=== PATIENT | male | born 1945 | race Caucasian/White ===

== ENCOUNTER 2017-02-10 11:01 | Outpatient (CLI) | payer MEDICARE, OTHER ==
--- NOTE | 2017-02-10 15:07 | CT ---
CT ANGIOGRAM OF THE ABDOMINAL AORTA AND BILATERAL LOWER EXTREMITY RUNOFF CT ANGIOGRAM INCLUDING 3D RE NDERING: History: 71-year-old male with atherosclerotic redding arteries of extremities. Prostate CA with radiation two years ago. Prior cholecystectomy and back surgery. FINDINGS: Prominent right coronary artery calcific disease. Status post cholecystectomy. Moderate to severe generalized atherosclerotic calcification of the abdominal aorta including minimal focal aneurysmal dilatation of the infrarenal abdominal aorta up to 2.5 cm in AP dimension maximally . Atherosclerotic calcific disease involving right and left common iliac and external iliac arteries with proximal common iliac artery stenosis up to 50-60% of the proximal left common iliac artery and 50% of the right common iliac artery. There are bilateral fat containing inguinal hernias. There is c olonic diverticulosis without diverticulitis. Multilevel variable severity canal, lateral recess, and foraminal stenosis of the lumbar spine. Multiple surgical clips in the pelvis. There are moderate stenosis changes of both right and left com mon femoral arteries up to 50-60% range. Right and left superficial femoral arteries demonstrate nume chandrika foci of 50-70% stenosis bilaterally but no evidence for occlusive disease. No significant stenot ic changes within the popliteal arteries bilaterally. There is three vessel run off into both right and left lower legs down to the level of the upper ankl e regions bilaterally. No evidence for occlusive disease. IMPRESSION: Mostly moderate to severe arterial vascular calcific disease of the aorta and both run off lower extr emity vessels with multiple foci of up to 50-60% stenosis of the right and left common iliac arteries and common femoral arteries and up to 50-70% stenoses at multiple levels involving both right and le ft superficial femoral arteries but no evidence for occlusive disease. Bilateral three vessel lower e xtremity ruff off. No evidence of three vessel occlusive disease. Bilateral fat containing inguinal hernias. Colonic diverticulosis without diverticulitis. Multilevel variable severity canal, lateral recess, and foraminal stenosis. Post op changes involving the pelvis and status post cholecystectomy. No significant changes involving the celiac, superior mesenteric ar ramana, inferior mesenteric arteries or renal arteries. POS: [facility]
== END 2017-02-10 11:02 | disposition home or self-care (01) ==
LOC: CT 11:01
PROVIDERS: ATTEND Internal Medicine Cardiovascular Disease
DX: I70.213 Atherosclerosis of native arteries of extremities with intermittent claudication, bilateral legs (principal)
CPT/HCPCS: 75635

== ENCOUNTER 2017-07-20 09:07 | Outpatient (CLI) | payer MEDICARE, OTHER ==
--- NOTE | 2017-07-20 11:51 | CT ---
CT ABDOMEN AND PELVIS WITH AND WITHOUT IV CONTRAST: Date: 07/20/17 INDICATION: History of hematuria and prostate cancer. Status post radiation therapy 3 years ago. COMPARISON: Prior CTA of the abdomen and pelvis with runoff dated 02/10/17. FINDINGS: No renal or ureteral calculus is demonstrated. There are bilateral renal vascular calcifications. No hydronephrosis is evident. No gross urothelial lesion is evident. There is marked thickening of the b ladder wall, which is stable to the prior exam, likely related to radiation-induced changes to the bl adder wall from prior radiation-induced cystitis. Lung bases are clear. There is mild fatty infiltration of the liver. The gallbladder is surgically absent. The pancreas and adrenal glands are normal appearing. No solid renal lesion is demonstrated. There is scattered colon ic diverticula. There is a fat-containing left inguinal hernia. There is bilateral common iliac graft stents which vail ve been placed since 02/10/17. There is scattered degenerative and osteoarthritic change. There is mild degenerative dextroscoliosis of the lumbar spine. IMPRESSION: 1. No solid renal lesion is evident. 2. Marked wall thickening involving the bladder is stable to the prior exam, likely related to radia tion therapy. 3. Postsurgical change of prostatectomy and interval placement of bilateral common iliac arterial st ents. 4. Fatty liver. 5. Cholecystectomy. 6. Other chronic findings as above. POS: [facility]
[2017-07-20] MEDS ORDERED: Iopamidol 370 76% 100 ML VIAL ONE (12:35)
== END 2017-07-20 09:08 | disposition home or self-care (01) ==
LOC: CT 09:07
PROVIDERS: ATTEND Urology
DX: C61 Malignant neoplasm of prostate (principal); N32.89 Other specified disorders of bladder; K76.0 Fatty (change of) liver, not elsewhere classified; R31.0 Gross hematuria; Z90.49 Acquired absence of other specified parts of digestive tract; Z90.79 Acquired absence of other genital organ(s)
CPT/HCPCS: 74178; 82565

== ENCOUNTER 2017-12-30 09:21 | Outpatient (CLI) | payer MEDICARE, OTHER ==
--- NOTE | 2017-12-30 12:07 | ULT ---
ABDOMINAL AORTIC ULTRASOUND: Date: 12-30-17 Comparison: None Provided Clinical History: Evaluate for abdominal aortic aneurysm. Technique: Multiplanar grayscale sonographic imaging of the abdominal aorta is obtained. Imaging includes color flow and spectral analysis. FINDINGS: Evaluation of the abdominal aorta is quite limited secondary to bowel gas and patient body habitus. T he proximal abdominal aorta is not well seen. The mid abdominal aorta demonstrates no evidence for an eurysm, measuring up to approximately 1.8 cm. Distal abdominal aorta is limited in assessment as well and measures up to approximately 2.5 cm. Common iliac arteries are nonvisualized. IMPRESSION: Limited assessment of the abdominal aorta secondary to body habitus and bowel gas. Distal abdominal a daniel appears to measure up to 2.5 cm. POS: [facility]
== END 2017-12-30 09:22 | disposition home or self-care (01) ==
LOC: BICULT 09:21
PROVIDERS: ATTEND General Practice
DX: I71.4 Abdominal aortic aneurysm, without rupture (principal)
CPT/HCPCS: 76775

== ENCOUNTER 2019-04-29 12:23 | Emergency (ER) | payer MEDICARE ==
[~2019-04-29 12:23] MED LIST: Iopamidol-370 76% 500 ML 1 ML ONE
[2019-04-29] MEDS ORDERED: Morphine 4 MG/ML VIAL ONE (13:39)
[2019-04-29 13:43] LABS: #Eosinphils 0.5 thou/uL (0.0-0.7); #Lymphocytes 1.2 thou/uL (1.20-3.40); #Monocytes 0.9 thou/uL (0.11-0.59); %Basophils 0.3 % (0.0-1.0); %Eosinophils 4.1 % (0.0-10.0); %Lymphocytes 9.6 % (21.0-51.0); %Monocytes 7.3 % (0.0-10.0); %Neutrophils 78.8 % (42.0-75.0); Hemoglobin 15.5 g/dL (14.0-18.0); Mean Corpuscular HGB CONC 34.4 g/dL (32.0-36.0); Mean Corpuscular Hemoglobin 32.6 pg (27.0-31.0); Mean Corpuscular Volume 94.7 fL (78.0-98.0); Mean Platelet Volume 8.7 fL (7.4-10.4); Platelet Count 218 thou/uL (130-400); RBC Distribution Width 13.2 % (11.5-14.5); Red Blood Cell (RBC) Count 4.77 mill/uL (4.70-6.10); White Blood Cell (WBC) Count 12.7 thou/uL (4.8-10.8)
[2019-04-29 14:12] LABS: ALT (SGPT) 25 U/L (8-55); AST (SGOT) 19 U/L (5-34); Albumin 4.3 g/dL (3.4-4.8); Alkaline Phosphatase 80 U/L (40-110); Anion Gap 12 mmol/L (10-20); BUN (Urea Nitrogen) 22 mg/dL (8.4-25.7); Bilirubin, Total 0.8 mg/dL (0.2-1.2); Calc. Creatinine Clearance 0 mL/min (70-130); Calcium 9.2 mg/dL (7.8-10.44); Carbon Dioxide 20 mmol/L (23-31); Chloride 107 mmol/L (98-107); Estimated GFR-MDRD 63; Glucose 104 mg/dL (83-110); Lipase 12 U/L (8-78); Potassium 3.7 mmol/L (3.5-5.1); Protein, Total 7.3 g/dL (5.8-8.1); Sodium 135 mmol/L (136-145)
[2019-04-29 14:29] LABS: Bacteria/HPF None Seen HPF (None Seen); Bilirubin Negative (Negative); Blood, Urine Negative (Negative); Clarity Clear (Clear); Glucose, Urine (Dipstick) Normal (Negative); Leukocyte Negative Leu/uL (Negative); Mucous/LPF 1+ LPF (<2+); Nitrite Negative (Negative); Protein, Urine (Dipstick) 70 mg/dL (Neg-Trace); RBC/HPF 0-3 HPF (0-3); Squamous Epithelial 0-3 HPF (0-3); Urobilinogen Normal mg/dL (Less than 2); WBC/HPF 0-3 HPF (0-3)
[2019-04-29] MEDS ORDERED: Pantoprazole 80 MG in Sodium Chloride 0.9% 100 ML IVP SCH (14:45)
--- NOTE | 2019-04-29 16:36 | CT ---
EXAM: Abdomen and pelvic CT scan with contrast: HISTORY: Abdominal pain diarrhea COMPARISON: 07/20/2017 FINDINGS: The visualized lung bases are clear. Liver: Evidence for some fatty changes in the liver. Gallbladder:Status post cholecystectomy. Pancreas:Unremarkable Spleen:Unremarkable. Adrenal glands:Unremarkable. Kidneys:Prominent renal vascular calcifications without overt renal calculi or acute obstruction. No solid or cystic renal mass. No evidence for bowel obstruction. No CT evidence for acute appendicitis. The urinary bladder is unremarkable. Reproductive system:Unremarkable No abscess, adenopathy, or abnormal fluid collection within the abdomen or pelvis. Focal aneurysmal dilatation of the infrarenal abdominal aorta up to 2.6 cm with marked atheroscleroti c calcific disease of the aorta and iliac arteries with bilateral iliac stents. Extensive surgical clips in the pelvis. Colonic diverticulosis without acute diverticulitis. Left fat-containing inguina l hernia. Multilevel lumbar spine spondylosis with some associated stenosis. IMPRESSION: No significant acute process in the abdomen or pelvis. Other findings as above.
[2019-04-29] MEDS ORDERED: Pantoprazole 40 MG VIAL ONE (17:42)
== END 2019-04-29 18:01 | disposition home or self-care (01) ==
LOC: ERS 12:23
DX: K92.2 Gastrointestinal hemorrhage, unspecified (principal); I10 Essential (primary) hypertension; E78.5 Hyperlipidemia, unspecified; J44.9 Chronic obstructive pulmonary disease, unspecified; G47.33 Obstructive sleep apnea (adult) (pediatric); Z87.891 Personal history of nicotine dependence; Z79.899 Other long term (current) drug therapy
CPT/HCPCS: 36415; 74177; 80053; 81003; 81015; 82274; 83690; 85025; 86850; 86900; 86901; 94640; 96361; 96365; 96366; C9113; J2270; J3490; J7620; Q9967

== ENCOUNTER 2019-08-04 08:24 | Outpatient (CLI) | payer MEDICARE, OTHER ==
[2019-08-04 09:55] LABS: #Eosinphils 0.2 thou/uL (0.0-0.7); #Monocytes 0.6 thou/uL (0.11-0.59); #Neutrophils 7.7 thou/uL (1.40-6.50); %Basophils 0.1 % (0.0-1.0); %Eosinophils 2.5 % (0.0-10.0); %Lymphocytes 10.5 % (21.0-51.0); %Monocytes 6.1 % (0.0-10.0); %Neutrophils 80.8 % (42.0-75.0); Mean Corpuscular HGB CONC 33.7 g/dL (32.0-36.0); Mean Corpuscular Hemoglobin 32.2 pg (27.0-31.0); Mean Corpuscular Volume 95.6 fL (78.0-98.0); Mean Platelet Volume 8.5 fL (7.4-10.4); Platelet Count 210 thou/uL (130-400); RBC Distribution Width 13.4 % (11.5-14.5); Red Blood Cell (RBC) Count 4.65 mill/uL (4.70-6.10); White Blood Cell (WBC) Count 9.6 thou/uL (4.8-10.8)
[2019-08-04 10:16] LABS: ALT (SGPT) 25 U/L (8-55); AST (SGOT) 19 U/L (5-34); Alkaline Phosphatase 72 U/L (40-110); Anion Gap 12 mmol/L (10-20); BUN (Urea Nitrogen) 25 mg/dL (8.4-25.7); Bilirubin, Total 0.8 mg/dL (0.2-1.2); Calc. Creatinine Clearance 0 mL/min (70-130); Calcium 9.3 mg/dL (7.8-10.44); Carbon Dioxide 26 mmol/L (23-31); Chloride 102 mmol/L (98-107); Estimated GFR-MDRD 56; Globulin 2.9 g/dL (2.4-3.5); Glucose 133 mg/dL (83-110); Potassium 4.1 mmol/L (3.5-5.1); Protein, Total 6.9 g/dL (5.8-8.1); Sodium 136 mmol/L (136-145)
[2019-08-04 17:50] LABS: SARS-CoV-2 MS2 Positive; SARS-CoV-2 N Gene Negative; SARS-CoV-2 S Gene Negative; SARS-CoV-2 orf1ab Negative
== END 2019-08-04 08:25 | disposition home or self-care (01) ==
LOC: LABBT 08:24
PROVIDERS: ATTEND Internal Medicine Cardiovascular Disease
DX: Z01.812 Encounter for preprocedural laboratory examination (principal); Z11.59 Encounter for screening for other viral diseases
CPT/HCPCS: 80053; 85025; U0003; 87635

== ENCOUNTER 2019-08-07 05:50 | Day surgery (SDC) | payer MEDICARE, OTHER ==
[2019-08-04 08:42] VITALS: BMI 33.3
[2019-08-07] MEDS ORDERED: Verapamil 5 MG/2 ML VIAL ONE (08:04)
[2019-08-07] MEDS ORDERED: Nitroglycerin 100MG/250ML BOT 250 ML ONE (08:04)
[2019-08-07] MEDS ORDERED: Heparin 10,000 UNITS/1 ML VIAL ONE (08:04)
[2019-08-07] MEDS ORDERED: Midazolam HCl 2 mg/2 ml Vial ONE (08:19)
[2019-08-07] MEDS ORDERED: Fentanyl 100 MCG/2 ML VIAL ONE (08:19)
[2019-08-07] MEDS ORDERED: Iopamidol 370 76% 100 ML VIAL ONE (09:16)
--- NOTE | 2019-08-07 22:23 | CON ---
DATE OF CONSULTATION: 08/07/2019 REQUESTING PHYSICIAN: Parish Johns MD PRIMARY CARE PHYSICIAN: Reji Henry MD CHIEF COMPLAINT: Dyspnea on exertion. HISTORY OF PRESENT ILLNESS: The patient is a 74-year-old man who smoke for about 30 years, but quit around 20 years ago. 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 Starting at about 2 years ago, however, he gets short of breath quite easily, and he claims that now it is at a point where simply walking 10 or 20 yards, he will get short of breath. He does note, however, that his breathing is not consistently bad and we both noticed that during the start of our interview, he seemed noticeably short of breath, but as the interview progressed, his breathing seemed easier. He is rather vague about any associated chest pressure or heaviness. Dr. Johns was able to elicit that history. I was not able to clearly elicit such a history. Finally, he said that occasionally he gets a bit of chest heaviness, but it is certainly not a prominent feature of his symptoms. PAST MEDICAL HISTORY: Significant for aortoiliac peripheral vascular disease, hypertension, obstructive sleep apnea, and prostate cancer. He has undergone previous prostatectomy and bilateral common iliac stenting. MEDICATIONS: 1. Adult aspirin a day. 2. Lisinopril 20 mg/hydrochlorothiazide 25 mg once a day. 3. Isordil 30 mg a day has recently been added. 4. Zetia 10 mg a day. 5. Crestor 40 mg a day. 6. Ventolin rescue inhaler. 7. Symbicort two puffs b.i.d. scheduled. 8. P.r.n. omeprazole. ALLERGIES: HE DENIES ANY MEDICAL ALLERGIES. SOCIAL HISTORY: He quit smoking about 20 years ago. FAMILY HISTORY: Significant for cardiovascular disease in his father. REVIEW OF SYSTEMS: Most notable for his dyspnea on exertion. He denies any focal eye speech, facial or extremity symptoms consistent with TIAs. He is equivocal about any chest pain, pressure, or squeezing. He does report numbness and burning pain in the soles of his feet that is worse when he walks. He reports some hesitancy to his stream and dribbling afterward. PHYSICAL EXAMINATION: GENERAL: He is an obese man who initially appeared short of breath just simply talking to me and was quite obviously breathing through pursed lips. During the course of our interview, both aspects of his breathing seemed to improve. HEENT: His height is 6 feet 2 inches. Weight is 253 pounds. Heart rate was 80, blood pressure 134/80. He has no xanthelasma. No JVD. No carotid bruits. CHEST: Clear, but distant breath sounds. When I asked him to blow out hard against my hand, he was able to move air for fairly long periods of time and it seemed to be diminished in force. HEART: Regular rate and rhythm. ABDOMEN: Obese, soft, and nontender. Palpable radial and dorsalis pedis pulses bilaterally. He had some spider varicosities, but no bulging varicosities. No clubbing, cyanosis, or edema. NEUROLOGIC: Grossly nonfocal. LABORATORY DATA: His white count was 9.6, hemoglobin 15.0, hematocrit 44.5, platelets 210,000. Electrolytes were normal. Glucose 133, BUN 25, creatinine 1.27, estimated GFR 56. Calcium is 9.2, protein 6.9, albumin 4.0, bilirubin 0.8, alkaline phosphatase 72, AST 19, ALT 25. About 3 months ago, he had lipids in the middle of the afternoon, that were triglycerides of 90, cholesterol 134, LDL 77, HDL 39. At the same time, his PSA was less than 0.02. I am not able to find a chest x-ray in our system. In 2017, he had a chest x-ray in our system that showed aortic knob calcification with some prominence to parenchymal markings. CT scan done about that same time that showed calcification in the arch and descending aorta with some scattered posterior calcification in the ascending aorta at about the level of the PA bifurcation. His cardiac catheterization shows a right-dominant system with approximately occluded right coronary that fills by [id number] collaterals. He has about a 50% or 60% distal left main lesion that extends into the origin of a fairly large circumflex with a ramus type OM1 and then posterolateral OM 2. He has about a 95% ostial LAD lesion. No ventriculogram or LV pressures were taken. He had as an outpatient in Dr. Johns' office, an echocardiogram that showed an LVEF of 55% to 60% with borderline LVH with normal size of the left and right atria and normal aortic valve. There is only mild tricuspid regurgitation and mild mitral regurgitation. He had a Lexiscan stress test that showed no stress-induced changes in his EKG with perfusion defects in the inferior and inferolateral davidson under stress but normal perfusion at rest. The resting EF was 61% and stress EF was 56%. IMPRESSION AND RECOMMENDATIONS: Left main coronary artery disease with modest compromise of his circumflex system, but a very high-grade ostial LAD lesion and occlusion of his right coronary. His left ventricular ejection fraction even under stress was fairly good, possible that his shortness of breath is an anginal equivalent, but it seems out of proportion to be all cardiac. He has a pulmonology appointment pending. He should have updated chest x-ray perhaps even a chest CT scan and formal PFTs. I think it is unlikely that his lung function is normal, but I also think it is unlikely that it is bad enough to make him a prohibitive risk, particularly given the significance of his coronary anatomy. Job ID: [id number]
== END 2019-08-07 12:20 | disposition home or self-care (01) ==
LOC: CCL 05:50
PROVIDERS: ATTEND Internal Medicine Cardiovascular Disease
PROC: 4A023N7 Measurement of Cardiac Sampling and Pressure, Left Heart, Percutaneous Approach (ICD-10-PCS; principal; 2019-08-07)
PROC: B2111ZZ Fluoroscopy of Multiple Coronary Arteries using Low Osmolar Contrast (ICD-10-PCS; 2019-08-07)
DX: I25.10 Atherosclerotic heart disease of native coronary artery without angina pectoris (principal); I25.82 Chronic total occlusion of coronary artery; I10 Essential (primary) hypertension; G47.33 Obstructive sleep apnea (adult) (pediatric); I08.8 Other rheumatic multiple valve diseases; I73.9 Peripheral vascular disease, unspecified; E66.9 Obesity, unspecified; Z68.33 Body mass index [BMI] 33.0-33.9, adult; Z85.46 Personal history of malignant neoplasm of prostate; Z87.891 Personal history of nicotine dependence; Z79.82 Long term (current) use of aspirin; Z79.899 Other long term (current) drug therapy; Z95.820 Peripheral vascular angioplasty status with implants and grafts
CPT/HCPCS: 93454; 99152; C1769; J1644; J2250; J3010; Q9967

== ENCOUNTER 2019-08-29 12:53 | Outpatient (CLI) | payer MEDICARE, OTHER ==
--- NOTE | 2019-08-29 14:17 | RAD ---
EXAM: CHEST TWO VIEWS: 08/29/19 HISTORY: Dyspnea, COPD. Shortness of breath. COMPARISON: 09/03/16. FINDINGS: Heart size is within normal limits. The lungs are clear. Mild biapical pleural thickening as well as some bilateral pleural thickening in the lateral chest region. No confluent pneumonia, overt edema, o r pleural effusion. IMPRESSION: Bilateral pleural thickening. No acute intrathoracic disease. Atherosclerosis of the aorta. POS: [facility]
== END 2019-08-29 12:54 | disposition home or self-care (01) ==
LOC: BICRAD 12:53
PROVIDERS: ATTEND Internal Medicine Critical Care Medicine
DX: R06.00 Dyspnea, unspecified (principal); I70.0 Atherosclerosis of aorta; J92.9 Pleural plaque without asbestos
CPT/HCPCS: 71046

== ENCOUNTER 2019-09-05 12:24 | Outpatient (CLI) | payer MEDICARE, OTHER ==
--- NOTE | 2019-09-05 13:04 | RAD ---
EXAM: Chest 2 views: HISTORY: Shortness of breath and COPD COMPARISON: 08/29/2019 FINDINGS: There is a normal-sized cardiomediastinal silhouette. There is no evidence of consolidation, mass, or pleural effusion. The bones are unremarkable. IMPRESSION: No evidence of acute cardiopulmonary disease
--- NOTE | 2019-09-05 13:45 | CT ---
EXAM: CT of the chest with contrast HISTORY: Shortness of breath and COPD COMPARISON: None TECHNIQUE: Multiple contiguous axial images were obtained in a CT the chest with contrast. Coronal an d sagittal reformats were performed. FINDINGS: HEART: Normal in size without focal cardiac abnormality. Calcic lesions in the coronary arteries and aorta. MEDIASTINUM: No hilar or mediastinal lymphadenopathy. LUNGS: No focal infiltrates, nodules, or masses. PLEURAL SPACE: No pneumothorax or pleural effusion. CHEST WALL SOFT TISSUES: Unremarkable OSSEOUS STRUCTURES: Mild degenerative changes in the spine. VISUALIZED SUBDIAPHRAGMATIC STRUCTURES: Unremarkable IMPRESSION: No evidence of acute intrathoracic abnormality.
== END 2019-09-05 12:25 | disposition home or self-care (01) ==
LOC: SCSCT 12:24
PROVIDERS: ATTEND Thoracic Surgery (Cardiothoracic Vascular Surgery)
DX: J44.9 Chronic obstructive pulmonary disease, unspecified (principal); I25.118 Atherosclerotic heart disease of native coronary artery with other forms of angina pectoris
CPT/HCPCS: 71046; 71260; 82565

== ENCOUNTER 2019-09-10 11:13 | Inpatient (IN) | payer MEDICARE, OTHER ==
[2019-09-10 11:42] LABS: #Eosinphils 0.3 thou/uL (0.0-0.7); #Monocytes 0.9 thou/uL (0.11-0.59); #Neutrophils 7.7 thou/uL (1.40-6.50); %Basophils 0.1 % (0.0-1.0); %Eosinophils 2.8 % (0.0-10.0); %Lymphocytes 9.7 % (21.0-51.0); %Monocytes 8.8 % (0.0-10.0); %Neutrophils 78.6 % (42.0-75.0); Hemoglobin 15.1 g/dL (14.0-18.0); Mean Corpuscular HGB CONC 33.7 g/dL (32.0-36.0); Mean Corpuscular Hemoglobin 31.8 pg (27.0-31.0); Mean Corpuscular Volume 94.4 fL (78.0-98.0); Mean Platelet Volume 8.3 fL (7.4-10.4); Platelet Count 221 thou/uL (130-400); RBC Distribution Width 13.3 % (11.5-14.5); Red Blood Cell (RBC) Count 4.75 mill/uL (4.70-6.10); White Blood Cell (WBC) Count 9.7 thou/uL (4.8-10.8)
[2019-09-10 12:05] LABS: ALT (SGPT) 24 U/L (8-55); AST (SGOT) 18 U/L (5-34); Alkaline Phosphatase 79 U/L (40-110); Anion Gap 12 mmol/L (10-20); BUN (Urea Nitrogen) 23 mg/dL (8.4-25.7); Bilirubin, Total 0.6 mg/dL (0.2-1.2); Calc. Creatinine Clearance 0 mL/min (70-130); Calcium 9.6 mg/dL (7.8-10.44); Carbon Dioxide 25 mmol/L (23-31); Chloride 104 mmol/L (98-107); Estimated GFR-MDRD 58; Glucose 104 mg/dL (83-110); Potassium 3.9 mmol/L (3.5-5.1); Sodium 137 mmol/L (136-145)
--- NOTE | 2019-09-10 14:12 | RAD ---
CHEST ONE VIEW: History: Chest pain Comparison: 02-12-13, 09-05-2019 FINDINGS: The heart size is within normal limits considering the portable technique. There are some atheroscler otic changes of the aorta. The lungs are clear of any infiltrative process. There are no signs of shaniqua lure. IMPRESSION: No active intrathoracic disease. POS: [facility]
[2019-09-10] MEDS ORDERED: Aspirin Chewable 81 MG TAB ONE (14:23)
[2019-09-10 15:17] LABS: Troponin I 0.027 ng/mL (< 0.028)
[2019-09-10] MEDS ORDERED: Acetaminophen 325 MG TAB PO PRN (15:40)
[2019-09-10] MEDS ORDERED: Morphine 2 MG/ML VIAL SLOW IVP PRN (15:40)
[2019-09-10] MEDS ORDERED: Nitroglycerin 0.4 MG TAB (25 Tab Bottle) PO PRN (15:40)
[2019-09-10] MEDS ORDERED: hydrALAZINE 20 MG/ML VIAL SLOW IVP PRN (15:40)
[2019-09-10 15:57] VITALS: BMI 34.3
[2019-09-10] MEDS ORDERED: Enoxaparin Sodium 120 MG/0.8 ML SYRINGE SC SCH (16:30)
[2019-09-10] MEDS ORDERED: Communication Order-Pharmacy FS ONE (16:30)
[2019-09-10] MEDS: Nitroglycerin 2% Ointment 1 INCH/1 GM Packet TOP SCH (17:13)
[2019-09-10 17:45] LABS: Troponin I Less than 0.010 ng/mL (< 0.028)
[2019-09-10] MEDS: Mometasone 100 MCG/Formoterol 5 MCG 120 PUFF INHALER INH SCH (18:52)
--- NOTE | 2019-09-10 20:56 | HP ---
PRIMARY CARE PHYSICIAN: Reji Henry MD CHIEF COMPLAINT: Chest pain. HISTORY OF PRESENT ILLNESS: Mr. Meyer is a very pleasant 74-year-old gentleman, who has a history of coronary artery disease. He had recently a routine stress test done, which had some findings which were suggestive of coronary artery disease. He says that he was seen by Dr. Johns for this. He then underwent a cardiac catheterization, which apparently demonstrated multi-vessel coronary artery disease and he was sent to see Dr. Granado. It was felt that he would need at least a 3-vessel bypass surgery and the plan was to have this procedure done on September 21. He was instructed however that if he were to develop any chest pain, that he should come to the emergency room right away. The patient says that on yesterday he started having a dull pressure-like sensation in the center of his chest. He also noted a very sharp chest pain that followed this, it kind of went into his back. He rated it about a 5/10. There was no associated symptoms except for some nausea and he says he felt tired and had no energy. He said that it went away on its own and then the following morning he had some additional chest pain as well. Again, at rest very similar characteristics and for this reason, he came to the ER for evaluation. He denies any leg pain or leg swelling. No PND. No orthopnea. No palpitations. REVIEW OF SYSTEMS: All systems were reviewed and are negative except for that mentioned in the history of present illness. PAST MEDICAL HISTORY: Significant for hypertension, COPD, hyperlipidemia, coronary artery disease, aortoiliac peripheral vascular disease, obstructive sleep apnea, and prostate cancer. PAST SURGICAL HISTORY: He has had surgery for his prostate as well as back surgery and a cholecystectomy. ALLERGIES: NO KNOWN DRUG ALLERGIES. SOCIAL HISTORY: He is , has 2 children. His , Margareth, is his surrogate decision maker. He would like to be a full code. He is a former smoker. He quit about 25 years ago. Prior to that he smoked a pack a day for 25 years. Denies any alcohol use. FAMILY HISTORY: Significant for coronary artery disease in his father. CURRENT MEDICATIONS: 1. Lisinopril 10 mg daily. 2. Symbicort 80/4.5 two puffs twice a day. 3. Crestor 40 mg at bedtime. 4. Zetia 10 mg daily. 5. Metronidazole 500 mg twice a day. 6. Isosorbide mononitrate extended release 30 mg daily. 7. Aspirin 81 mg p.o. daily. PHYSICAL EXAMINATION: GENERAL: He is alert and oriented. He appears to be in no acute distress. He is well developed and well nourished. VITAL SIGNS: His blood pressure was 133/80, heart rate 74, respiratory rate of 22, and temperature is 96.7. HEENT: Pupils are equal, round, and reactive. Extraocular muscles are intact. His sclerae are anicteric. NECK: There is no adenopathy, possibly a very soft bruit on the right. CARDIOVASCULAR: He had a normal S1 and S2. I did not appreciate an S3 or S4. No murmurs, clicks, or rubs. ABDOMEN: Obese, soft, nontender, and nondistended. Positive for bowel sounds. He did have some diffuse abdominal pain primarily in the right and left flanks, but there is no rebound no guarding. No organomegaly. EXTREMITIES: He has 1+ edema. No calf tenderness. No joint effusions. NEUROLOGIC: The exam is grossly nonfocal. SKIN AND INTEGUMENT: No skin changes. No rash. LABORATORY DATA: Lab results and imaging on his EKG by my reading, sinus rhythm, no evidence of any ST wave changes, the rate was 72. Chest x-ray showed some cardiomegaly, otherwise, no infiltrates or effusions also by my reading. Lab results; white blood cell count was 6.7, hemoglobin 15.1, hematocrit is 44.8, and platelet count is 221. Sodium 137, potassium 3.9, chloride is 104, CO2 is 25, BUN of 23, creatinine 1.22, and glucose is 104. Troponin was 0.011. ASSESSMENT: This is a pleasant 74-year-old gentleman, who presents with chest pain in the setting of known coronary artery disease. He will be placed in observation. We will place him on aspirin and nitrates. We will hold off on a beta-margarita given his chronic obstructive pulmonary disease. Consult Cardiology to see if he would recommend pushing up his date for bypass surgery. 1. Hypertension. We will need to reconcile and restart his home medications and p.r.n. medicines and aortoiliac peripheral vascular disease. This will also need to be deferred until his coronary artery disease is addressed. 2. Prostate cancer. This is clinically quiescent at this time. Job ID: [id number]
[2019-09-10] MEDS ORDERED: Rosuvastatin 20 MG TAB PO SCH (21:00)
--- NOTE | 2019-09-10 23:04 | CON ---
DATE OF CONSULTATION: HISTORY OF PRESENT ILLNESS: The patient is a 74-year-old gentleman, who presents with chest discomfort. The patient was seen in last month with chest discomfort. He underwent a cardiac catheterization. He was found to have a 60% left main lesion. The left anterior descending artery had a 60% lesion and the right coronary artery had a 100% occlusion. There was collateral flow to the posterior descending artery. The patient was placed on medical therapy. He was in his usual state of health when he suddenly developed mid sternal chest discomfort. It radiated into his chest. The discomfort radiated into his jaw. This began yesterday and has continued today. The discomfort usually lasts several minutes. PAST MEDICAL HISTORY: 1. Coronary artery disease. 2. Hypertension. 3. Hypercholesterolemia. PAST SURGICAL HISTORY: Back surgery, cholecystectomy, and prostate surgery. MEDICATIONS: On admission were, 1. Lisinopril. 2. Prinzide 1 tablet b.i.d. 3. Imdur 30 daily. 4. Zetia 10 daily. 5. Aspirin 81 daily. ALLERGIES: NO KNOWN DRUG ALLERGIES. FAMILY HISTORY: Strong family history of heart disease. REVIEW OF SYSTEMS: Ten-point system otherwise unremarkable. No history of easy bruising or bleeding or bright red blood per rectum. PHYSICAL EXAMINATION: GENERAL: Obese gentleman, in mild distress. VITAL SIGNS: Blood pressure 122/71. NECK: No jugular venous distention. LUNGS: Clear to auscultation. HEART: Regular rate and rhythm. Normal S1 and S2 with no murmurs. ABDOMEN: Distended. EXTREMITIES: Showed no edema. VASCULAR: Radial pulse 2+. LABORATORY DATA: White blood count 9.7, hemoglobin 15.1, hematocrit 44.2, platelets are 221. Sodium 137, potassium 3.9, chloride 104, bicarb 25, BUN 23, and creatinine 1.2. Troponin 0.011. EKG normal sinus rhythm with a normal ECG. IMPRESSION: 1. Unstable angina. 2. History of severe three-vessel coronary artery disease. 3. Hypertension. 4. Dyslipidemia. 5. Obesity. This gentleman presents with unstable angina. The patient will be treated with full dose Lovenox. We will also place the patient on nitroglycerin paste. We will follow this patient with you through his hospitalization. Job ID: [id number] [facility]
--- NOTE | 2019-09-10 23:23 | CON ---
DATE OF CONSULTATION: HISTORY OF PRESENT ILLNESS: This is a 74-year-old who underwent a cardiac cath about 5 weeks ago for dyspnea, and was found to have occluded right coronary artery, severe proximal LAD, and moderate distal left main disease. He presents today with chest pain and negative troponin x2. PAST MEDICAL HISTORY: Includes dyslipidemia, COPD, sleep apnea, hypertension. PAST SURGICAL HISTORY: Cholecystectomy, prostate surgery, back surgery, and iliac stenting. He is followed by Dr. Johns. SOCIAL HISTORY: He is , and is a former smoker but none in 20 years. ALLERGIES: HE HAS NO KNOWN ALLERGIES. MEDICATIONS: Include, 1. Lisinopril 10. 2. Symbicort. 3. Crestor 40. 4. Zetia 10. 5. Isosorbide 30. 6. Aspirin 81. PHYSICAL EXAMINATION: VITAL SIGNS: Blood pressure 133/83, heart rate 74. Weight 253 pounds, height 6 feet. GENERAL: Overweight gentleman, in no distress. He is mildly dyspneic in our conversation, but not wearing oxygen. CARDIAC: Regular rate and rhythm. No murmurs. LUNGS: Clear to auscultation anteriorly. ABDOMEN: Obese. EXTREMITIES: Palpable dorsalis pedis and radial pulses with no peripheral edema. NEUROLOGIC: Intact. I have reviewed his cardiac cath and laboratory values, and we will schedule him for his coronary artery bypass grafting tomorrow with Dr. Granado, and informed consent has been obtained. Job ID: [id number]
[2019-09-11] MEDS: Nitroglycerin 2% Ointment 1 INCH/1 GM Packet TOP SCH (02:15)
[2019-09-11 04:21] LABS: #Eosinphils 0.3 thou/uL (0.0-0.7); #Lymphocytes 1.2 thou/uL (1.20-3.40); #Monocytes 0.7 thou/uL (0.11-0.59); #Neutrophils 6.6 thou/uL (1.40-6.50); %Basophils 0.2 % (0.0-1.0); %Eosinophils 3.9 % (0.0-10.0); %Lymphocytes 13.3 % (21.0-51.0); %Monocytes 7.7 % (0.0-10.0); %Neutrophils 74.9 % (42.0-75.0); Mean Corpuscular HGB CONC 34.5 g/dL (32.0-36.0); Mean Corpuscular Hemoglobin 32.8 pg (27.0-31.0); Mean Corpuscular Volume 94.9 fL (78.0-98.0); Mean Platelet Volume 8.7 fL (7.4-10.4); Platelet Count 194 thou/uL (130-400); RBC Distribution Width 13.4 % (11.5-14.5); Red Blood Cell (RBC) Count 4.26 mill/uL (4.70-6.10); White Blood Cell (WBC) Count 8.8 thou/uL (4.8-10.8)
[2019-09-11 04:48] LABS: Anion Gap 13 mmol/L (10-20); BUN (Urea Nitrogen) 22 mg/dL (8.4-25.7); Calc. Creatinine Clearance 84 mL/min (70-130); Carbon Dioxide 24 mmol/L (23-31); Cardiac Risk 3.5 (Less than 4.5); Chloride 102 mmol/L (98-107); Cholesterol 111 mg/dl (< 200 Desired); Estimated GFR-MDRD 55; Glucose 109 mg/dL (83-110); HDL Cholesterol 32 mg/dL (>60 Neg Risk); LDL Cholesterol, Calculated 58 mg/dL; Potassium 3.9 mmol/L (3.5-5.1); Sodium 135 mmol/L (136-145); Triglycerides 104 mg/dL (Less than 150)
[2019-09-11] MEDS: Mometasone 100 MCG/Formoterol 5 MCG 120 PUFF INHALER INH SCH (07:14)
--- NOTE | 2019-09-11 08:16 | PDOC.CPN ---
- Subjective Date: 09/11/19 - Objective Allergies/Adverse Reactions: Allergies Allergy/AdvReac Type Severity Reaction Status Date / Time No Known Allergies Allergy Verified 09/10/19 15:52 Visit Medications: Current Medications Acetaminophen (Tylenol) 650 mg PO Q4H PRN PRN Reason: Headache/Fever/Mild Pain (1-3) Stop: 09/11/19 08:59 Albuterol/Ipratropium (Duoneb) 3 ml NEB Q4H PRN PRN Reason: SOB &/or Wheezing Stop: 09/11/19 08:59 Hydralazine HCl (Apresoline) 10 mg SLOW IVP Q4H PRN PRN Reason: SBP > 180 and HR < 70 Stop: 09/11/19 08:59 Lisinopril (Zestril) 10 mg PO DAILY NIKA Stop: 09/11/19 12:00 Last Admin: 09/11/19 06:09 Dose: 10 mg Mometasone Furoate/Formoterol Fumar (Dulera 100 Mcg/5 Mcg Inhaler) 1 puff INH BID-RT NIKA Stop: 09/11/19 08:59 Last Admin: 09/11/19 07:14 Dose: 1 puff Morphine Sulfate (Morphine Sulfate) 2 mg SLOW IVP Q4H PRN PRN Reason: Chest Pain Stop: 09/11/19 08:59 Nitroglycerin (Nitrostat) 0.4 mg PO Q5MIN PRN PRN Reason: Chest Pain Stop: 09/11/19 08:59 Nitroglycerin (Nitro-Bid 2% Ointment) 1 inch TOP Q6HR NIKA Stop: 09/11/19 08:59 Last Admin: 09/11/19 02:15 Dose: Not Given Rosuvastatin Calcium (Crestor) 40 mg PO HS NIKA Stop: 09/11/19 08:59 Last Admin: 09/10/19 23:04 Dose: 40 mg Vital Signs & Weight: Vital Signs Temp Pulse Resp BP Pulse Ox 09/11/19 08:00 96.0 F L 67 18 132/81 95 09/11/19 04:00 98.4 F 77 16 114/79 92 L Weight 253 lb - Physical Exam General: alert & oriented x3 Neck: no masses, no bruit Cardiac: regular rate, regular rhythm Lungs: normal exam Neuro: grossly intact - Labs Result Diagrams: 09/11/19 03:24 09/11/19 03:24 Troponin/CKMB Troponin I Less than 0.010 ng/mL (< 0.028) 09/10/19 17:11 - Assessment/Plan Assessment/Plan: A/P: Severe CAD Severe PVD Pt scheduled for CABG today
[2019-09-11] MEDS ORDERED: Enoxaparin Sodium 40 MG/0.4 ML SYRINGE SC SCH (09:00)
[2019-09-11] MEDS ORDERED: Lisinopril 10 MG TAB PO SCH (09:00)
[2019-09-11] MEDS ORDERED: Enoxaparin Sodium 120 MG/0.8 ML SYRINGE SC SCH (09:00)
[2019-09-11] MEDS ORDERED: Aspirin 325 mg Enteric Coated Tablet PO SCH (09:00)
[2019-09-11] MEDS ORDERED: Ezetimibe 10 MG TAB PO SCH (09:00)
[2019-09-11 09:01] LABS: Hemoglobin 14.7 g/dL (14.0-18.0); Platelet Count 204 thou/uL (130-400)
[2019-09-11] MEDS ORDERED: Fentanyl 100 MCG/2 ML VIAL ONE (09:09)
[2019-09-11] MEDS ORDERED: Midazolam HCl 5 mg/5 ml Vial ONE (09:09)
[2019-09-11] MEDS ORDERED: Dexmedetomidine 200 MCG/2 ML VIAL ONE (09:09)
[2019-09-11] MEDS ORDERED: Vecuronium 10 MG VIAL ONE ×3 (09:09→11:48)
[2019-09-11] MEDS ORDERED: Midazolam HCl 2 mg/2 ml Vial ONE (09:09)
[2019-09-11] MEDS ORDERED: Heparin 10,000 UNITS/1 ML VIAL 30,000 UNITS in Sodium Chloride 0.9% 1,000 ML FS SCH (09:30)
[2019-09-11] MEDS ORDERED: Sodium Chloride 0.9% 20 ML ONE (09:48)
[2019-09-11] MEDS ORDERED: Albumin 5% 500 ML ONE (09:48)
[2019-09-11] MEDS ORDERED: PHENYLEPHRINE-NS 100 MCG/ML 10 ML SYRINGE ONE ×2 (11:47→11:48)
[2019-09-11] MEDS ORDERED: Ondansetron PF 4 MG/2 ML Vial ONE (11:48)
[2019-09-11] MEDS ORDERED: Magnesium Sulfate 1 GM/2 ML VIAL ONE (11:48)
[2019-09-11] MEDS ORDERED: Ketorolac Tromethamine 30 MG/ML VIAL ONE (11:48)
[2019-09-11] MEDS ORDERED: Cardioplegic Soln 1,000 ML BAG ONE (11:48)
[2019-09-11] MEDS ORDERED: Lidocaine 2% PF 5 ML VIAL ONE (11:48)
[2019-09-11] MEDS ORDERED: Potassium Chloride 60 MEQ/30 ML VIAL ONE (11:48)
[2019-09-11] MEDS ORDERED: Heparin 5,000 UNITS/ML VIAL ONE (11:48)
[2019-09-11] MEDS ORDERED: Glycopyrrolate 0.2 MG/ML 5 ML SYRINGE ONE (11:48)
[2019-09-11] MEDS ORDERED: Dexamethasone 20 MG/5 ML VIAL ONE (11:48)
[2019-09-11] MEDS ORDERED: Nitroglycerin 50 MG/250 ML BOT ONE (11:48)
[2019-09-11] MEDS ORDERED: Protamine Sulfate 250 MG/25 ML VIAL ONE (11:48)
[2019-09-11] MEDS ORDERED: Thrombin 5000 UNITS/5 ML VIAL ONE (11:48)
[2019-09-11] MEDS ORDERED: Heparin 30,000 units/30 ml VIAL ONE (11:48)
[2019-09-11] MEDS ORDERED: Papaverine 60 MG/2 ML VIAL ONE (11:48)
[2019-09-11] MEDS ORDERED: EPHEDRINE 25 MG/5 ML SYRINGE ONE (11:48)
[2019-09-11] MEDS ORDERED: Lidocaine 1% PF 5 ML VIAL ONE ×2 (11:48)
[2019-09-11] MEDS ORDERED: Sodium Bicarb 50 MEQ/50 ML Abboject 8.4% SYRINGE ONE (11:48)
[2019-09-11] MEDS ORDERED: Aminocaproic Acid 5 GM/20 ML VIAL ONE (11:48)
[2019-09-11] MEDS ORDERED: Calcium Chloride 1 GM/10 ML Abboject SYRINGE ONE (11:48)
[2019-09-11 12:23] LABS: SARS-CoV-2 MS2 Positive; SARS-CoV-2 N Gene Negative; SARS-CoV-2 S Gene Negative; SARS-CoV-2 orf1ab Negative
--- NOTE | 2019-09-11 12:46 | CON ---
DATE OF CONSULTATION: REASON FOR CONSULTATION: Courtesy consult provided as he is known to me with history of prostate cancer, undergoing anesthesia for CABG, requiring indwelling Andres catheter placement. HISTORY OF PRESENT ILLNESS: Mr. Meyer is a 74-year-old male, well known to me with pathologic T3 N0 [place] sum 3 + 4 prostate cancer, status post radical prostatectomy, pelvic lymph node dissection, cystoscopy on January 01, 2014. He has undergone adjuvant radiation therapy by Dr. Marcum in January 2015. I last saw Mr. Meyer in my office on May 22, 2019, he has rare urge incontinence, urgency. No significant stress incontinence of concern. He previously underwent diagnostic cystoscopy after his radical prostatectomy as he had gross hematuria. CT restaging cystoscopy demonstrated radiation cystitis changes. He was previously on Myrbetriq for urgency, transitioned to VESIcare due to financial constraints. On our last visit, he had minimal postvoid residual and we initiated VESIcare. He has routine follow up with me in November 2019. His PSA demonstrates no evidence of cancer recurrences. I saw the patient in preop, as he is currently admitted due to severe CAD, undergoing bypass surgery with Dr. Granado this morning. As he requires an indwelling Andres catheter with known history of radical prostatectomy, and moreover cystoscopy demonstrating nonobstructing wide caliber bulbar stricture. I informed him that it would be prudent that I place a Andres catheter. If unable, cystoscopic assistance would be advised. at bedside. PAST MEDICAL HISTORY: Hypercholesteremia; hypertension; coronary artery disease , followed by Dr. Johns in which he did undergo cardiac clearance back in November 2013; history of GI bleed; pathologic T3 N0 [place] sum 3 + 4 prostate cancer with focal extraprostatic extension and COPD. SURGICAL HISTORY: Cardiac cath in 1999, previous prostate biopsy in October 2013 , cystoscopy in November 2013. Prior cystoscopy demonstrated wide caliber bulbar stricture. On January 01, 2014, cysto, bilateral pelvic lymph node dissection, radical prostatectomy. In January 2015, adjuvant RT. In August 2016, cholecystectomy, underwent bilateral iliac stents. Local cystoscopy on July 22, 2017, in office demonstrates: Radiation cystitis changes, incidental subtle wide caliber bulbar stricture, not warranting treatment. Scope was easily passed within the bladder with no evidence of bladder neck contracture. ALLERGIES: NO KNOWN DRUG ALLERGIES. REVIEW OF SYSTEMS: Ten-point review of systems as above, otherwise noncontributory. FAMILY HISTORY: Positive for coronary artery disease, diabetes, and colon cancer. PHYSICAL EXAMINATION: VITAL SIGNS: Stable. His hospital records reviewed. HEENT: Grossly unremarkable. HEART: Regular rate. LUNGS: Clear. ABDOMEN: Morbidly obese, protuberant. No rigidity. No rebound. GENITOURINARY: Demonstrates uncircumcised phallus. Meatus is grossly unremarkable. Testes descended. EXTREMITIES: No cyanosis, clubbing, or edema. NEUROLOGIC: No gross focal deficits. SKIN: No gross lesions or rashes appreciated. Bedside procedure, as Cardiovascular surgery is requesting temperature probe for catheter, 16-Portuguese catheter passed to the level of the bladder. There was mild resistance at the level of the bladder neck. However, I was able to pass it without significant issues. Clear yellow urine output is obtained, balloon inflated and catheter secured. PERTINENT LABORATORY DATA: White count 8, hemoglobin 14, and platelet 204. Creatinine is 1.2. His last PSA of record is nondetectable. IMPRESSION AND PLAN: 1. Mr. Meyer is a 74-year-old male, well known to me with history of pathologic T3 N0 [place] sum 3 + 4, status post radical prostatectomy, bilateral pelvic lymph node dissection, status post adjuvant RT with PSA belinda cancer in remission. 2. Prior history of gross hematuria, workup demonstrating radiation cystitis changes. Current admission due to coronary artery disease, high risk, undergoing bypass surgery today. Andres catheter placed by without significant issues. He has a standing appointment with me, Andres catheter can be removed, when patient is ambulatory, out of bed. He is not in retention. May remove per Cardiovascular Surgery protocol. Job ID: [id number] [facility]
[2019-09-11] MEDS ORDERED: Acetaminophen 325 MG TAB PO PRN (14:03)
[2019-09-11] MEDS ORDERED: niCARdipine 25 MG in Sodium Chloride 0.9% 250 ML 250 ML IVPB PRN (14:03)
[2019-09-11] MEDS ORDERED: Norepinephrine 8 MG/0.9% NS 250 ML IVPB PRN (14:03)
[2019-09-11] MEDS ORDERED: Bisacodyl 5 MG TAB PO PRN (14:03)
[2019-09-11] MEDS ORDERED: Hetastarch 6% 500 ML 500 ML IVPB PRN (14:03)
[2019-09-11] MEDS ORDERED: Nitroglycerin 50 MG/250 ML BOT 250 ML IVPB PRN (14:03)
[2019-09-11] MEDS ORDERED: hydrALAZINE 20 MG/ML VIAL SLOW IVP PRN (14:03)
[2019-09-11] MEDS ORDERED: Guaifenesin DM 100-10/5 ML UDCUP PO PRN (14:03)
[2019-09-11] MEDS ORDERED: Mag-Al 1200 mg/1200 mg/30 ML UDCUP PO PRN (14:03)
[2019-09-11] MEDS ORDERED: Promethazine HCl 25 MG/ML VIAL IM PRN (14:03)
[2019-09-11] MEDS ORDERED: HYDROcodone/Acetaminophen 5/325 mg Tablet PO PRN (14:03)
[2019-09-11] MEDS ORDERED: Post-Op Insulin Drip Protocol IVPB ONE (14:03)
[2019-09-11] MEDS ORDERED: Morphine 2 MG/ML SYRINGE SLOW IVP PRN (14:03)
[2019-09-11] MEDS ORDERED: Fentanyl 100 MCG/2 ML VIAL SLOW IVP PRN ×2 (14:03)
[2019-09-11] MEDS ORDERED: Potassium Chloride 20 MEQ/100 ML PREMIX BAG IVPB PRN (14:03)
[2019-09-11] MEDS ORDERED: Bisacodyl 10 MG SUPP PR PRN (14:03)
[2019-09-11] MEDS ORDERED: Dextrose 50% Abboject 50 ML SYRINGE SLOW IVP PRN (14:52)
[2019-09-11] MEDS ORDERED: Dextrose 5% in Water 1,000 ML IV PRN (14:52)
[2019-09-11] MEDS ORDERED: Insulin Regular 300 UNITS/3 ML VIAL SC PRN (14:52)
[2019-09-11] MEDS ORDERED: HUMULIN R 100 UNITS in Sodium Chloride 0.9% 100 ML IVPB SCH (14:52)
--- NOTE | 2019-09-11 14:53 | RAD ---
Exam: Chest one view HISTORY:Status post open heart surgery Comparison: 09/10/2019 FINDINGS: Cardiac silhouette:Enlarged cardiac silhouette due to portable technique. There are sternotomy wires Lines and tubes: Left-sided vascular catheter terminates in the expected region of the superior vena cava. Aorta: Unremarkable Pulmonary vessels: Normal Costophrenic angles: Clear LUNGS: Patchy interstitial opacities likely representing atelectasis. Pneumothorax: None Osseous abnormalities: None IMPRESSION: Findings compatible with recent open heart surgery.
[2019-09-11 14:54] LABS: INR-International Normal Ratio 1.2; PTT 29.3 sec (22.9-36.1); Prothrombin Time 15.6 sec (12.0-14.7)
[2019-09-11 15:07] LABS: Anion Gap 14 mmol/L (10-20); BUN (Urea Nitrogen) 22 mg/dL (8.4-25.7); Calc. Creatinine Clearance 85 mL/min (70-130); Calcium 8.5 mg/dL (7.8-10.44); Carbon Dioxide 20 mmol/L (23-31); Chloride 105 mmol/L (98-107); Estimated GFR-MDRD 55; Glucose 155 mg/dL (83-110); Potassium 5.2 mmol/L (3.5-5.1); Sodium 134 mmol/L (136-145)
[2019-09-11 15:08] LABS: Actual Bicarbonate (HCO3a) 21.6 mEq/L (22-28); Base Excess (BEa) -5.3 mEq/L (-2.0 to +3.0); CO2 Tension 47.7 mmHg (35.0-45.0); Calcium, Ionized (arterial) 1.15 mmol/L (1.12-1.30); Carboxyhemoglobin (COHb) 0.1 gm% (0.0-3.0); Hemoglobin (Hb) 12.3 g/dL (14.0-18.0); O2 Tension (PaO2), arterial 86.3 mmHg (> 70.0); Potassium - ABG Lab 4.29 mmol/L (3.70-5.30); pH, Arterial 7.27 (7.35-7.45)
[2019-09-11 15:09] LABS: ALV-art Gradient 82.235 (0-20); Puncture Site ALINE
[2019-09-11] MEDS: Sodium Chloride 0.9% 1,000 ML IV SCH (15:09)
[2019-09-11 15:22] LABS: Band 45 % (5-11); Hemoglobin 13.6 g/dL (14.0-18.0); Lymphocytes 1 % (21-51); MDiff Complete? YES; Mean Corpuscular HGB CONC 35.2 g/dL (32.0-36.0); Mean Corpuscular Hemoglobin 33.2 pg (27.0-31.0); Mean Corpuscular Volume 94.4 fL (78.0-98.0); Mean Platelet Volume 9.1 fL (7.4-10.4); Monocytes 2 % (0-10); Neutrophil 51 % (42-75); Platelet Count 162 thou/uL (130-400); Platelet Morphology Comment Appears Adequate; RBC Distribution Width 13.3 % (11.5-14.5); RBC Morphology Normal; Reactive Lymphocytes 1 % (0-10); Red Blood Cell (RBC) Count 4.08 mill/uL (4.70-6.10); Reflex for Review?? NO; White Blood Cell (WBC) Count 23.6 thou/uL (4.8-10.8)
[2019-09-11] MEDS: Ondansetron PF 4 MG/2 ML Vial IVP PRN ×2 (16:13→21:19)
--- NOTE | 2019-09-11 17:00 | PRG ---
DATE OF SERVICE: 09/11/2019 SUBJECTIVE: The patient was seen at the request of Dr. Granado. He underwent an emergent cardiac bypass for refractory angina. He has moderate COPD by recent PFTs. He also has sleep apnea for which he is using a family member's CPAP machine. I saw him postop in the ICU. He is currently resting comfortably on his CPAP without any issues. OBJECTIVE: VITAL SIGNS: Temperature is 97, pulse 85, respirations 18. HEENT: Unremarkable. NECK: No JVD. LUNGS: Clear with O2 saturation 98%. ABDOMEN: Soft. EXTREMITIES: No edema. ASSESSMENT: 1. Stable chronic obstructive pulmonary disease. 2. Postop from coronary artery bypass graft. 3. Obstructive sleep apnea -I have increased the CPAP pressure from 12 to 14 because of some witnessed apneic events. PLAN: As above. We will follow. Job ID: [id number]
--- NOTE | 2019-09-11 17:55 | PDOC.HOSPP ---
- Subjective Encounter Date: 09/11/19 Encounter Time: 17:53 Subjective: Mr. Meyer was seen today in follow-up of CAD and s/p CABG. He is currently on CPAP, with his home settings. No complaints. - Objective Vital Signs & Weight: Vital Signs (12 hours) Temp Pulse Resp BP Pulse Ox 09/11/19 15:00 97 09/11/19 14:56 96 09/11/19 08:00 96.0 F L 67 18 132/81 95 Weight Weight 253 lb Most Recent Monitor Data Heart Rate from ECG 78 NIBP 89/57 NIBP BP-Mean 67 Respiration from ECG 23 SpO2 95 I&O: 09/10/19 09/11/19 09/12/19 06:59 06:59 06:59 Intake Total 1267 Output Total 300 Balance 967 Result Diagrams: 09/11/19 14:33 09/11/19 14:33 Hospitalist ROS - Medication Medications: Active Medications Generic Name Dose Route Start Last Admin Trade Name Freq PRN Reason Stop Dose Admin Albumin Human 25 gm 09/11/19 14:03 09/11/19 14:40 Albumin 5% IVPB 09/12/19 14:04 25 gm Q6H PRN Administration To Maintain SBP > 90 mmHG Hetastarch/Sodium Chloride 500 mls @ 0 mls/hr 09/11/19 14:03 09/11/19 16:16 Hespan IVPB 09/12/19 09:47 500 mls PRN PRN Administration To Maintain SBP > 90mmHg As Directed Sodium Chloride 1,000 mls @ 100 mls/hr 09/11/19 14:03 09/11/19 15:09 Normal Saline 0.9% IV 1,000 mls .Q10H NIKA Administration Insulin Human Regular 100 101 mls @ 0 mls/hr 09/11/19 14:52 09/11/19 15:09 units/ Sodium Chloride IVPB 101 mls INF NIKA Administration Protocol As Directed Ondansetron HCl 4 mg 09/11/19 14:03 09/11/19 16:13 Zofran IVP 4 mg Q6H PRN Administration Nausea/Vomiting - Exam Eye: PERRL, anicteric sclera Heart: RRR, no murmur, no gallops, no rubs, normal peripheral pulses Respiratory: CTAB, no wheezes Gastrointestinal: soft, non-tender, non-distended, normal bowel sounds, no palpable masses, no hepatomegaly Extremities: 1+ LE edema Hosp A/P (1) Malignant neoplasm of prostate Code(s): C61 - MALIGNANT NEOPLASM OF PROSTATE Status: Acute (2) CAD (coronary artery disease) Code(s): I25.10 - ATHSCL HEART DISEASE OF [place] CORONARY ARTERY W/O ANG PCTRS Status: Chronic (3) Dyslipidemia Code(s): E78.5 - HYPERLIPIDEMIA, UNSPECIFIED Status: Chronic (4) HTN (hypertension) Code(s): I10 - ESSENTIAL (PRIMARY) HYPERTENSION Status: Chronic - Plan * Mr. Meyer is post CABG and hemodynamically stable * Continue management as per Cardiology and CV- surgery
--- NOTE | 2019-09-11 20:01 | OP ---
DATE OF PROCEDURE: 09/11/2019 PROCEDURE PERFORMED: Coronary artery bypass grafting x3 with left internal mammary artery to the distal LAD and reverse greater saphenous vein grafts from the aorta to the second obtuse marginal and from the aorta to the PDA. PREOPERATIVE DIAGNOSIS: Left main coronary artery disease. POSTOPERATIVE DIAGNOSIS: Left main coronary artery disease. NETWORK SUPPORT: Dr. Julius Zheng. ANESTHESIA: General endotracheal anesthesia. INDICATIONS: The patient is a 74-year-old man, with about a 2-year history of fairly debilitating shortness of breath even with dyspnea on talking, far out of proportion to what previous spirometry or current radiographs would lead one to suspect. Cardiac evaluation demonstrated about a 50% distal left main lesion extending into the origin of the circumflex. A very high-grade cleft like lesion at the ostium of the LAD and an occluded right coronary. Plans were underway for elective admission, but the patient presented with resting angina on 2 subsequent days. He is now taken to the operating room for surgical revascularization. FINDINGS: Pump time 81 minute. Cross-clamp time 54 minutes (proximal vein graft anastomosis done under cross-clamp). Good quality GUY and saphenous vein. The LAD was about 2 mm, good quality vessel. The OM was about 2 or 2.5 mm, very thin walled vessel. Probing it confirmed that it communicated with a small branch distally that had visible plaque in it. The right coronary system had extensive rock hard plaque, where grafted. The PDA had plaque proximally, but it was reasonably good quality distally and was about 1.5 mm vessel. There was plaque along the posterior aspect of the aorta prompting construction of the vein graft proximal anastomoses under cross-clamp. DESCRIPTION OF PROCEDURE: After informed consent was obtained, the patient was taken to the operating room and placed in supine position on the operating table. After the induction of general anesthesia, the patient's left upper chest was prepped and draped in sterile fashion. A triple-lumen central line kit was used to place a left subclavian central line by the Seldinger technique. All 3 ports easily aspirated and flushed. The line was secured. The patient's left greater saphenous vein was ultrasonographically mapped and marked. The patient's torso, groins, and lower extremities were prepped and draped in sterile fashion. The greater saphenous vein was exposed through a small incision just above the left knee. Using that as a port site, the vein was endoscopically harvested up to the groin, using a stab incision for the proximal ligation and division point, the vein was ligated and divided distally through the port incision. The vein was prepared for use as a graft and the port site was closed in layers of subcutaneous and subcuticular Vicryl. A median sternotomy was performed. The pericardium was opened and marsupialized, and the aorta was palpated. The majority of the aorta was soft, but along the posterior aspect, a discontinuous ridge of hard plaque could be appreciated, primarily directly posteriorly but somewhat angling towards the right posterolateral aspect. The left internal mammary artery was then mobilized as a skeletonized in-situ graft from the level of the xiphoid to the level of the subclavian vein through an extrapleural exposure. The patient was heparinized. The mammary was ligated and divided distally. There was good flow through the mammary. Papaverine solution was instilled intraluminally. The mammary bed was inspected for hemostasis. The GUY retractor was placed with a De La Paz retractor. The pericardium was marsupialized and the aorta was re-examined. The aorta just beyond the pericardial reflection was soft anteriorly, although there was plaque palpable at the base of the innominate artery. A double concentric pursestring of 2-0 Ethibond was placed in ascending aorta just beyond the pericardial reflection and a single pursestring was placed in the right atrial appendage. Aortic and venous cannulae were inserted and secured by their pursestrings. The plane between the aorta and the pulmonary artery was developed. Cardiopulmonary bypass was instituted and the patient was systemically cooled. The medial reflections of the left pleura were mobilized. A longitudinal slit was made in the pericardium anterior to the left phrenic nerve, through which the mammary could be passed. The heart was examined. The vessels to be bypassed were identified and the vein was examined with antegrade flows on the bypass pump dramatically reduced. The aorta was re-examined palpably and an aortic cross-clamp was positioned to avoid placing it across a plaque or deforming plaque. Cardioplegia was administered through an aortic root needle and arrest has been achieved, attention was turned to the circumflex system. The OM was exposed and opened. It was a thin enough vessel that it resembled a vein when opened. Probing it proximally, it was very difficult to ascertain whether communicated with the coronary sinus, although no conclusive evidence of it was identified. On probing distally, it communicated with small branch that had visible plaque in it. Saphenous vein was reversed and anastomosed there end-to-side with running Prolene suture and the anastomosis tested by flushing cold cardioplegia down the graft. Attention was then turned to the PDA. It was exposed and opened, where it emerged from the fat pad at the AV groove where the vessel became a better quality vessel. Saphenous vein was anastomosed there end-to-side in a similar fashion. The LAD was then opened distally and the mammary anastomosed to it with running 7-0 Prolene. The mammary was tacked to the epicardium. An aortotomy was made in the ascending aorta with a scalpel and punch. The PDA graft was brought along the right side of the heart and anastomosed to that aortotomy end-to-side with running Prolene. A second aortotomy was made just distal and somewhat to the left of that and the OM graft was anastomosed to it. The patient was placed in Trendelenburg and the root needle placed back on suction. The aortic cross- clamp was removed. The vein grafts were de-aired and the anastomoses inspected for hemostasis. The proximal anastomoses were marked with small hemoclips. The posterior pericardial drain was brought out through a separate incision and secured with suture. Right atrial and right ventricular temporary epicardial pacing wires were placed and the patient was adequately rewarmed and visible contractility was adequate. The patient was then easily from cardiopulmonary bypass. Aortic and venous cannulae were removed and the pursestring secured. Protamine was administered. When hemostasis was adequate, an anterior mediastinal drain was placed. The mediastinal fat was tacked back together over the aorta and the proximal portions of the vein grafts and the inferior medial aspect of the pericardium were loosely tacked back to each other to effect a very loose pericardial closure. The cut surfaces of the sternum were treated with platelet rich GPS and vancomycin paste and then reapproximated with #7 stainless steel wires. The soft tissues were irrigated and treated with platelet poor GPS. The fascia was closed over the wires with #1 Vicryl. The subcutaneous tissue was reapproximated with 2-0 Vicryl, and the skin was closed with a 3-0 Vicryl subcuticular suture. The wounds were dressed. The patient was awakened and extubated in the operating room and taken to the intensive care unit, moving all four extremities to command. Job ID: [id number] [facility]
[2019-09-11 20:39] LABS: Hemoglobin 11.3 g/dL (14.0-18.0)
[2019-09-11 20:51] LABS: Potassium 4.4 mmol/L (3.5-5.1)
[2019-09-11] MEDS: Docusate 100 MG CAP PO SCH (21:18)
[2019-09-11] MEDS: Rosuvastatin 20 MG TAB PO SCH (21:18)
[2019-09-11] MEDS: Famotidine/PF 20 mg/2ml Vial SLOW IVP SCH (21:19)
[2019-09-11] MEDS: HYDROcodone/Acetaminophen 5/325 mg Tablet PO PRN (21:19)
[2019-09-12] MEDS: Sodium Chloride 0.9% 1,000 ML IV SCH ×3 (00:24→20:42)
[2019-09-12 04:06] LABS: #Lymphocytes 0.6 thou/uL (1.20-3.40); #Monocytes 1.3 thou/uL (0.11-0.59); #Neutrophils 14.6 thou/uL (1.40-6.50); %Eosinophils 0.1 % (0.0-10.0); %Lymphocytes 3.7 % (21.0-51.0); %Neutrophils 88.1 % (42.0-75.0); Hemoglobin 10.4 g/dL (14.0-18.0); Mean Corpuscular HGB CONC 33.8 g/dL (32.0-36.0); Mean Corpuscular Volume 94.8 fL (78.0-98.0); Mean Platelet Volume 9.1 fL (7.4-10.4); Platelet Count 210 thou/uL (130-400); RBC Distribution Width 13.4 % (11.5-14.5); Red Blood Cell (RBC) Count 3.26 mill/uL (4.70-6.10); White Blood Cell (WBC) Count 16.6 thou/uL (4.8-10.8)
[2019-09-12 04:12] LABS: Anion Gap 11 mmol/L (10-20); BUN (Urea Nitrogen) 30 mg/dL (8.4-25.7); Calc. Creatinine Clearance 74 mL/min (70-130); Calcium 7.7 mg/dL (7.8-10.44); Carbon Dioxide 21 mmol/L (23-31); Chloride 109 mmol/L (98-107); Estimated GFR-MDRD 47; Glucose 142 mg/dL (83-110); Potassium 4.1 mmol/L (3.5-5.1); Sodium 137 mmol/L (136-145)
[2019-09-12] MEDS: HYDROcodone/Acetaminophen 5/325 mg Tablet PO PRN ×4 (05:17→22:29)
--- NOTE | 2019-09-12 07:30 | PDOC.CPN ---
- Subjective Date: 09/12/19 Time: 17:10 Interval history: Doing well post CABG seen up in chair - Objective Allergies/Adverse Reactions: Allergies Allergy/AdvReac Type Severity Reaction Status Date / Time No Known Allergies Allergy Verified 09/10/19 15:52 Visit Medications: Current Medications Acetaminophen (Tylenol) 650 mg PO Q6H PRN PRN Reason: Headache/Fever Or Mild Pain Hydrocodone Bitart/Acetaminophen ([place] 5/325) 1 tab PO Q4H PRN PRN Reason: Moderate Pain (4-6) Hydrocodone Bitart/Acetaminophen ([place] 5/325) 2 tab PO Q4H PRN PRN Reason: Severe Pain (7-10) Last Admin: 09/12/19 05:17 Dose: 2 tab Al Hydroxide/Mg Hydroxide (Maalox) 30 ml PO Q4H PRN PRN Reason: Indigestion Albumin Human (Albumin 5%) 12.5 gm IVPB Q6H PRN PRN Reason: To Maintain SBP> 90 mmHG Stop: 09/12/19 14:04 Last Admin: 09/12/19 00:17 Dose: 12.5 gm Albumin Human (Albumin 5%) 25 gm IVPB Q6H PRN PRN Reason: To Maintain SBP > 90 mmHG Stop: 09/12/19 14:04 Last Admin: 09/11/19 14:40 Dose: 25 gm Albuterol/Ipratropium (Duoneb) 3 ml NEB [id number] NIKA Aspirin (Aspirin Chewable) 81 mg PO DAILY NIKA Bisacodyl (Dulcolax) 10 mg PO Q12H PRN PRN Reason: Constipation Bisacodyl (Dulcolax) 10 mg VA Q12H PRN PRN Reason: Constipation Dextrose/Water (Dextrose 50%) 25 gm SLOW IVP PRN PRN PRN Reason: PER HYPOGLYCEMIC PROTOCOL Docusate Sodium (Colace) 100 mg PO BID [facility] Last Admin: 09/11/19 21:18 Dose: 100 mg Ezetimibe (Zetia) 10 mg PO DAILY NIKA Famotidine (Pepcid) 20 mg SLOW IVP Q12HR NIKA Last Admin: 09/11/19 21:19 Dose: 20 mg Fentanyl (Sublimaze) 25 mcg SLOW IVP Q2H PRN PRN Reason: Moderate Pain (4-6) Stop: 09/13/19 09:47 Fentanyl (Sublimaze) 50 mcg SLOW IVP Q2H PRN PRN Reason: Severe Pain (7-10) Stop: 09/13/19 09:47 Glucagon (Glucagon) 1 mg SC PRN PRN PRN Reason: PER HYPOGLYCEMIC PROTOCOL Guaifenesin/Dextromethorphan (Robitussin Dm) 15 ml PO Q4H PRN PRN Reason: Cough Hydralazine HCl (Apresoline) 10 mg SLOW IVP Q6H PRN PRN Reason: To Maintain SBP< 140mmHG Hetastarch/Sodium Chloride (Hespan) 500 mls @ 0 mls/hr IVPB PRN PRN PRN Reason: To Maintain SBP > 90mmHg Stop: 09/12/19 09:47 Last Admin: 09/11/19 16:16 Dose: 500 mls Norepinephrine Bitartrate (Levophed) 250 mls @ 0 mls/hr IVPB PRN PRN; Protocol PRN Reason: To maintain SBP > 90 mmHG Nicardipine HCl 25 mg/ Sodium (Chloride) 260 mls @ 0 mls/hr IVPB INF PRN; Protocol PRN Reason: To Maintain SBP< 140mmHG Nitroglycerin/Dextrose (Nitroglycerin 50 Mg/250 Ml Bot) 250 mls @ 0 mls/hr IVPB PRN PRN; Protocol PRN Reason: To Maintain SBP< 140mmHG Sodium Chloride (Normal Saline 0.9%) 1,000 mls @ 100 mls/hr IV .Q10H NIKA Last Admin: 09/12/19 00:24 Dose: 1,000 mls Insulin Human Regular 100 (units/ Sodium Chloride) 101 mls @ 0 mls/hr IVPB INF NIKA; Protocol Last Admin: 09/11/19 15:09 Dose: 101 mls Dextrose/Water (D5w) 1,000 mls @ 0 mls/hr IV INF PRN PRN Reason: PRN HYPOGLYCEMIC PROTOCOL Insulin Human Regular (Humulin R) 0 units SC Q4H PRN; Protocol PRN Reason: POST OP SLIDING SCALE Mometasone Furoate/Formoterol Fumar (Dulera 200 Mcg/5 Mcg Inhaler) 2 puff INH BID-RT NIKA Morphine Sulfate (Morphine) 2 mg SLOW IVP Q15MIN PRN PRN Reason: Severe Pain (7-10) Ondansetron HCl (Zofran) 4 mg IVP Q6H PRN PRN Reason: Nausea/Vomiting Last Admin: 09/11/19 21:19 Dose: 4 mg Potassium Chloride (Kcl) 20 meq IVPB PRN PRN PRN Reason: K level </= 4.0 Promethazine HCl (Phenergan) 6.25 mg IM Q4H PRN PRN Reason: Nausea/Vomiting Rosuvastatin Calcium (Crestor) 40 mg PO HS NIKA Last Admin: 09/11/19 21:18 Dose: 40 mg Sodium Chloride (Flush - Normal Saline) 10 ml IVF Q12HR NIKA Last Admin: 09/11/19 21:19 Dose: 10 ml Vital Signs & Weight: Vital Signs Temp Pulse Ox 09/12/19 04:00 98.1 F 09/12/19 00:00 98.2 F 09/11/19 20:00 99 F 96 Weight 266 lb 12.149 oz - Physical Exam General: no apparent distress Neck: no masses, no bruit Cardiac: regular rate, regular rhythm Lungs: normal exam, no wheeze, rales, rhonchi, no wheezes Neuro: grossly intact - Labs Result Diagrams: 09/12/19 03:35 09/12/19 03:35 Troponin/CKMB Troponin I Less than 0.010 ng/mL (< 0.028) 09/10/19 17:11 - Assessment/Plan Assessment/Plan: A/P: Severe CAD Severe PVD REC 09/11 No changes BB, statin and ASA IS and PT
--- NOTE | 2019-09-12 07:30 | PDOC.HOSPP ---
- Subjective Encounter Date: 09/12/19 Encounter Time: 08:17 Subjective: Mr. Meyer is seen today for follow-up of angina s/p CABG yesterday. He reports some chest soreness around the incision site, but otherwise denies chest pain. He also reports some mild shortness of breath and cough, but states that this is his baseline due to his COPD. He has been able to get out of bed and sit in the chair, and he has plans to walk throughout the day. He has been instructed by the nurses to use his incentive spirometry, which he is doing 10 times about every hour or so. No other complaints currently. - Objective Vital Signs & Weight: Vital Signs (12 hours) Temp Pulse Ox 09/12/19 04:00 98.1 F 09/12/19 00:00 98.2 F 09/11/19 20:00 99 F 96 Weight Weight 266 lb 12.149 oz Most Recent Monitor Data Heart Rate from ECG 78 NIBP 160/133 NIBP BP-Mean 142 Respiration from ECG 20 SpO2 97 I&O: 09/11/19 09/12/19 09/13/19 06:59 06:59 06:59 Intake Total 3181.2 Output Total 925 Balance 2256.2 Result Diagrams: 09/12/19 03:35 09/12/19 03:35 Hospitalist ROS - Medication Medications: Active Medications Generic Name Dose Route Start Last Admin Trade Name Freq PRN Reason Stop Dose Admin Hydrocodone Bitart/Acetaminophen 2 tab 09/11/19 14:03 09/12/19 05:17 [place] 5/325 PO 2 tab Q4H PRN Administration Severe Pain (7-10) Albumin Human 12.5 gm 09/11/19 14:03 09/12/19 00:17 Albumin 5% IVPB 09/12/19 14:04 12.5 gm Q6H PRN Administration To Maintain SBP> 90 mmHG Albumin Human 25 gm 09/11/19 14:03 09/11/19 14:40 Albumin 5% IVPB 09/12/19 14:04 25 gm Q6H PRN Administration To Maintain SBP > 90 mmHG Docusate Sodium 100 mg 09/11/19 21:00 09/11/19 21:18 Colace PO 100 mg BID NIKA Administration Famotidine 20 mg 09/11/19 21:00 07/06/20 21:19 Pepcid SLOW IVP 20 mg Q12HR NIKA Administration Hetastarch/Sodium Chloride 500 mls @ 0 mls/hr 09/11/19 14:03 09/11/19 16:16 Hespan IVPB 09/12/19 09:47 500 mls PRN PRN Administration To Maintain SBP > 90mmHg As Directed Sodium Chloride 1,000 mls @ 100 mls/hr 09/11/19 14:03 09/12/19 00:24 Normal Saline 0.9% IV 1,000 mls .Q10H NIKA Administration Insulin Human Regular 100 101 mls @ 0 mls/hr 09/11/19 14:52 09/11/19 15:09 units/ Sodium Chloride IVPB 101 mls INF NIKA Administration Protocol As Directed Ondansetron HCl 4 mg 09/11/19 14:03 09/11/19 21:19 Zofran IVP 4 mg Q6H PRN Administration Nausea/Vomiting Rosuvastatin Calcium 40 mg 09/11/19 21:00 09/11/19 21:18 Crestor PO 40 mg HS NIKA Administration Sodium Chloride 10 ml 09/11/19 21:00 09/11/19 21:19 Flush - Normal Saline IVF 10 ml Q12HR NIKA Administration - Exam General Appearance: NAD, awake alert Eye: PERRL, anicteric sclera ENT: normocephalic atraumatic Neck: supple, no carotid bruit Heart: RRR, no murmur, no gallops, no rubs Respiratory: CTAB Gastrointestinal: soft, non-tender, normal bowel sounds Extremities: no edema (Patient has wraps in place bilaterally.) Skin: normal turgor Neurological: no focal deficits Psychiatric: normal affect, normal behavior, A&O x 3 Hosp A/P (1) Malignant neoplasm of prostate Code(s): C61 - MALIGNANT NEOPLASM OF PROSTATE Status: Acute (2) CAD (coronary artery disease) Code(s): I25.10 - ATHSCL HEART DISEASE OF [place] CORONARY ARTERY W/O ANG PCTRS Status: Chronic (3) Dyslipidemia Code(s): E78.5 - HYPERLIPIDEMIA, UNSPECIFIED Status: Chronic (4) HTN (hypertension) Code(s): I10 - ESSENTIAL (PRIMARY) HYPERTENSION Status: Chronic - Plan * Mr. Meyer is post CABG and hemodynamically stable * Continue management as per Cardiology and CV- surgery * Prostate cancer- Patient reports that his urologist plans to remove his indwelling catheter in the near future. * * Patient seen and examined and discussed with Ms. Jorge MS-3, and i agree with her assessment. Mr. Meyer notes some soreness in his chest. He has some dyspnea, but this is about the same as always and he attributes this to COD. on exam he has some decreased breath sounds at bases. He also has trace pedal edema. He is hemodynamically stable. Will continue as per Cardiology and CV surgery recommendations. It is noted he has some hematuria- this may be due to phelps trauma- will observe.Urology is following as well.
--- NOTE | 2019-09-12 07:43 | PRG ---
DATE OF SERVICE: 09/12/2019 SUBJECTIVE: The patient is doing well postop, has no complaints. Remains on small dose of Levophed. He is up, sitting in chair this morning. OBJECTIVE: VITAL SIGNS: Temperature 98.1, pulse 78, blood pressure 99/44. Intake 3181, output 925. HEENT: Unremarkable. NECK: No JVD. CHEST: Clear. CARDIAC: S1 and S2. Regular. ABDOMEN: Soft. EXTREMITIES: No edema. LABORATORY DATA: White blood cell count 16, hematocrit 30, and platelet count 210. Sodium 137, potassium 4.1, chloride 109, CO2 of 21, BUN 30, creatinine 1.4, glucose 142. ASSESSMENT: 1. Obstructive sleep apnea-clinically stable. 2. Status post coronary artery bypass grafting surgery. 3. Underlying chronic obstructive pulmonary disease. PLAN: 1. Continue CPAP at a pressure of 12 at night. 2. Wean Levophed as tolerated. 3. Pulmonary toilet and nebulization treatments. Job ID: [id number]
--- NOTE | 2019-09-12 07:48 | RAD ---
Chest one view HISTORY: Chest surgery. Follow-up. COMPARISON: 09/11/2019. FINDINGS: Cardiac silhouette is magnified and enlarged. Pulmonary vasculature upper limits of normal. Slight leftward shift of the mediastinum with associated atelectasis at the left lung base that has i ncreased slightly since the prior study. Left subclavian central venous catheter and mediastinal drains remain in place. No evidence of pneumothorax. IMPRESSION : Interval progression of left lung base atelectasis. Otherwise stable postoperative appearance of the chest.
--- NOTE | 2019-09-12 07:50 | PRG ---
DATE OF SERVICE: 09/12/2019 SUBJECTIVE: The patient is alert, awake, sitting at bedside. Urine output 585. Andres catheter demonstrating concentrated yellow urine with minimal sediment. LABORATORY DATA: White count 16, hemoglobin 10, platelet 210. Creatinine 1.4. IMPRESSION AND PLAN: Mr. Meyer is a 74-year-old male, well known to me; 1. Postop day #1, status post coronary artery bypass grafting. 2. History of prostate cancer, status post radical prostatectomy, pelvic lymph node dissection. 3. Status post adjuvant radiation therapy. As a courtesy visit, I did place a Andres catheter preoperatively yesterday. It is draining uneventfully. He has no prior history of retention, nor significant incontinence. No Stress incontinence of concern, rare urge incontinence, which he desired observation. Andres catheter may be removed per CV surgery protocol. He has routine follow up with me. will sign off. Job ID: [id number] MTDD
[2019-09-12] MEDS: Aspirin Chewable 81 MG TAB PO SCH (09:27)
[2019-09-12] MEDS: Docusate 100 MG CAP PO SCH ×2 (09:27→20:35)
[2019-09-12] MEDS: Ezetimibe 10 MG TAB PO SCH (09:27)
[2019-09-12] MEDS: Famotidine/PF 20 mg/2ml Vial SLOW IVP SCH (09:28)
--- NOTE | 2019-09-12 15:54 | EKG ---
Test Reason : Blood Pressure : / mmHG Vent. Rate : 075 BPM Atrial Rate : 075 BPM P-R Int : 182 ms QRS Dur : 092 ms QT Int : 416 ms P-R-T Axes : 051 031 072 degrees QTc Int : 464 ms Normal sinus rhythm Normal ECG When compared with ECG of 10-SEP-2019 11:22, (Unconfirmed) No significant change was found Confirmed by JUSTUS HERR, SAnne-Marie ([id number]) on 09/12/2019 3:54:06 PM Referred By: CHRISTINA Confirmed By:DR. Stacey JEROME MD
[2019-09-12] MEDS: Mometasone 200 MCG/Formoterol 5 MCG 120 PUFF INHALER INH SCH (18:30)
[2019-09-12] MEDS: Rosuvastatin 20 MG TAB PO SCH (20:35)
[2019-09-13 03:42] LABS: #Lymphocytes 0.8 thou/uL (1.20-3.40); #Monocytes 1.2 thou/uL (0.11-0.59); #Neutrophils 10.6 thou/uL (1.40-6.50); %Basophils 0.2 % (0.0-1.0); %Eosinophils 0.2 % (0.0-10.0); %Lymphocytes 6.3 % (21.0-51.0); %Monocytes 9.5 % (0.0-10.0); %Neutrophils 83.9 % (42.0-75.0); Hemoglobin 9.5 g/dL (14.0-18.0); Mean Corpuscular HGB CONC 34.3 g/dL (32.0-36.0); Mean Corpuscular Hemoglobin 32.9 pg (27.0-31.0); Mean Platelet Volume 8.5 fL (7.4-10.4); Platelet Count 160 thou/uL (130-400); RBC Distribution Width 13.7 % (11.5-14.5); Red Blood Cell (RBC) Count 2.87 mill/uL (4.70-6.10); White Blood Cell (WBC) Count 12.6 thou/uL (4.8-10.8)
[2019-09-13 04:03] LABS: Anion Gap 9 mmol/L (10-20); BUN (Urea Nitrogen) 46 mg/dL (8.4-25.7); Calc. Creatinine Clearance 59 mL/min (70-130); Calcium 7.6 mg/dL (7.8-10.44); Carbon Dioxide 25 mmol/L (23-31); Chloride 104 mmol/L (98-107); Estimated GFR-MDRD 34; Glucose 139 mg/dL (83-110); Potassium 4.1 mmol/L (3.5-5.1); Sodium 134 mmol/L (136-145)
[2019-09-13] MEDS: Sodium Chloride 0.9% 1,000 ML IV SCH (06:06)
[2019-09-13] MEDS: HYDROcodone/Acetaminophen 5/325 mg Tablet PO PRN ×3 (06:07→19:02)
[2019-09-13] MEDS: Ezetimibe 10 MG TAB PO SCH (07:38)
[2019-09-13] MEDS: Docusate 100 MG CAP PO SCH ×2 (07:38→21:27)
[2019-09-13] MEDS: Aspirin Chewable 81 MG TAB PO SCH (07:38)
--- NOTE | 2019-09-13 07:55 | PRG ---
DATE OF SERVICE: 09/13/2019 SUBJECTIVE: The patient is doing well. He still has chest tube in place, sitting up in a chair. He is using a CPAP at night. OBJECTIVE: VITAL SIGNS: Temperature 98.9, pulse 91, blood pressure 102/65, O2 sat between 93% and 96% on room air. HEENT: Unremarkable. NECK: No JVD. CHEST: Clear without wheezing. CARDIAC: S1, S2 regular. ABDOMEN: Soft. EXTREMITIES: No edema. LABORATORY DATA: White count 12.6, hematocrit 27.6, and platelet count 160. Sodium 134, potassium 4.1, chloride 104, CO2 of 25, BUN 46, creatinine 1.9, and glucose 139. ASSESSMENT: 1. Status post coronary artery bypass grafting surgery. 2. Stable obstructive sleep apnea. 3. Stable chronic obstructive pulmonary disease. PLAN: 1. Continue nebulization treatments and Dulera. He can switch back to his usual medications once he is discharged. 2. Hopefully, he can be transferred to the floor later today if okay with Dr. Granado. Job ID: [id number]
[2019-09-13] MEDS: Mometasone 200 MCG/Formoterol 5 MCG 120 PUFF INHALER INH SCH ×2 (07:56→19:35)
--- NOTE | 2019-09-13 07:59 | PDOC.HOSPP ---
- Subjective Encounter Date: 09/13/19 Encounter Time: 09:05 Subjective: Mr. Meyer was seen today in follow-up of CAD and post CABG. He says he feels a bit tired this morning. He notes some soreness in both shoulders. - Objective Vital Signs & Weight: Vital Signs (12 hours) Temp Pulse Resp Pulse Ox 09/13/19 07:55 85 22 H 96 09/13/19 04:00 98.9 F 09/13/19 00:00 99.1 F 09/12/19 23:34 93 16 09/12/19 20:00 93 L Weight Weight 257 lb 0.944 oz Most Recent Monitor Data Heart Rate from ECG 91 NIBP 102/65 NIBP BP-Mean 77 Respiration from ECG 23 SpO2 93 I&O: 09/12/19 09/13/19 09/14/19 06:59 06:59 06:59 Intake Total 3181.2 1345.4 Output Total 925 1195 Balance 2256.2 150.4 Result Diagrams: 09/13/19 03:30 09/13/19 03:30 Additional Labs: Accuchecks 09/12/19 09/12/19 09/12/19 08:17 06:05 05:02 POC Glucose 136 H 131 H 133 H 09/12/19 09/12/19 09/12/19 02:18 01:09 00:12 POC Glucose 145 H 148 H 147 H 09/11/19 09/11/19 09/11/19 23:05 22:15 21:01 POC Glucose 152 H 155 H 143 H 09/11/19 09/11/19 09/11/19 20:08 19:15 18:02 POC Glucose 142 H 138 H 141 H 09/11/19 09/11/19 09/11/19 17:08 16:06 14:40 POC Glucose 145 H 152 H 164 H 09/11/19 09/11/19 09/11/19 14:08 13:08 12:46 POC Glucose 152 H 180 H 172 H 09/11/19 09/11/19 09/11/19 12:31 12:15 11:40 POC Glucose 155 H 137 H 128 H 09/11/19 10:36 POC Glucose 112 H Hospitalist ROS - Medication Medications: Active Medications Generic Name Dose Route Start Last Admin Trade Name Freq PRN Reason Stop Dose Admin Hydrocodone Bitart/Acetaminophen 2 tab 09/11/19 14:03 09/13/19 06:07 [place] 5/325 PO 2 tab Q4H PRN Administration Severe Pain (7-10) Albuterol/Ipratropium 3 ml 09/12/19 13:00 09/13/19 07:55 Duoneb NEB 3 ml [id number] NIKA Administration Aspirin 81 mg 09/12/19 09:00 09/13/19 07:38 Aspirin Chewable PO 81 mg DAILY NIKA Administration Docusate Sodium 100 mg 09/11/19 21:00 09/13/19 07:38 Colace PO 100 mg BID NIKA Administration Ezetimibe 10 mg 09/12/19 09:00 09/13/19 07:38 Zetia PO 10 mg DAILY NIKA Administration Sodium Chloride 1,000 mls @ 100 mls/hr 09/11/19 14:03 09/13/19 06:06 Normal Saline 0.9% IV Not Given .Q10H NIKA Insulin Human Regular 100 101 mls @ 0 mls/hr 09/11/19 14:52 09/11/19 15:09 units/ Sodium Chloride IVPB 101 mls INF NIKA Administration Protocol As Directed Mometasone Furoate/Formoterol Fumar 2 puff 09/12/19 18:30 09/13/19 07:56 Dulera 200 Mcg/5 Mcg Inhaler INH 2 puff BID-RT NIKA Administration Ondansetron HCl 4 mg 09/11/19 14:03 09/11/19 21:19 Zofran IVP 4 mg Q6H PRN Administration Nausea/Vomiting Pantoprazole Sodium 40 mg 09/13/19 09:00 09/13/19 07:38 Protonix PO 40 mg DAILY NIKA Administration Rosuvastatin Calcium 40 mg 09/11/19 21:00 09/12/19 20:35 Crestor PO 40 mg HS NIKA Administration Sodium Chloride 10 ml 09/11/19 21:00 09/13/19 07:39 Flush - Normal Saline IVF 10 ml Q12HR NIKA Administration - Exam Eye: PERRL, anicteric sclera Heart: RRR, no murmur, no gallops, no rubs, normal peripheral pulses Respiratory: CTAB (with coarse breath sounds and decreased breath sounds at the bases) Gastrointestinal: soft, distended Extremities: no cyanosis, 1+ LE edema Hosp A/P (1) CAD (coronary artery disease) Code(s): I25.10 - ATHSCL HEART DISEASE OF [place] CORONARY ARTERY W/O ANG PCTRS Status: Chronic (2) Acute kidney injury Code(s): N17.9 - ACUTE KIDNEY FAILURE, UNSPECIFIED Status: Acute (3) Malignant neoplasm of prostate Code(s): C61 - MALIGNANT NEOPLASM OF PROSTATE Status: Acute (4) Dyslipidemia Code(s): E78.5 - HYPERLIPIDEMIA, UNSPECIFIED Status: Chronic (5) HTN (hypertension) Code(s): I10 - ESSENTIAL (PRIMARY) HYPERTENSION Status: Chronic (6) Status post coronary artery bypass graft Code(s): Z95.1 - PRESENCE OF AORTOCORONARY BYPASS GRAFT Status: Acute (7) COPD (chronic obstructive pulmonary disease) Status: Chronic - Plan * Mr. Meyer is post CABG and hemodynamically stable * Continue management as per Cardiology and CV- surgery * RONALD- this may be due to hypoperfusion- he had a few episodes of hypotension- will monitor. If the trend continues will consult nephrology * Prostate cancer-Andres catheter has been removed * COPD- continue as per PCCM- overall stable
--- NOTE | 2019-09-13 08:26 | RAD ---
EXAM: CHEST ONE VIEW HISTORY: Post open heart surgery. COMPARISON: 09/12/2019 FINDINGS: Postoperative changes related to CABG are again noted. Left-sided vascular catheter and mediastinal d rains remain in place. Cardiac silhouette is enlarged. Minimal atelectasis is present at each lung base. Atelectasis at the left lung base does appear mildly improved. There has been no other interval change when compared to the prior study. IMPRESSION: Mild improvement in atelectasis left lung base. Chest is otherwise stable.
[2019-09-13] MEDS ORDERED: Guaifenesin DM 100-10/5 ML UDCUP PO PRN (08:32)
[2019-09-13] MEDS ORDERED: Nitroglycerin 0.4 MG TAB (25 Tab Bottle) SL PRN (08:32)
[2019-09-13] MEDS ORDERED: Zolpidem Tartrate 5 MG TAB PO PRN (08:32)
[2019-09-13] MEDS ORDERED: diphenhydrAMINE 25 MG CAP PO PRN (08:32)
[2019-09-13] MEDS ORDERED: Artificial Tears 18 DROP/0.9 ML EA EYE PRN (08:32)
[2019-09-13] MEDS ORDERED: Mag-Al 1200 mg/1200 mg/30 ML UDCUP PO PRN (08:32)
[2019-09-13] MEDS ORDERED: Bisacodyl 10 MG SUPP PR PRN (08:32)
[2019-09-13] MEDS ORDERED: Mineral Oil ENEMA PR PRN (08:32)
[2019-09-13] MEDS ORDERED: Bisacodyl 5 MG TAB PO PRN (08:32)
[2019-09-13] MEDS: Rosuvastatin 20 MG TAB PO SCH (21:27)
[2019-09-14 04:38] LABS: #Eosinphils 0.1 thou/uL (0.0-0.7); #Lymphocytes 0.7 thou/uL (1.20-3.40); #Neutrophils 8.4 thou/uL (1.40-6.50); %Basophils 0.1 % (0.0-1.0); %Eosinophils 0.8 % (0.0-10.0); %Monocytes 9.5 % (0.0-10.0); %Neutrophils 82.6 % (42.0-75.0); Hemoglobin 9.8 g/dL (14.0-18.0); Mean Corpuscular HGB CONC 34.2 g/dL (32.0-36.0); Mean Corpuscular Hemoglobin 32.5 pg (27.0-31.0); Mean Corpuscular Volume 94.9 fL (78.0-98.0); Mean Platelet Volume 8.7 fL (7.4-10.4); Platelet Count 170 thou/uL (130-400); RBC Distribution Width 13.6 % (11.5-14.5); Red Blood Cell (RBC) Count 3.01 mill/uL (4.70-6.10); White Blood Cell (WBC) Count 10.2 thou/uL (4.8-10.8)
[2019-09-14 05:22] LABS: Anion Gap 10 mmol/L (10-20); BUN (Urea Nitrogen) 49 mg/dL (8.4-25.7); Calc. Creatinine Clearance 73 mL/min (70-130); Calcium 7.6 mg/dL (7.8-10.44); Carbon Dioxide 22 mmol/L (23-31); Chloride 101 mmol/L (98-107); Estimated GFR-MDRD 46; Glucose 136 mg/dL (83-110); Potassium 4.3 mmol/L (3.5-5.1); Sodium 129 mmol/L (136-145)
[2019-09-14] MEDS: HYDROcodone/Acetaminophen 5/325 mg Tablet PO PRN ×3 (05:46→20:51)
[2019-09-14] MEDS: Mometasone 200 MCG/Formoterol 5 MCG 120 PUFF INHALER INH SCH ×2 (06:40→18:30)
--- NOTE | 2019-09-14 07:49 | RAD ---
Portable frontal chest radiograph: 09/14/2019 COMPARISON: 09/13/2019 HISTORY: Shortness of breath FINDINGS: Stable prominence of the cardiac silhouette, midline sternotomy wires, and left vascular ca theter. No pneumothorax or pleural fluid. No focal consolidation or alveolar edema. Mild hazy increased density noted within the medial left base which may signify volume loss. Midline drainage t ubes overlie the epigastric region/lower mediastinum. IMPRESSION: No significant interval change.
[2019-09-14] MEDS ORDERED: Furosemide 40 MG/4 ML VIAL ONE (07:58)
[2019-09-14] MEDS: Ezetimibe 10 MG TAB PO SCH (08:09)
[2019-09-14] MEDS: Docusate 100 MG CAP PO SCH ×2 (08:10→20:50)
[2019-09-14] MEDS: Aspirin Chewable 81 MG TAB PO SCH (08:11)
--- NOTE | 2019-09-14 09:03 | PRG ---
DATE OF SERVICE: 09/14/2019 SUBJECTIVE: Mr. Meyer was recently transferred from the ICU to telemetry monitoring. He did have increased shortness of breath today with low oxygenation. He was placed on O2 with improvement. Otherwise, no chest pain or pressure. OBJECTIVE: VITAL SIGNS: Blood pressure 104/62, pulse 91, and temperature 98.5. LUNGS: Minimal crackles noted bilaterally. HEART: Regular rate and rhythm. ABDOMEN: Soft, nontender, nondistended. EXTREMITIES: No edema. PERTINENT LABORATORY DATA: Hemoglobin 9.8. Creatinine 1.5 down from 1.9. IMPRESSION: 1. Coronary artery disease. 2. Status post bypass surgery . 3. Shortness of breath with hypoxia. RECOMMENDATIONS: Mr. Meyer does have underlying COPD. His weight is up from baseline of 253 to 260. He has had positive balance over the last 3 days. We will add 20 mg of Lasix IV and assess response. May need to repeat. His blood pressure is marginal at 104 systolic. Continue physical therapy. Incentive spirometry. Continue Crestor in addition to Zetia. We will add beta-margarita therapy in a.m. Job ID: [id number]
--- NOTE | 2019-09-14 09:53 | PRG ---
DATE OF SERVICE: 09/14/2019 SUBJECTIVE: The patient is doing relatively well. He gets short of breath with minimal exertion. He is requiring intermittent oxygen. He still has a chest tube in place. OBJECTIVE: HEENT: Unremarkable. NECK: No JVD. LUNGS: Clear. CARDIAC: S1 and S2 regular. ABDOMEN: Soft and obese. EXTREMITIES: No edema. ASSESSMENT: 1. Stable post coronary artery bypass graft. 2. Obstructive sleep apnea. 3. Chronic obstructive pulmonary disease. PLAN: Continue nebs and low-flow oxygen. Job ID: [id number]
[2019-09-14] MEDS ORDERED: Polyethylene Glycol 3350 17 GM Packet PO PRN (12:34)
--- NOTE | 2019-09-14 13:30 | PDOC.HOSPP ---
- Subjective Encounter Date: 09/14/19 Encounter Time: 12:00 Subjective: Mr Meyer is seen as a follow up for CAD and CABG. He states he is feeling really well today although slightly bloated. Some discomfort at chest tube sites but he states they are coming out today. He wants something to help him have a BM as it has been a few days. - Objective Vital Signs & Weight: Vital Signs (12 hours) Temp Pulse Pulse Pulse Resp BP BP 09/14/19 11:48 99.0 F 85 20 09/14/19 08:31 91 87 132/65 113/68 09/14/19 08:00 09/14/19 07:58 98.5 F 91 22 H 09/14/19 06:40 94 20 09/14/19 03:20 98.3 F 92 16 BP BP Pulse Ox Pulse Ox Pulse Ox 09/14/19 11:48 104/59 L 94 L 09/14/19 08:31 97 99 09/14/19 08:00 90 L 09/14/19 07:58 104/62 89 L 09/14/19 06:40 09/14/19 03:20 114/72 96 Weight Weight 260 lb 1.6 oz Most Recent Monitor Data Heart Rate from ECG 92 NIBP 100/63 NIBP BP-Mean 75 Respiration from ECG 20 SpO2 90 I&O: 09/13/19 09/14/19 09/15/19 06:59 06:59 06:59 Intake Total 1345.4 2460 Output Total 1195 1675 Balance 150.4 785 Result Diagrams: 09/14/19 04:13 09/14/19 04:13 EKG Reviewed by me: Yes (SR) Hospitalist ROS - Medication Medications: Active Medications Generic Name Dose Route Start Last Admin Trade Name Freq PRN Reason Stop Dose Admin Hydrocodone Bitart/Acetaminophen 2 tab 09/11/19 14:03 09/14/19 05:46 [place] 5/325 PO 2 tab Q4H PRN Administration Severe Pain (7-10) Albuterol/Ipratropium 3 ml 09/12/19 13:00 09/14/19 06:40 Duoneb NEB 3 ml [id number] NIKA Administration Aspirin 81 mg 09/12/19 09:00 09/14/19 08:11 Aspirin Chewable PO 81 mg DAILY NIKA Administration Docusate Sodium 100 mg 09/11/19 21:00 09/14/19 08:10 Colace PO 100 mg BID NIKA Administration Ezetimibe 10 mg 09/12/19 09:00 09/14/19 08:09 Zetia PO 10 mg DAILY NIKA Administration Mometasone Furoate/Formoterol Fumar 2 puff 09/12/19 18:30 09/14/19 06:40 Dulera 200 Mcg/5 Mcg Inhaler INH 2 puff BID-RT NIKA Administration Ondansetron HCl 4 mg 09/11/19 14:03 09/11/19 21:19 Zofran IVP 4 mg Q6H PRN Administration Nausea/Vomiting Pantoprazole Sodium 40 mg 09/13/19 09:00 09/14/19 08:11 Protonix PO 40 mg DAILY NIKA Administration Polyethylene Glycol 17 gm 09/14/19 12:34 09/14/19 12:40 Miralax PO 17 gm DAILYPRN PRN Administration Constipation Rosuvastatin Calcium 40 mg 09/11/19 21:00 09/13/19 21:27 Crestor PO 40 mg HS NIKA Administration Sodium Chloride 10 ml 09/11/19 21:00 09/14/19 08:12 Flush - Normal Saline IVF 10 ml Q12HR NIKA Administration - Exam General Appearance: NAD, awake alert Neck: supple, symmetric, no JVD Heart: RRR, no murmur, no gallops, no rubs Respiratory: CTAB, no wheezes, no rales, no ronchi Gastrointestinal: soft, non-tender, non-distended Hosp A/P (1) CAD (coronary artery disease) Code(s): I25.10 - ATHSCL HEART DISEASE OF [place] CORONARY ARTERY W/O ANG PCTRS Status: Chronic (2) Acute kidney injury Code(s): N17.9 - ACUTE KIDNEY FAILURE, UNSPECIFIED Status: Acute (3) Status post coronary artery bypass graft Code(s): Z95.1 - PRESENCE OF AORTOCORONARY BYPASS GRAFT Status: Acute (4) COPD (chronic obstructive pulmonary disease) Status: Chronic (5) Dyslipidemia Code(s): E78.5 - HYPERLIPIDEMIA, UNSPECIFIED Status: Chronic (6) HTN (hypertension) Code(s): I10 - ESSENTIAL (PRIMARY) HYPERTENSION Status: Chronic - Plan Seems to be hemodynamically stable s/p CABG. Miralax ordered per patient request, states he always needs it post surgery to help him not become constipated RONALD- improving, will continue to monitor COPD- stable at this time HTN- stable at this time Possible to have chest tubes removed today Would like to do outpatient rehab in [place] if available Continue to follow recommendations from cardiology, CV surgery and pulmonary
[2019-09-14] MEDS ORDERED: Furosemide 40 MG/4 ML VIAL SLOW IVP SCH (13:45)
[2019-09-14] MEDS: Rosuvastatin 20 MG TAB PO SCH (20:50)
[2019-09-15 04:15] LABS: #Lymphocytes 0.6 thou/uL (1.20-3.40); #Monocytes 1.3 thou/uL (0.11-0.59); #Neutrophils 10.8 thou/uL (1.40-6.50); %Eosinophils 0.3 % (0.0-10.0); %Lymphocytes 4.5 % (21.0-51.0); %Monocytes 10.3 % (0.0-10.0); %Neutrophils 84.9 % (42.0-75.0); Hemoglobin 9.9 g/dL (14.0-18.0); Mean Corpuscular HGB CONC 34.9 g/dL (32.0-36.0); Mean Corpuscular Volume 94.7 fL (78.0-98.0); Mean Platelet Volume 8.6 fL (7.4-10.4); Platelet Count 194 thou/uL (130-400); RBC Distribution Width 13.7 % (11.5-14.5); White Blood Cell (WBC) Count 12.7 thou/uL (4.8-10.8)
[2019-09-15 04:40] LABS: Anion Gap 11 mmol/L (10-20); BUN (Urea Nitrogen) 48 mg/dL (8.4-25.7); Calc. Creatinine Clearance 71 mL/min (70-130); Calcium 7.6 mg/dL (7.8-10.44); Carbon Dioxide 24 mmol/L (23-31); Chloride 100 mmol/L (98-107); Estimated GFR-MDRD 44; Glucose 131 mg/dL (83-110); Potassium 4.6 mmol/L (3.5-5.1); Sodium 130 mmol/L (136-145)
[2019-09-15] MEDS: Mometasone 200 MCG/Formoterol 5 MCG 120 PUFF INHALER INH SCH ×2 (07:30→19:06)
[2019-09-15] MEDS ORDERED: Furosemide 40 MG/4 ML VIAL SLOW IVP SCH (09:15)
[2019-09-15] MEDS ORDERED: guaiFENesin ER 600 MG TAB PO SCH (09:30)
[2019-09-15] MEDS: HYDROcodone/Acetaminophen 5/325 mg Tablet PO PRN ×2 (09:39→20:12)
[2019-09-15] MEDS: Ezetimibe 10 MG TAB PO SCH (09:39)
[2019-09-15] MEDS: Docusate 100 MG CAP PO SCH ×2 (09:39→20:11)
[2019-09-15] MEDS: Aspirin Chewable 81 MG TAB PO SCH (09:39)
--- NOTE | 2019-09-15 10:13 | RAD ---
Chest 2 views HISTORY: Dyspnea. COMPARISON: 09/14/2019. FINDINGS: Cardiac silhouette and pulmonary vasculature are unremarkable. Mediastinum is midline with postoperative changes and aortic calcification. Left subclavian central venous catheter remains in place. Now better demonstrated on the lateral view is a wedge-shaped posterior parenchymal opacity extending to the costophrenic angle favored to represent atelectasis that, on the frontal view, is not significantly changed. No evidence of pneumothorax. Oblique vertical density projecting over the right lateral chest may rep resent pleural thickening that is also unchanged. No evidence of pneumothorax. [employer] [place] [employer] [place] overlie the chest. IMPRESSION : Stable postoperative appearance of the chest with significant atelectasis at the left posterior lung base.
--- NOTE | 2019-09-15 13:36 | PRG ---
DATE OF SERVICE: 09/15/2019 SUBJECTIVE: Mr. Meyer is doing well. No current complaints. He states he was up ambulating today with assistance. OBJECTIVE: VITAL SIGNS: Blood pressure 100/86, pulse 99, temperature 97.9. LUNGS: Rhonchi and rales bilaterally. HEART: Regular rate and rhythm. ABDOMEN: Soft, nontender, nondistended. EXTREMITIES: No edema. PERTINENT LABORATORY DATA: Hemoglobin 9.9, white blood cell count 12.7. Creatinine 1.56, up from 1.50. IMPRESSION: 1. Severe coronary artery disease. 2. Status post bypass surgery. 3. Peripheral vascular disease. RECOMMENDATIONS: 1. Continue incentive spirometry and physical therapy. 2. The patient is currently on aspirin in addition to his Zetia and Crestor. 3. We will continue to follow him. Job ID: [id number]
--- NOTE | 2019-09-15 14:01 | PDOC.HOSPP ---
- Subjective Encounter Date: 09/15/19 Encounter Time: 09:45 Subjective: is sitting on bed, responds well to verbal stimuli had his chest tube removed yesterday - Objective Vital Signs & Weight: Vital Signs (12 hours) Temp Pulse Pulse Pulse Resp BP BP 09/15/19 13:25 99 16 09/15/19 12:45 97.9 F 99 12 100/86 09/15/19 09:25 108 H 99 129/73 09/15/19 08:05 09/15/19 08:00 98.3 F 99 14 109/54 L 09/15/19 07:21 95 18 09/15/19 03:50 99.9 F H 93 18 116/63 Pulse Ox Pulse Ox 09/15/19 13:25 09/15/19 12:45 97 09/15/19 09:25 96 09/15/19 08:05 100 09/15/19 08:00 100 09/15/19 07:21 09/15/19 03:50 93 L Weight Weight 260 lb Most Recent Monitor Data Heart Rate from ECG 92 NIBP 100/63 NIBP BP-Mean 75 Respiration from ECG 20 SpO2 90 I&O: 09/14/19 09/15/19 09/16/19 06:59 06:59 06:59 Intake Total 2460 1300 Output Total 1675 725 Balance 785 575 Result Diagrams: 09/15/19 04:05 09/15/19 04:05 Hospitalist ROS - Medication Medications: Active Medications Generic Name Dose Route Start Last Admin Trade Name Freq PRN Reason Stop Dose Admin Hydrocodone Bitart/Acetaminophen 2 tab 09/11/19 14:03 09/15/19 09:39 [place] 5/325 PO 2 tab Q4H PRN Administration Severe Pain (7-10) Albuterol/Ipratropium 3 ml 09/12/19 13:00 09/15/19 13:25 Duoneb NEB 3 ml [id number] NIKA Administration Aspirin 81 mg 09/12/19 09:00 09/15/19 09:39 Aspirin Chewable PO 81 mg DAILY NIKA Administration Docusate Sodium 100 mg 09/11/19 21:00 09/15/19 09:39 Colace PO 100 mg BID NIKA Administration Ezetimibe 10 mg 09/12/19 09:00 09/15/19 09:39 Zetia PO 10 mg DAILY NIKA Administration Furosemide 40 mg 09/15/19 09:15 09/15/19 09:46 Lasix SLOW IVP 09/15/19 14:00 40 mg NOW NIKA Administration Mometasone Furoate/Formoterol Fumar 2 puff 09/12/19 18:30 09/15/19 07:30 Dulera 200 Mcg/5 Mcg Inhaler INH 2 puff BID-RT NIKA Administration Ondansetron HCl 4 mg 09/11/19 14:03 09/11/19 21:19 Zofran IVP 4 mg Q6H PRN Administration Nausea/Vomiting Pantoprazole Sodium 40 mg 09/13/19 09:00 09/15/19 09:39 Protonix PO 40 mg DAILY NIKA Administration Polyethylene Glycol 17 gm 09/14/19 12:34 09/14/19 12:40 Miralax PO 17 gm DAILYPRN PRN Administration Constipation Rosuvastatin Calcium 40 mg 09/11/19 21:00 09/14/19 20:50 Crestor PO 40 mg HS NIKA Administration Sodium Chloride 10 ml 09/11/19 21:00 09/15/19 10:29 Flush - Normal Saline IVF 10 ml Q12HR NIKA Administration - Exam General Appearance: awake alert Eye: PERRL, anicteric sclera ENT: no oropharyngeal lesions, moist mucosa Neck: supple, no JVD Heart: RRR Respiratory: no wheezes, rhonchi Gastrointestinal: soft, non-tender, non-distended, normal bowel sounds Extremities: no cyanosis, 1+ LE edema Neurological: cranial nerve grossly intact, no focal deficits Psychiatric: normal affect, A&O x 3 Hosp A/P (1) Status post coronary artery bypass graft Code(s): Z95.1 - PRESENCE OF AORTOCORONARY BYPASS GRAFT Status: Acute (2) Acute kidney injury Code(s): N17.9 - ACUTE KIDNEY FAILURE, UNSPECIFIED Status: Acute (3) COPD (chronic obstructive pulmonary disease) Status: Chronic Qualifiers: COPD type: unspecified COPD Qualified Code(s): J44.9 - Chronic obstructive pulmonary disease, unspecified (4) Malignant neoplasm of prostate Code(s): C61 - MALIGNANT NEOPLASM OF PROSTATE Status: Chronic (5) CAD (coronary artery disease) Code(s): I25.10 - ATHSCL HEART DISEASE OF [place] CORONARY ARTERY W/O ANG PCTRS Status: Chronic Qualifiers: Coronary Disease-Associated Artery/Lesion type: bypass graft [place] vs. transplanted heart: [place] heart Associated angina: without angina Qualified Code(s): I25.810 - Atherosclerosis of coronary artery bypass graft(s) without angina pectoris (6) Dyslipidemia Code(s): E78.5 - HYPERLIPIDEMIA, UNSPECIFIED Status: Chronic (7) HTN (hypertension) Code(s): I10 - ESSENTIAL (PRIMARY) HYPERTENSION Status: Chronic Qualifiers: Hypertension type: essential hypertension Qualified Code(s): I10 - Essential (primary) hypertension (8) Obesity (BMI 30-39.9) Code(s): E66.9 - OBESITY, UNSPECIFIED Status: Chronic - Plan post op cabg he is recovering well has exertional sob, will work with cardiac rehab, i.spirometry had cabg x 3 vessel (galicia to lad, rsvg to 2nd obtuse danilo and pda) has underlying rosalio, needs to wear cpap at home renal function is holding up continue current meds as above
[2019-09-15] MEDS: Rosuvastatin 20 MG TAB PO SCH (20:11)
[2019-09-15] MEDS: guaiFENesin ER 600 MG TAB PO SCH (20:11)
[2019-09-16] MEDS: Mometasone 200 MCG/Formoterol 5 MCG 120 PUFF INHALER INH SCH ×2 (07:00→18:45)
[2019-09-16] MEDS: guaiFENesin ER 600 MG TAB PO SCH ×2 (09:04→21:20)
[2019-09-16] MEDS: Ezetimibe 10 MG TAB PO SCH (09:04)
[2019-09-16] MEDS: Aspirin Chewable 81 MG TAB PO SCH (09:05)
[2019-09-16] MEDS: Docusate 100 MG CAP PO SCH ×2 (09:06→21:20)
--- NOTE | 2019-09-16 12:16 | PDOC.HOSPP ---
- Subjective Encounter Date: 09/16/19 Encounter Time: 09:10 Subjective: is amb with cardiac rehab, has exertional sob feels overall better - Objective Vital Signs & Weight: Vital Signs (12 hours) Temp Pulse Pulse Pulse Resp BP BP 09/16/19 11:34 98.0 F 97 21 H 09/16/19 10:59 100 96 166/70 H 130/70 09/16/19 07:13 09/16/19 07:05 98.3 F 93 20 09/16/19 06:47 98 20 09/16/19 03:46 97.6 F 95 18 BP BP Pulse Ox Pulse Ox Pulse Ox 09/16/19 11:34 137/73 98 09/16/19 10:59 97 98 09/16/19 07:13 97 09/16/19 07:05 116/70 97 09/16/19 06:47 09/16/19 03:46 118/72 95 Weight Weight 260 lb 3.2 oz Most Recent Monitor Data Heart Rate from ECG 92 NIBP 100/63 NIBP BP-Mean 75 Respiration from ECG 20 SpO2 90 I&O: 09/15/19 09/16/19 09/17/19 06:59 06:59 06:59 Intake Total 1300 1040 Output Total 725 500 Balance 575 540 Result Diagrams: 09/15/19 04:05 09/15/19 04:05 Hospitalist ROS - Medication Medications: Active Medications Generic Name Dose Route Start Last Admin Trade Name Freq PRN Reason Stop Dose Admin Hydrocodone Bitart/Acetaminophen 2 tab 09/11/19 14:03 09/15/19 20:12 [place] 5/325 PO 2 tab Q4H PRN Administration Severe Pain (7-10) Albuterol/Ipratropium 3 ml 09/12/19 13:00 09/16/19 06:47 Duoneb NEB 3 ml [id number] NIKA Administration Aspirin 81 mg 09/12/19 09:00 09/16/19 09:05 Aspirin Chewable PO 81 mg DAILY NIKA Administration Docusate Sodium 100 mg 09/11/19 21:00 09/16/19 09:06 Colace PO 100 mg BID NIKA Administration Ezetimibe 10 mg 09/12/19 09:00 09/16/19 09:04 Zetia PO 10 mg DAILY NIKA Administration Guaifenesin 1,200 mg 09/15/19 21:00 09/16/19 09:04 Mucinex PO 1,200 mg Q12HR NIKA Administration Mometasone Furoate/Formoterol Fumar 2 puff 09/12/19 18:30 09/16/19 07:00 Dulera 200 Mcg/5 Mcg Inhaler INH 2 puff BID-RT NIKA Administration Ondansetron HCl 4 mg 09/11/19 14:03 09/11/19 21:19 Zofran IVP 4 mg Q6H PRN Administration Nausea/Vomiting Pantoprazole Sodium 40 mg 09/13/19 09:00 09/16/19 09:05 Protonix PO 40 mg DAILY NIKA Administration Polyethylene Glycol 17 gm 09/14/19 12:34 09/14/19 12:40 Miralax PO 17 gm DAILYPRN PRN Administration Constipation Rosuvastatin Calcium 40 mg 09/11/19 21:00 09/15/19 20:11 Crestor PO 40 mg HS NIKA Administration Sodium Chloride 10 ml 09/11/19 21:00 09/16/19 09:06 Flush - Normal Saline IVF 10 ml Q12HR NIKA Administration - Exam General Appearance: awake alert Eye: PERRL, anicteric sclera ENT: no oropharyngeal lesions, moist mucosa Neck: supple, no JVD Heart: RRR, no murmur Respiratory: no wheezes, no rales, rhonchi Gastrointestinal: soft, non-tender, non-distended, normal bowel sounds Extremities: no cyanosis, 1+ LE edema Skin: normal turgor Neurological: cranial nerve grossly intact, no focal deficits Hosp A/P (1) Status post coronary artery bypass graft Code(s): Z95.1 - PRESENCE OF AORTOCORONARY BYPASS GRAFT Status: Acute (2) Acute kidney injury Code(s): N17.9 - ACUTE KIDNEY FAILURE, UNSPECIFIED Status: Acute (3) COPD (chronic obstructive pulmonary disease) Status: Chronic Qualifiers: COPD type: unspecified COPD Qualified Code(s): J44.9 - Chronic obstructive pulmonary disease, unspecified (4) Malignant neoplasm of prostate Code(s): C61 - MALIGNANT NEOPLASM OF PROSTATE Status: Chronic (5) CAD (coronary artery disease) Code(s): I25.10 - ATHSCL HEART DISEASE OF [place] CORONARY ARTERY W/O ANG PCTRS Status: Chronic Qualifiers: Coronary Disease-Associated Artery/Lesion type: bypass graft [place] vs. transplanted heart: [place] heart Associated angina: without angina Qualified Code(s): I25.810 - Atherosclerosis of coronary artery bypass graft(s) without angina pectoris (6) Dyslipidemia Code(s): E78.5 - HYPERLIPIDEMIA, UNSPECIFIED Status: Chronic (7) HTN (hypertension) Code(s): I10 - ESSENTIAL (PRIMARY) HYPERTENSION Status: Chronic Qualifiers: Hypertension type: essential hypertension Qualified Code(s): I10 - Essential (primary) hypertension (8) Obesity (BMI 30-39.9) Code(s): E66.9 - OBESITY, UNSPECIFIED Status: Chronic - Plan post op cabg he is recovering well, has amb nearly 200ft today has exertional sob, i.spirometry had cabg x 3 vessel (galicia to lad, rsvg to 2nd obtuse danilo and pda) has underlying rosalio, needs to wear cpap at home renal function is holding up continue current meds as above dc plan per CTS adv
--- NOTE | 2019-09-16 13:11 | PDOC.CPN ---
- Subjective Date: 09/16/19 Time: 13:19 Interval history: The pt seen and examined. No overnight events. No cardiac complaints. - Objective Allergies/Adverse Reactions: Allergies Allergy/AdvReac Type Severity Reaction Status Date / Time No Known Allergies Allergy Verified 09/10/19 15:52 Visit Medications: Current Medications Hydrocodone Bitart/Acetaminophen ([place] 5/325) 1 tab PO Q4H PRN PRN Reason: Moderate Pain (4-6) Hydrocodone Bitart/Acetaminophen ([place] 5/325) 2 tab PO Q4H PRN PRN Reason: Severe Pain (7-10) Last Admin: 09/15/19 20:12 Dose: 2 tab Al Hydroxide/Mg Hydroxide (Maalox) 30 ml PO Q4H PRN PRN Reason: Indigestion Albuterol/Ipratropium (Duoneb) 3 ml NEB [id number] [facility] Last Admin: 09/16/19 06:47 Dose: 3 ml Artificial Tears (Tears Naturale) 0 drop EA EYE PRN PRN PRN Reason: Dry Eyes Aspirin (Aspirin Chewable) 81 mg PO DAILY [facility] Last Admin: 09/16/19 09:05 Dose: 81 mg Bisacodyl (Dulcolax) 10 mg PO Q12H PRN PRN Reason: Constipation Bisacodyl (Dulcolax) 10 mg [place] Q12H PRN PRN Reason: Constipation Diphenhydramine HCl (Benadryl) 25 mg PO Q6H PRN PRN Reason: Itching & Insomnia or Alin Dami Docusate Sodium (Colace) 100 mg PO BID [facility] Last Admin: 09/16/19 09:06 Dose: 100 mg Ezetimibe (Zetia) 10 mg PO DAILY [facility] Last Admin: 09/16/19 09:04 Dose: 10 mg Guaifenesin (Mucinex) 1,200 mg PO Q12HR [facility] Last Admin: 09/16/19 09:04 Dose: 1,200 mg Guaifenesin/Dextromethorphan (Robitussin Dm) 15 ml PO Q4H PRN PRN Reason: Cough Mineral Oil (Fleet Mineral Oil) 133 ml [place] DAILYPRN PRN PRN Reason: Constipation Mometasone Furoate/Formoterol Fumar (Dulera 200 Mcg/5 Mcg Inhaler) 2 puff INH BID-RT [facility] Last Admin: 09/16/19 07:00 Dose: 2 puff Nitroglycerin (Nitrostat) 0.4 mg SL Q5MIN PRN PRN Reason: Chest Pain Ondansetron HCl (Zofran) 4 mg IVP Q6H PRN PRN Reason: Nausea/Vomiting Last Admin: 09/11/19 21:19 Dose: 4 mg Pantoprazole Sodium (Protonix) 40 mg PO DAILY [facility] Last Admin: 09/16/19 09:05 Dose: 40 mg Polyethylene Glycol (Miralax) 17 gm PO DAILYPRN PRN PRN Reason: Constipation Last Admin: 09/14/19 12:40 Dose: 17 gm Rosuvastatin Calcium (Crestor) 40 mg PO HS [facility] Last Admin: 09/15/19 20:11 Dose: 40 mg Sodium Chloride (Flush - Normal Saline) 10 ml IVF Q12HR [facility] Last Admin: 09/16/19 09:06 Dose: 10 ml Zolpidem Tartrate (Ambien) 5 mg PO HSPRN PRN PRN Reason: Insomnia Vital Signs & Weight: Vital Signs Temp Pulse Pulse Pulse Resp BP BP 09/16/19 11:34 98.0 F 97 21 H 09/16/19 10:59 100 96 166/70 H 130/70 09/16/19 07:13 09/16/19 07:05 98.3 F 93 20 09/16/19 06:47 98 20 09/16/19 03:46 97.6 F 95 18 BP BP Pulse Ox Pulse Ox Pulse Ox 09/16/19 11:34 137/73 98 09/16/19 10:59 97 98 09/16/19 07:13 97 09/16/19 07:05 116/70 97 09/16/19 06:47 09/16/19 03:46 118/72 95 Weight 260 lb 3.2 oz - Physical Exam General: alert & oriented x3 Cardiac: regular rate and rhythm, S1/S2 Lungs: decreased breath sounds, bibasilar rales Neuro: cranial nerve 2-12 intact Extremities: no edema - Labs Result Diagrams: 09/15/19 04:05 09/15/19 04:05 Troponin/CKMB Troponin I Less than 0.010 ng/mL (< 0.028) 09/10/19 17:11 - Telemetry Sinus rhythms and dysrhythmias: sinus rhythm - Assessment/Plan Assessment/Plan: 1. CAD with s/p CABG x 3 on 09/11/2019 - Lasix 40mg IV x 1 was given today for congestion;on Statin and ASA; will start bblocker or OMAR/ARB once his VS is more stable 2. AKD - unchanged 3. HTN - stable without any BP meds 4. HLD - on statin 5. COPD - strongly recommend to use inspirometry every hr 7. Obese 8. Prostate cancer 9. Sleep apnea? MAR reviewed * Dr Johns' pt Pt. seen and eval. by me. I agree with the A/P by the GRINDING ROOM SUPERVISOR. He does get significant SOB, dyspnea with little exertion. Chest: decr. BS but no rales or wheeze.Will continue to monitor. efrain
[2019-09-16] MEDS: HYDROcodone/Acetaminophen 5/325 mg Tablet PO PRN (21:19)
[2019-09-16] MEDS: Rosuvastatin 20 MG TAB PO SCH (21:24)
[2019-09-17] MEDS: Mometasone 200 MCG/Formoterol 5 MCG 120 PUFF INHALER INH SCH ×2 (07:00→18:34)
[2019-09-17] MEDS: Ezetimibe 10 MG TAB PO SCH (08:11)
[2019-09-17] MEDS: Docusate 100 MG CAP PO SCH ×2 (08:11→20:57)
[2019-09-17] MEDS: guaiFENesin ER 600 MG TAB PO SCH ×2 (08:11→20:56)
[2019-09-17] MEDS: Aspirin Chewable 81 MG TAB PO SCH (08:11)
--- NOTE | 2019-09-17 13:27 | PDOC.HOSPP ---
- Subjective Encounter Date: 09/17/19 Encounter Time: 11:00 Subjective: feels better this am no sob at rest - Objective Vital Signs & Weight: Vital Signs (12 hours) Temp Pulse Pulse Pulse Resp BP BP 09/17/19 11:00 97.7 F 98 22 H 09/17/19 10:38 98 97 135/78 131/67 09/17/19 08:13 24 H 09/17/19 07:11 09/17/19 07:07 98.4 F 96 23 H 09/17/19 06:54 94 18 09/17/19 03:11 97.5 F L 91 20 BP Pulse Ox Pulse Ox Pulse Ox 09/17/19 11:00 112/72 97 09/17/19 10:38 100 96 09/17/19 08:13 97 09/17/19 07:11 97 09/17/19 07:07 140/82 96 09/17/19 06:54 09/17/19 03:11 109/71 95 Weight Weight 256 lb 14.4 oz Most Recent Monitor Data Heart Rate from ECG 92 NIBP 100/63 NIBP BP-Mean 75 Respiration from ECG 20 SpO2 90 I&O: 09/16/19 09/17/19 09/18/19 06:59 06:59 06:59 Intake Total 1040 1060 Output Total 500 0 Balance 540 1060 Result Diagrams: 09/15/19 04:05 09/15/19 04:05 Hospitalist ROS - Medication Medications: Active Medications Generic Name Dose Route Start Last Admin Trade Name Freq PRN Reason Stop Dose Admin Hydrocodone Bitart/Acetaminophen 2 tab 09/11/19 14:03 09/16/19 21:19 [place] 5/325 PO 2 tab Q4H PRN Administration Severe Pain (7-10) Albuterol/Ipratropium 3 ml 09/12/19 13:00 09/17/19 06:54 Duoneb NEB 3 ml [id number] NIKA Administration Aspirin 81 mg 09/12/19 09:00 09/17/19 08:11 Aspirin Chewable PO 81 mg DAILY NIKA Administration Docusate Sodium 100 mg 09/11/19 21:00 09/17/19 08:11 Colace PO 100 mg BID NIKA Administration Ezetimibe 10 mg 09/12/19 09:00 09/17/19 08:11 Zetia PO 10 mg DAILY NIKA Administration Guaifenesin 1,200 mg 09/15/19 21:00 09/17/19 08:11 Mucinex PO 1,200 mg Q12HR NIKA Administration Mometasone Furoate/Formoterol Fumar 2 puff 09/12/19 18:30 09/17/19 07:00 Dulera 200 Mcg/5 Mcg Inhaler INH 2 puff BID-RT NIKA Administration Ondansetron HCl 4 mg 09/11/19 14:03 09/11/19 21:19 Zofran IVP 4 mg Q6H PRN Administration Nausea/Vomiting Pantoprazole Sodium 40 mg 09/13/19 09:00 09/17/19 08:11 Protonix PO 40 mg DAILY NIKA Administration Polyethylene Glycol 17 gm 09/14/19 12:34 09/14/19 12:40 Miralax PO 17 gm DAILYPRN PRN Administration Constipation Rosuvastatin Calcium 40 mg 09/11/19 21:00 09/16/19 21:24 Crestor PO 40 mg HS NIKA Administration Sodium Chloride 10 ml 09/11/19 21:00 09/17/19 08:12 Flush - Normal Saline IVF 10 ml Q12HR NIKA Administration - Exam General Appearance: awake alert Eye: PERRL, anicteric sclera ENT: no oropharyngeal lesions, moist mucosa Neck: supple, no JVD Heart: RRR, no murmur Respiratory: no wheezes, no rales, rhonchi Gastrointestinal: soft, non-tender, non-distended, normal bowel sounds Extremities: no cyanosis, no edema Neurological: cranial nerve grossly intact, no focal deficits Hosp A/P (1) Status post coronary artery bypass graft Code(s): Z95.1 - PRESENCE OF AORTOCORONARY BYPASS GRAFT Status: Acute (2) Acute kidney injury Code(s): N17.9 - ACUTE KIDNEY FAILURE, UNSPECIFIED Status: Acute (3) COPD (chronic obstructive pulmonary disease) Status: Chronic Qualifiers: COPD type: unspecified COPD Qualified Code(s): J44.9 - Chronic obstructive pulmonary disease, unspecified (4) Malignant neoplasm of prostate Code(s): C61 - MALIGNANT NEOPLASM OF PROSTATE Status: Chronic (5) CAD (coronary artery disease) Code(s): I25.10 - ATHSCL HEART DISEASE OF [place] CORONARY ARTERY W/O ANG PCTRS Status: Chronic Qualifiers: Coronary Disease-Associated Artery/Lesion type: bypass graft [place] vs. transplanted heart: [place] heart Associated angina: without angina Qualified Code(s): I25.810 - Atherosclerosis of coronary artery bypass graft(s) without angina pectoris (6) Dyslipidemia Code(s): E78.5 - HYPERLIPIDEMIA, UNSPECIFIED Status: Chronic (7) HTN (hypertension) Code(s): I10 - ESSENTIAL (PRIMARY) HYPERTENSION Status: Chronic Qualifiers: Hypertension type: essential hypertension Qualified Code(s): I10 - Essential (primary) hypertension (8) Obesity (BMI 30-39.9) Code(s): E66.9 - OBESITY, UNSPECIFIED Status: Chronic - Plan post op cabg he is recovering well, is amb nearly 200ft has exertional sob, i.spirometry. Home O2 if he qualifies. had cabg x 3 vessel (galicia to lad, rsvg to 2nd obtuse danilo and pda) has underlying rosalio, needs to wear cpap at home renal function is holding up continue current meds as above dc plan per CTS adv
--- NOTE | 2019-09-17 16:13 | PDOC.CPN ---
- Subjective Date: 09/17/19 Time: 16:16 Interval history: The pt seen and examined. No overnight events. No cardiac complaints. Per the pt, he may be d/[place] home tomorrow with home O2 - Objective Allergies/Adverse Reactions: Allergies Allergy/AdvReac Type Severity Reaction Status Date / Time No Known Allergies Allergy Verified 09/10/19 15:52 Visit Medications: Current Medications Hydrocodone Bitart/Acetaminophen ([place] 5/325) 1 tab PO Q4H PRN PRN Reason: Moderate Pain (4-6) Hydrocodone Bitart/Acetaminophen ([place] 5/325) 2 tab PO Q4H PRN PRN Reason: Severe Pain (7-10) Last Admin: 09/16/19 21:19 Dose: 2 tab Al Hydroxide/Mg Hydroxide (Maalox) 30 ml PO Q4H PRN PRN Reason: Indigestion Albuterol/Ipratropium (Duoneb) 3 ml NEB [id number] [facility] Last Admin: 09/17/19 13:36 Dose: 3 ml Artificial Tears (Tears Naturale) 0 drop EA EYE PRN PRN PRN Reason: Dry Eyes Aspirin (Aspirin Chewable) 81 mg PO DAILY [facility] Last Admin: 09/17/19 08:11 Dose: 81 mg Bisacodyl (Dulcolax) 10 mg PO Q12H PRN PRN Reason: Constipation Bisacodyl (Dulcolax) 10 mg [place] Q12H PRN PRN Reason: Constipation Diphenhydramine HCl (Benadryl) 25 mg PO Q6H PRN PRN Reason: Itching & Insomnia or Alin Dami Docusate Sodium (Colace) 100 mg PO BID [facility] Last Admin: 09/17/19 08:11 Dose: 100 mg Ezetimibe (Zetia) 10 mg PO DAILY [facility] Last Admin: 09/17/19 08:11 Dose: 10 mg Guaifenesin (Mucinex) 1,200 mg PO Q12HR [facility] Last Admin: 09/17/19 08:11 Dose: 1,200 mg Guaifenesin/Dextromethorphan (Robitussin Dm) 15 ml PO Q4H PRN PRN Reason: Cough Mineral Oil (Fleet Mineral Oil) 133 ml [place] DAILYPRN PRN PRN Reason: Constipation Mometasone Furoate/Formoterol Fumar (Dulera 200 Mcg/5 Mcg Inhaler) 2 puff INH BID-RT [facility] Last Admin: 09/17/19 07:00 Dose: 2 puff Nitroglycerin (Nitrostat) 0.4 mg SL Q5MIN PRN PRN Reason: Chest Pain Ondansetron HCl (Zofran) 4 mg IVP Q6H PRN PRN Reason: Nausea/Vomiting Last Admin: 09/11/19 21:19 Dose: 4 mg Pantoprazole Sodium (Protonix) 40 mg PO DAILY [facility] Last Admin: 09/17/19 08:11 Dose: 40 mg Polyethylene Glycol (Miralax) 17 gm PO DAILYPRN PRN PRN Reason: Constipation Last Admin: 09/14/19 12:40 Dose: 17 gm Rosuvastatin Calcium (Crestor) 40 mg PO HS [facility] Last Admin: 09/16/19 21:24 Dose: 40 mg Sodium Chloride (Flush - Normal Saline) 10 ml IVF Q12HR [facility] Last Admin: 09/17/19 08:12 Dose: 10 ml Zolpidem Tartrate (Ambien) 5 mg PO HSPRN PRN PRN Reason: Insomnia Vital Signs & Weight: Vital Signs Temp Pulse Pulse Pulse Resp BP BP 09/17/19 15:00 98.8 F 99 21 H 09/17/19 14:15 103 H 99 125/60 125/62 09/17/19 13:36 99 18 09/17/19 11:00 97.7 F 98 22 H 09/17/19 10:38 98 97 135/78 131/67 09/17/19 08:13 24 H 09/17/19 07:11 09/17/19 07:07 98.4 F 96 23 H 09/17/19 06:54 94 18 BP Pulse Ox Pulse Ox Pulse Ox 09/17/19 15:00 123/62 96 09/17/19 14:15 98 96 09/17/19 13:36 09/17/19 11:00 112/72 97 09/17/19 10:38 100 96 09/17/19 08:13 97 09/17/19 07:11 97 09/17/19 07:07 140/82 96 09/17/19 06:54 Weight 256 lb 14.4 oz - Physical Exam General: alert & oriented x3 HEENT: mucus membranes moist Neck: supple neck Cardiac: regular rate and rhythm, S1/S2 Lungs: decreased breath sounds Neuro: cranial nerve 2-12 intact Extremities: no edema - Labs Result Diagrams: 09/15/19 04:05 09/15/19 04:05 Troponin/CKMB Troponin I Less than 0.010 ng/mL (< 0.028) 09/10/19 17:11 - Telemetry Sinus rhythms and dysrhythmias: sinus rhythm - Assessment/Plan Assessment/Plan: 1. CAD with s/p CABG x 3 on 09/11/2019 - on Statin and ASA; will start OMAR/ARB once his renal function is more stable; not on BBlocker due to hx of severe COPD 2. AKD - unchanged 3. HTN - stable without any BP meds 4. HLD - on statin 5. Severe COPD - strongly recommend to use inspirometry every hr 7. Obese 8. Prostate cancer 9. Sleep apnea with Cpap MAR reviewed * Dr Johns' pt Pt. seen and eval. by me. I agree with the A/P by the VEHICLE RETURN ASSOCIATE. RRR, decreased BS throughout g[facility]
[2019-09-17] MEDS: Rosuvastatin 20 MG TAB PO SCH (20:56)
[2019-09-17] MEDS: HYDROcodone/Acetaminophen 5/325 mg Tablet PO PRN (20:57)
[2019-09-18] MEDS: Mometasone 200 MCG/Formoterol 5 MCG 120 PUFF INHALER INH SCH (06:56)
--- NOTE | 2019-09-18 09:05 | PDOC.HOSPP ---
- Subjective Encounter Date: 09/18/19 Encounter Time: 10:00 Subjective: Patient doing much better. Still very short of breath with ambulation but sating well while at rest. Had cardiac rehab ambulate patient on room air and he dropped to 78%, came up with 2L NC O2. - Objective Vital Signs & Weight: Vital Signs (12 hours) Temp Pulse Resp BP Pulse Ox 09/18/19 06:56 96 16 96 09/18/19 02:58 98.0 F 96 20 104/65 96 09/18/19 00:48 95 09/17/19 23:46 99 09/17/19 23:32 97 Weight Weight 156 lb 8 oz Most Recent Monitor Data Heart Rate from ECG 92 NIBP 100/63 NIBP BP-Mean 75 Respiration from ECG 20 SpO2 90 I&O: 09/17/19 09/18/19 09/19/19 06:59 06:59 06:59 Intake Total 1060 970 Output Total 0 Balance 1060 970 Result Diagrams: 09/15/19 04:05 09/15/19 04:05 Hospitalist ROS - Review of Systems Constitutional: denies: fever, chills Respiratory: reports: SOB with excertion. denies: cough, shortness of breath Cardiovascular: denies: chest pain, palpitations Gastrointestinal: denies: nausea, vomiting, abdominal pain - Medication Medications: Active Medications Generic Name Dose Route Start Last Admin Trade Name Freq PRN Reason Stop Dose Admin Hydrocodone Bitart/Acetaminophen 2 tab 09/11/19 14:03 09/17/19 20:57 [place] 5/325 PO 2 tab Q4H PRN Administration Severe Pain (7-10) Albuterol/Ipratropium 3 ml 09/12/19 13:00 09/18/19 06:56 Duoneb NEB 3 ml [id number] NIKA Administration Aspirin 81 mg 09/12/19 09:00 09/17/19 08:11 Aspirin Chewable PO 81 mg DAILY NIKA Administration Docusate Sodium 100 mg 09/11/19 21:00 09/17/19 20:57 Colace PO 100 mg BID NIKA Administration Ezetimibe 10 mg 09/12/19 09:00 09/17/19 08:11 Zetia PO 10 mg DAILY NIKA Administration Guaifenesin 1,200 mg 09/15/19 21:00 09/17/19 20:56 Mucinex PO 1,200 mg Q12HR NIKA Administration Mometasone Furoate/Formoterol Fumar 2 puff 09/12/19 18:30 09/18/19 06:56 Dulera 200 Mcg/5 Mcg Inhaler INH 2 puff BID-RT NIKA Administration Ondansetron HCl 4 mg 09/11/19 14:03 09/11/19 21:19 Zofran IVP 4 mg Q6H PRN Administration Nausea/Vomiting Pantoprazole Sodium 40 mg 09/13/19 09:00 09/17/19 08:11 Protonix PO 40 mg DAILY NIKA Administration Polyethylene Glycol 17 gm 09/14/19 12:34 09/14/19 12:40 Miralax PO 17 gm DAILYPRN PRN Administration Constipation Rosuvastatin Calcium 40 mg 09/11/19 21:00 09/17/19 20:56 Crestor PO 40 mg HS NIKA Administration Sodium Chloride 10 ml 09/11/19 21:00 09/17/19 20:56 Flush - Normal Saline IVF 10 ml Q12HR NIKA Administration - Exam General Appearance: NAD, awake alert ENT: moist mucosa Heart: RRR, no murmur, no gallops, no rubs Respiratory: CTAB, no wheezes, no rales, no ronchi Respiratory - other findings: sternotomy incision C/D/I Gastrointestinal: soft, non-tender, non-distended, normal bowel sounds Psychiatric: normal affect, normal behavior, A&O x 3 Hosp A/P (1) Status post coronary artery bypass graft Code(s): Z95.1 - PRESENCE OF AORTOCORONARY BYPASS GRAFT Status: Acute (2) Acute kidney injury Code(s): N17.9 - ACUTE KIDNEY FAILURE, UNSPECIFIED Status: Acute (3) COPD (chronic obstructive pulmonary disease) Status: Chronic Qualifiers: COPD type: unspecified COPD Qualified Code(s): J44.9 - Chronic obstructive pulmonary disease, unspecified (4) Malignant neoplasm of prostate Code(s): C61 - MALIGNANT NEOPLASM OF PROSTATE Status: Chronic (5) CAD (coronary artery disease) Code(s): I25.10 - ATHSCL HEART DISEASE OF [place] CORONARY ARTERY W/O ANG PCTRS Status: Chronic Qualifiers: Coronary Disease-Associated Artery/Lesion type: bypass graft [place] vs. transplanted heart: [place] heart Associated angina: without angina Qualified Code(s): I25.810 - Atherosclerosis of coronary artery bypass graft(s) without angina pectoris (6) Dyslipidemia Code(s): E78.5 - HYPERLIPIDEMIA, UNSPECIFIED Status: Chronic (7) HTN (hypertension) Code(s): I10 - ESSENTIAL (PRIMARY) HYPERTENSION Status: Chronic Qualifiers: Hypertension type: essential hypertension Qualified Code(s): I10 - Essential (primary) hypertension (8) Obesity (BMI 30-39.9) Code(s): E66.9 - OBESITY, UNSPECIFIED Status: Chronic (9) Acute respiratory failure with hypoxia Code(s): J96.01 - ACUTE RESPIRATORY FAILURE WITH HYPOXIA Status: Acute - Plan post op cabg he is recovering well, is amb nearly 200ft has exertional sob, i.spirometry. Sating well on RA this AM but desats with ambulation so will need home O2 had cabg x 3 vessel (galicia to lad, rsvg to 2nd obtuse danilo and pda) has underlying rosalio, needs to wear cpap at home renal function is holding up, OMAR/ARB when ok with cardiology/CT surg continue current meds as above dc plan per CTS today
[2019-09-18] MEDS: Aspirin Chewable 81 MG TAB PO SCH (09:16)
[2019-09-18] MEDS: Docusate 100 MG CAP PO SCH (09:16)
[2019-09-18] MEDS: guaiFENesin ER 600 MG TAB PO SCH (09:16)
[2019-09-18] MEDS: Ezetimibe 10 MG TAB PO SCH (09:16)
--- NOTE | 2019-09-18 10:27 | PRG ---
DATE OF SERVICE: 09/18/2019 SUBJECTIVE: The patient is doing well, may be going home today. OBJECTIVE: VITAL SIGNS: Temperature 98.2, pulse 100, respirations 20, O2 saturation 98% on 2 L and 95% on room air at rest, blood pressure 123/81. HEENT: Unremarkable. NECK: No adenopathy or JVD. CHEST: Clear. CARDIAC: S1 and S2. Regular. ABDOMEN: Soft. EXTREMITIES: No edema. ASSESSMENT: 1. Severe chronic obstructive pulmonary disease. 2. Obstructive sleep apnea. 3. Status post coronary artery bypass grafting surgery. 4. Hypoxemia secondary to chronic obstructive pulmonary disease. PLAN: The patient may need home oxygen with exertion at night temporarily. He will have home O2 evaluation prior to discharge. Job ID: [id number]
[2019-09-18 16:36] VITALS: BP 128/84; TEMP 98.5
--- NOTE | 2019-09-19 06:15 | DIS ---
DATE OF ADMISSION: 09/11/2019 DATE OF DISCHARGE: 09/18/2019 PRIMARY CARE PHYSICIAN: Dr. Henry. REASON FOR ADMISSION: Chest pain. DISCHARGE DIAGNOSES: 1. Severe coronary artery disease, status post 3-vessel coronary artery bypass grafting. 2. Acute renal failure, improved. 3. Chronic obstructive pulmonary disease. 4. Acute respiratory failure with hypoxia with ambulation. 5. Chronic malignant neoplasm of the prostate. 6. Dyslipidemia. 7. Hypertension. 8. Obesity. PROCEDURES: Coronary artery bypass grafting x3 with left internal mammary artery to the distal LAD and reversed greater saphenous vein graft from the aorta to the second obtuse marginal and from the aorta to the PDA. CONSULTATIONS: 1. Cardiology, Dr. Billy. 2. Cardiovascular Surgery, Dr. Mism. 3. Urology, Dr. Guzman. 4. Pulmonology, Dr. Lubin. SUMMARY OF HOSPITAL COURSE: This is a 74-year-old white male with a known history of coronary artery disease with recent abnormal stress test and a CABG showing severe multivessel disease. He saw Dr. Granado as an outpatient and then it was thought that he would need a 3-vessel CABG, scheduled for the 21 of September. However, the patient developed chest pain at home and so came into the emergency room as instructed. He was evaluated by Dr. Granado and then was brought back for his CABG. He did have a history of prostate issues and so Dr. Guzman was consulted for his Andres placement. The patient did well postoperatively. He did have some acute renal failure during his hospitalization that was improving at time of discharge. However, his OMAR inhibitor remains on hold as well as his metformin. His blood sugars have been well controlled on just diabetic diet and he has been improving his oxygenation. He has been able to be weaned off oxygen while at rest. However, he still drops to 78% with ambulation, so home O2 is being arranged currently. The patient is also going to get cardiac rehab at home. DISCHARGE MANAGEMENT: Discharged home. ACTIVITY: As tolerated. DIET: Diabetic diet. THERAPIES: Follow up with outpatient cardiac rehab in [place]. EQUIPMENT SUPPLIES: Home oxygen 2 L nasal cannula. DISCHARGE MEDICATIONS: 1. Aspirin 81 mg daily. 2. Zetia 10 mg daily. 3. Isosorbide mononitrate 30 mg daily. 4. Rosuvastatin 40 mg daily. 5. Symbicort 2 puffs inhaled twice a day. 6. Tramadol as needed for pain. 7. Ventolin as needed. 8. Testosterone intramuscular every month. 9. Omeprazole 40 mg twice a day. 10. Nortriptyline 50 mg daily. 11. Ascorbic acid 10 mg daily. 12. Alprazolam as needed for anxiety. The patient is to hold his lisinopril/hydrochlorothiazide as well as his metformin at this time. FOLLOWUP: The patient is to follow up with Dr. Henry on 09/20/2019 at 1345 hours, with Dr. Johns in 3 to 4 weeks, with Dr. Granado on 09/28/2019 at 1330 hours, and with cardiac rehab as directed. TIME SPENT: Arranging the details of this discharge took 35 minutes. Job ID: [id number]
--- NOTE | 2019-09-19 17:01 | EKG ---
Test Reason : Blood Pressure : / mmHG Vent. Rate : 072 BPM Atrial Rate : 072 BPM P-R Int : 150 ms QRS Dur : 088 ms QT Int : 396 ms P-R-T Axes : 028 023 082 degrees QTc Int : 433 ms Normal sinus rhythm Normal ECG Confirmed by KAYLA SHOEMAKER ([id number]), video effects editor EARLINE PAZ ([id number]) on 09/19/2019 5:00:38 PM Referred By: Confirmed By:KAYLA SHOEMAKER
== END 2019-09-18 18:34 | disposition home or self-care (01) | DRG 235 ==
LOC: ERS 11:13 → 2NO 15:47 → OBSVTOIN 09-11 07:41 → CCU 09-11 14:29 → 2NO 09-13 11:02
PROVIDERS: ADMIT Internal Medicine; ATTEND Internal Medicine
PROC: 021109W Bypass Coronary Artery, Two Arteries from Aorta with Autologous Venous Tissue, Open Approach (ICD-10-PCS; principal; 2019-09-11)
PROC: 06BQ3ZZ Excision of Left Saphenous Vein, Percutaneous Approach (ICD-10-PCS; 2019-09-11)
PROC: 02100Z9 Bypass Coronary Artery, One Artery from Left Internal Mammary, Open Approach (ICD-10-PCS; 2019-09-11)
PROC: 5A1221Z Performance of Cardiac Output, Continuous (ICD-10-PCS; 2019-09-11)
PROC: B54CZZA Ultrasonography of Left Lower Extremity Veins, Guidance (ICD-10-PCS; 2019-09-11)
DX: I25.110 Atherosclerotic heart disease of native coronary artery with unstable angina pectoris (principal); J96.01 Acute respiratory failure with hypoxia; N30.41 Irradiation cystitis with hematuria; N17.9 Acute kidney failure, unspecified; Z11.59 Encounter for screening for other viral diseases; I10 Essential (primary) hypertension; J44.9 Chronic obstructive pulmonary disease, unspecified; E78.00 Pure hypercholesterolemia, unspecified; G47.33 Obstructive sleep apnea (adult) (pediatric); I73.9 Peripheral vascular disease, unspecified; E66.9 Obesity, unspecified; E78.5 Hyperlipidemia, unspecified; Z85.46 Personal history of malignant neoplasm of prostate; Z90.49 Acquired absence of other specified parts of digestive tract; Z87.891 Personal history of nicotine dependence; Z79.51 Long term (current) use of inhaled steroids; Z79.82 Long term (current) use of aspirin; Z79.899 Other long term (current) drug therapy; Z68.21 Body mass index [BMI] 21.0-21.9, adult
CPT/HCPCS: 36415; 36416; 36430; 71045; 71046; 80048; 80053; 80061; 82805; 83880; 84484; 85025; 85610; 85730; 86850; 86900; 86901; 87635; 93005; 93010; 93798; 94640; 94760; 96366; 96367; 96372; 96375; 96376; 97139; G0378; J0690; J1100; J1642; J1644; J1650; J1815; J1885; J1940; J2250; J2405; J2440; J2720; J3010; J3370; J3475; J3480; J3490; J7620; P9045; S0017; S0028; U0003

== ENCOUNTER 2019-09-20 19:12 | Emergency (ER) | payer MEDICARE, OTHER ==
--- NOTE | 2019-09-20 21:45 | PRG ---
DATE OF SERVICE: 09/20/2019 Under sterile conditions, a 16-[place] Andres catheter was passed through the urethra and guided into the bladder with no significant obstruction. Dark red urine had initially drained. I was able to irrigate the bladder with about 300 mL after removing just over 500 mL. Several clots were removed upon irrigating with the urine remaining light pink afterwards. This was connected to leg bag. The patient tolerated the procedure well. Job ID: [id number]
--- NOTE | 2019-09-21 08:09 | CON ---
DATE OF CONSULTATION: 09/20/2019 REASON FOR CONSULT: Hematuria and retention. CHIEF COMPLAINT: Inability to urinate. HISTORY OF PRESENT ILLNESS: This is a 74-year-old male with a history of radical prostatectomy 5 to 6 years ago with adjuvant radiotherapy. He recently underwent CABG on September 10 and was discharged home two days ago. Early this morning, he noted dark red urine and was unable to urinate other than dribbling small amounts. He presented to the emergency room at [place] this afternoon, where he was found to be in retention and was transferred here for further management. In speaking with him this evening, he reports that he is having bladder discomfort and has begun voiding slightly more than earlier today. He denies flank pain, nausea, vomiting, fevers, or chills. No dysuria, although he does have bladder pain when he attempts to urinate. PAST MEDICAL HISTORY: Coronary artery disease, prostate cancer, hypertension, diabetes, hyperlipidemia, sleep apnea, COPD, chronic kidney disease, and obesity. PAST SURGICAL HISTORY: Open prostatectomy, cholecystectomy, iliac stents, and coronary artery bypass graft. SOCIAL HISTORY: Former smoker. No current substance abuse. FAMILY HISTORY: Noncontributory. REVIEW OF SYSTEMS: Ten-point review of systems is negative except as mentioned in my HPI. PHYSICAL EXAMINATION: VITAL SIGNS: Afebrile. Vitals stable. GENERAL: No acute distress, conversant. HEENT: Head, normocephalic and atraumatic. Eyes, extraocular movements intact. Sclerae nonicteric. NECK: Supple. Trachea midline. LUNGS: Unlabored breathing. Symmetric chest expansion. Midline chest incision. HEART: Regular rate and rhythm. ABDOMEN: Soft, protuberant, and nontender. No flank tenderness. Moderate suprapubic tenderness. Unable to palpate bladder due to body habitus. SKIN: Warm and dry. EXTREMITIES: No peripheral cyanosis or clubbing. NEUROLOGIC: Alert and oriented x3. Normal mood and affect. LABORATORY DATA: Hemoglobin 9.6. Coags normal. Creatinine 1.4. Urinalysis, negative nitrites or leukocyte esterase. ASSESSMENT AND PLAN: Gross hematuria, urinary retention. Andres catheter placed as will be dictated below. Catheter connected to leg bag - this will need to remain likely for 1 to 2 weeks. I am treating him empirically for possible infection. However, this may simply be due to distention in the setting of radiation cystitis. As long as his catheter continues to drain well over the next 30 minutes, he will be discharged home tonight. TIME SPENT: Greater than 70 minutes spent in the patient care. Job ID: [id number]
== END 2019-09-20 22:23 | disposition home or self-care (01) ==
LOC: ERS 19:12
DX: R31.0 Gross hematuria (principal); R33.9 Retention of urine, unspecified; I25.10 Atherosclerotic heart disease of native coronary artery without angina pectoris; E11.9 Type 2 diabetes mellitus without complications; E78.5 Hyperlipidemia, unspecified; I10 Essential (primary) hypertension; G47.30 Sleep apnea, unspecified; E66.9 Obesity, unspecified; Z87.891 Personal history of nicotine dependence; Z79.899 Other long term (current) drug therapy
CPT/HCPCS: 51703

== ENCOUNTER 2019-09-22 15:24 | Inpatient (IN) | payer MEDICARE, OTHER ==
[2019-09-22] MEDS ORDERED: Acetaminophen 325 MG TAB PO PRN ×2 (15:56→17:18)
[2019-09-22] MEDS ORDERED: Senokot S 8.6-50 MG TAB PO PRN (15:56)
[2019-09-22] MEDS ORDERED: ALPRAZolam 0.5 MG TAB PO PRN (15:59)
[2019-09-22] MEDS ORDERED: Furosemide 20 MG TAB PO SCH (16:30)
[2019-09-22 16:36] LABS: #Eosinphils 0.1 thou/uL (0.0-0.7); #Lymphocytes 0.8 thou/uL (1.20-3.40); #Monocytes 0.9 thou/uL (0.11-0.59); #Neutrophils 8.3 thou/uL (1.40-6.50); %Basophils 0.3 % (0.0-1.0); %Eosinophils 0.7 % (0.0-10.0); %Lymphocytes 7.6 % (21.0-51.0); %Neutrophils 82.4 % (42.0-75.0); Hemoglobin 9.3 g/dL (14.0-18.0); Mean Corpuscular HGB CONC 33.1 g/dL (32.0-36.0); Mean Corpuscular Hemoglobin 31.4 pg (27.0-31.0); Mean Corpuscular Volume 94.7 fL (78.0-98.0); Mean Platelet Volume 7.9 fL (7.4-10.4); Platelet Count 366 thou/uL (130-400); RBC Distribution Width 14.3 % (11.5-14.5); Red Blood Cell (RBC) Count 2.97 mill/uL (4.70-6.10)
[2019-09-22 17:03] LABS: ALT (SGPT) 107 U/L (8-55); AST (SGOT) 63 U/L (5-34); Albumin 3.2 g/dL (3.4-4.8); Alkaline Phosphatase 156 U/L (40-110); Anion Gap 11 mmol/L (10-20); BUN (Urea Nitrogen) 30 mg/dL (8.4-25.7); Bilirubin, Total 0.7 mg/dL (0.2-1.2); Calc. Creatinine Clearance 0 mL/min (70-130); Calcium 8.6 mg/dL (7.8-10.44); Carbon Dioxide 24 mmol/L (23-31); Chloride 103 mmol/L (98-107); Estimated GFR-MDRD 57; Globulin 2.8 g/dL (2.4-3.5); Glucose 109 mg/dL (83-110); Potassium 4.4 mmol/L (3.5-5.1); Sodium 134 mmol/L (136-145)
[2019-09-22] MEDS ORDERED: traMADol HCl 50 MG TAB PO PRN (17:17)
[2019-09-22] MEDS: cefTRIAXone\\ROCEPHIN 1 GM in Sodium Chloride 0.9% 100 ML IVPB SCH (17:25)
[2019-09-22] MEDS ORDERED: Albuterol Sulfate 2.5 mg/3 ml Neb NEB PRN (17:30)
[2019-09-22] MEDS ORDERED: Furosemide 40 MG/4 ML VIAL SLOW IVP SCH (19:00)
--- NOTE | 2019-09-22 19:52 | HP ---
This is LEV Bruce dictating a report for Dai Houston MD. PRIMARY CARE PHYSICIAN: Dr. Henry. UROLOGIST: Dr. Guzman. PNEUDRAULIC SYSTEMS MECHANIC: Dr. Johns. FAMILY SERVICES ASSISTANT: Dr. Lubin. CHIEF COMPLAINT: Urinary retention with hematuria, shortness of breath, and hypoxia. HISTORY OF PRESENT ILLNESS: Mr. Meyer is a very pleasant 74-year-old man, who was recently discharged from here on the , status post CABG x3 vessel. He was sent home on oxygen. He did well on the first several days after being discharged, and then on Wednesday, the , he was experiencing some pain to the end of his penis, some suprapubic tenderness, and some urinary retention, and so, he went to the emergency room in [place]. He was subsequently sent to the emergency room at [facility] for a Urology consult. Dr. Gzuman has done surgery and follows this patient and has told him not to allow anyone but a urologist place a catheter, so he was sent to [facility] at that time for Dr. Westbrook who was on-call to place the catheter. He received one in the emergency room at [facility] on the . It was flushed. He was feeling better, and he was discharged home with instructions to follow up with Urology. He said he did okay for a couple of days, and then this morning, he noticed when he woke up that the catheter was not draining any urine and that he had some oozing of blood and urine around the catheter. He called Dr. Guzman' office who asked for him to come into the office today. He went, and she was able to flush it. She pulled the existing catheter, placed a bigger catheter, and noted that he was hypoxic. He had come to the clinic without his normal oxygen, and in the office, his pO2 was about 78%. She was concerned as he is a fresh CABG patient, so she wanted him to come to [facility] for readmission and allow them to monitor him a little closely and that she would follow up in a couple of days. REVIEW OF SYSTEMS: The patient denies any fever or chills. He did on Wednesday report some dysuria, some hematuria, hesitancy, increased urinary frequency, and output changes. This morning, he reports that he still had the hematuria, but had a blocked catheter that was replaced in Dr. Guzman' office, and those symptoms are improved. He is status post CABG. Does have some shortness of breath on exertion after surgery. He is on oxygen normally. Has an O2 checked at home. Does report some lower leg edema, pitting. Reports that he has gained about 12 pounds since the surgery. He denies any chest pain or any worsening shortness of breath. Denies any abdominal pain, nausea, vomiting, or diarrhea. All systems are reviewed and are negative except for what is mentioned above or in HPI. PAST MEDICAL HISTORY: Coronary artery disease, diabetes, prostate cancer, hyperlipidemia, hypertension, COPD, sleep apnea, dyslipidemia, and obesity. PAST SURGICAL HISTORY: Cholecystectomy, prostate surgery, back surgery x1, bilateral iliac stents, and CABG x3 within the last 2 weeks. PSYCHIATRIC HISTORY: None. SOCIAL HISTORY: He is a former tobacco smoker. He quit smoking more than 20 years ago. Denies any alcohol use or drug use. ALLERGIES: NONE. HOME MEDICATIONS: 1. Aspirin 81 mg p.o. daily. 2. Zetia 10 mg p.o. daily. 3. Prilosec 40 mg p.o. p.r.n. 4. Crestor 40 mg p.o. daily. 5. Symbicort 2 puffs b.i.d. 6. Ventolin inhaler 2 puffs q.6 hours. 7. Hydrocodone-Tylenol 5 mg-325 one to two tablets p.o. q.4 hours as needed. He also was given some Rocephin yesterday by Dr. Guzman. This will continue. Dr. Johns is going to put him on some Lasix 40 mg p.o. daily. PHYSICAL EXAMINATION: VITAL SIGNS: Temperature is 97.8, pulse is 92, respiratory rate is 24, pO2 saturations are 97% on 2 L nasal cannula, blood pressure is 128/98. CONSTITUTIONAL: The patient is nontoxic appearing. He is alert and oriented to person, place, and time. HEENT: Head is atraumatic and normocephalic. Eyes; pupils are equal, round, and reactive to light. Extraocular muscles are intact. NECK: Normal range of motion. Trachea is midline. RESPIRATORY: Breath sounds are clear. Chest expansion is equal. CARDIOVASCULAR: Regular rate and rhythm. Heart sounds are normal. He has a midline CABG incision, which is well healing. No signs of erythema or edema around this incision. It is well approximated. ABDOMEN: Nontender on palpation. Bowel sounds are heard. He has some mild distention present. He has some healing wounds from drains to the top of the abdomen. : The patient has a catheter placed draining red urine. BACK: Normal range of motion. No tenderness. EXTREMITIES: Upper extremities; normal range of motion. Motor strength is normal. Radial pulses are normal. Lower extremities; range of motion is normal. Motor strength is normal. He has a surgical wound to the upper left thigh. He has pitting edema to both extremities. Pedal pulses are normal. NEUROLOGIC: The patient is oriented to person, place, and time. Speech is normal. SKIN: Warm, dry, and normal in color. PSYCHIATRIC: Has normal affect. ASSESSMENT AND PLAN: 1. Hypoxia in the context of a recent coronary artery bypass grafting, went to Dr. Guzman' office today without his portable O2. We will obtain an echocardiogram. We will start the Lasix IV for some lower leg edema, potential fluid overload. 2. Urinary retention with some hematuria. He has a urinary catheter placed. Dr. Guzman, continue the Rocephin 1 g daily. The patient has a continuous bladder irrigation in place. 3. We have asked Cardiology and Cardiovascular Surgery to consult. 4. History of hyperlipidemia. His home medications have been restarted. 5. History of chronic obstructive pulmonary disease. His home inhalers have been restarted. This appears to be stable. 6. Deep venous thrombosis and gastrointestinal prophylaxis started. 7. Case was discussed with Dr. Houston, who agrees with plan. 8. Hospital course dependent on clinical findings. Job ID: [id number]
[2019-09-22] MEDS: Enoxaparin Sodium 40 MG/0.4 ML SYRINGE SC SCH (21:23)
[2019-09-22] MEDS: Rosuvastatin 20 MG TAB PO SCH (21:23)
[2019-09-22] MEDS: Docusate 100 MG CAP PO SCH (21:23)
[2019-09-22] MEDS: Trospium 20 MG TAB PO SCH (21:23)
[2019-09-22] MEDS: Famotidine/PF 20 mg/2ml Vial SLOW IVP SCH (21:23)
[2019-09-22] MEDS: Nortriptyline HCl 25 MG CAP PO SCH (21:24)
--- NOTE | 2019-09-22 21:59 | CON ---
DATE OF CONSULTATION: 09/22/2019 PRIMARY CARE PHYSICIAN: Dr. Henry. HISTORY OF PRESENT ILLNESS: Mr. Meyer is a pleasant 74-year-old male, known to me as he underwent radical prostatectomy back in December 2013, with pathologic T3 N0 [place] sum 3+ 4. He underwent adjuvant radiation therapy completed in 2014 with no evidence of cancer recurrence. His last PSA record is belinda in May 2019. I recently saw him as a courtesy visit as he was undergoing coronary artery bypass graft, I placed a 16-Mauritanian Andres catheter which passed without significant issues preoperatively. Subsequently, he was discharged without an indwelling Andres catheter, which he voided without significant issues. He had never had prior history of urinary retention, he did not have significant stress incontinence. He has had mild urge incontinence after radiation therapy, which we are observing as it is minimally bothersome. He did undergo cystoscopy, as he did develop prior gross hematuria after his radiation therapy in 2014. Cystoscopy in July 2017 demonstrated radiation cystitis changes, with no evidence of bladder neck contracture, no evidence of urethral stricture of concern. As he presented to the emergency room a few days ago with 400 mL of postvoid residual, urology data control assistant was present in which a 20-Mauritanian Andres catheter was attempted. As there was difficulty passing a 20-Mauritanian catheter, a 16-Mauritanian catheter was placed by Dr. Westbrook. He was irrigated and discharged with an indwelling Andres catheter leg bag. When I saw him, subsequently, he was having bladder spasms, Andres catheter was irrigated, however, to ensure proper placement of the Andres catheter as there was spasms related to irrigation, he underwent cystoscopy in my office yesterday, in which there was traumatic Andres catheter changes at the bladder neck, and a 22-Mauritanian 3-way Andres catheter was placed over guidewire assist. His hematuria was mild, therefore we encouraged him to observe, and leave indwelling Andres catheter until his traumatic Andres catheter placement had healed for a repeat cystoscopy in few weeks. He presents to my office as a work-in this afternoon as his catheter stopped draining. I would say I irrigated his Andres catheter without any difficulty. About 20 mL of clots, venous were evacuated with subsequent drainage without issues. As he appears more pale, appears to be decompensating with more shortness of breath, and blood pressure labile. I did discuss with hospitalist, Cardiology, CV Surgery on-call regarding his admission, as he needs to be medically optimized. I spoke with the hospitalist, Dr. Houston who accepted the admission. Labs were placed and await CBC. Currently CBI remains in place. PAST MEDICAL HISTORY: Hypertension, hypercholesteremia, coronary artery disease , history of GI bleed, history of prostate cancer, pathologic T3 N0, [place] sum 3 +4, history of vertebral fracture, COPD. SURGICAL HISTORY: 1. Cardiac cath in 2009. 2. Colonoscopy, radical prostatectomy, bilateral pelvic lymph node dissection in December 2013, subsequent radiation, January 2015, cholecystectomy August 2016. 3. Bilateral iliac stents. 4. Local cystoscopy July 2017 demonstrated radiation cystitis changes. No evidence of bladder neck contracture. 5. Coronary artery bypass graft recently September 2019. FAMILY HISTORY: Positive for heart disease, diabetes, colon cancer, prostate cancer. SOCIAL HISTORY: Includes no illicit drugs. Former smoker, quit about 20 years ago. No known drug allergies. REVIEW OF SYSTEMS: Ten-point review of systems as above, otherwise noncontributory. PHYSICAL EXAMINATION: VITAL SIGNS: On arrival 97.8 and 92, respiration 24, 97% on 2 L. Blood pressure 120/98. GENERAL: The patient appears fatigued, conversational dyspnea, appears pale. at bedside. HEENT: Grossly unremarkable. HEART: Regular rate. Although tachypnea, lung sound relatively clear with no evidence of obvious crackles or decreased breath sounds. ABDOMEN: Morbidly obese. Sternotomy incisions are noted, no CVA tenderness. No rigidity. No rebound. : A 22-Mauritanian 3-way Andres catheter remains. CBI going at a low rate with clear bel urine. Testes are descended with no evidence of intratesticular mass. EXTREMITIES: Bilateral lower extremity edema, left greater than right. No calf tenderness is appreciated. NEUROLOGIC: No gross focal deficits. MUSCULOSKELETAL: Sensation is intact. SKIN: No significant sick skin breakdown or rash appreciated. PSYCHIATRIC: Appears to be appropriate and intact. LABORATORY DATA: Stat labs are pending. His recent CBC on September 19 is 11, hemoglobin 9.6, platelet 392. Creatinine is 1.4. Of note, while admitted for CABG, he did have acute renal insufficiency with creatinine elevated to 1.93. UA on September 20, 2019 when he presented with acute urinary retention, color is yellow, greater than 300 wbc's, large blood, greater than 50 rbc's 4-6 wbc's, rare bacteria. Urine culture demonstrates preliminary E. coli, sensitivity pending. Of note, I did provide him Rocephin yesterday, outpatient Omnicef until sensitivity pending. IMPRESSION AND PLAN: 1. Mr. Meyer is a 74-year-old male with history of prostate cancer, status post radical prostatectomy, pathologic T3, N0 [place] sum 3+4, status post adjuvant radiation therapy. 2. Prior cystoscopy demonstrating radiation cystitis; however, with no evidence of recurrent gross hematuria, nor bladder neck contracture. 3. Recent coronary artery bypass grafting, appears fluid loaded, conversational dyspnea; cannot rule out significant anemia. 4. Severe chronic obstructive pulmonary disease. 5. Recent urinary retention with hematuria, traumatic Andres catheter placement with persistent hematuria. I did conference with hospitalist, cardiology, Dr. Champagne, Dr. Mims who is on-call, due to patient's decompensated state, medical admission was advised, which subspecialists agree. I informed the patient that he will be optimized, he is to be typed and crossed and transfused if needed, which I will leave to the discretion to his flame burner and Medical Service. Regarding his hematuria, multifactorial due to acute urinary retention, pre-existing radiation cystitis, Andres catheter trauma. His continuous bladder irrigation is going at a relatively low rate. Continue continuous bladder irrigation over the weekend and broad-spectrum antibiotics until sensitivity can be reviewed. trospium for bladder spasms due to continuous bladder irrigation initiated. The patient informed regarding indications for admission and agreed to be admitted to the medical service for medical optimization. [facility] are covering me this weekend. Anticipate patient will be in- house over the weekend for medical optimization. Job ID: [id number] [facility]
[2019-09-23 04:29] LABS: #Eosinphils 0.1 thou/uL (0.0-0.7); #Lymphocytes 0.8 thou/uL (1.20-3.40); #Monocytes 0.8 thou/uL (0.11-0.59); #Neutrophils 8.5 thou/uL (1.40-6.50); %Basophils 0.2 % (0.0-1.0); %Eosinophils 1.2 % (0.0-10.0); %Lymphocytes 7.9 % (21.0-51.0); %Monocytes 7.8 % (0.0-10.0); Hemoglobin 8.9 g/dL (14.0-18.0); Mean Corpuscular HGB CONC 32.2 g/dL (32.0-36.0); Mean Corpuscular Hemoglobin 30.7 pg (27.0-31.0); Mean Corpuscular Volume 95.5 fL (78.0-98.0); Platelet Count 350 thou/uL (130-400); RBC Distribution Width 14.5 % (11.5-14.5); Red Blood Cell (RBC) Count 2.91 mill/uL (4.70-6.10); White Blood Cell (WBC) Count 10.3 thou/uL (4.8-10.8)
[2019-09-23 05:02] LABS: Anion Gap 11 mmol/L (10-20); BUN (Urea Nitrogen) 27 mg/dL (8.4-25.7); Calc. Creatinine Clearance 0 mL/min (70-130); Calcium 8.5 mg/dL (7.8-10.44); Carbon Dioxide 28 mmol/L (23-31); Chloride 100 mmol/L (98-107); Estimated GFR-MDRD 55; Glucose 109 mg/dL (83-110); Potassium 4.1 mmol/L (3.5-5.1); Sodium 135 mmol/L (136-145)
[2019-09-23] MEDS ORDERED: Furosemide 40 MG/4 ML VIAL SLOW IVP SCH (07:15)
[2019-09-23] MEDS ORDERED: Furosemide 40 MG TAB PO SCH (07:30)
[2019-09-23] MEDS: Trospium 20 MG TAB PO SCH ×2 (08:02→21:09)
[2019-09-23] MEDS: Ezetimibe 10 MG TAB PO SCH (08:02)
[2019-09-23] MEDS: Aspirin 81 mg Enteric Coated Tablet PO SCH (08:02)
[2019-09-23] MEDS: Docusate 100 MG CAP PO SCH ×2 (08:03→21:08)
[2019-09-23] MEDS: Famotidine/PF 20 mg/2ml Vial SLOW IVP SCH ×2 (08:03→21:07)
--- NOTE | 2019-09-23 10:02 | CON ---
DATE OF CONSULTATION: HISTORY OF PRESENT ILLNESS: Nickolas Meyer is a 74-year-old white male, patient of Dr. Johns. He underwent cardiac catheterization on August 07, 2019. There was a 60% left main, 60% proximal LAD and the right coronary artery was totally occluded. He was placed on medical therapy and then presented again on September 09 with midsternal chest discomfort. The discomfort radiated to his jaw and the episodes would last several minutes at a time. He then underwent CABG x3 with HARRIS to the LAD, saphenous vein graft to the second obtuse marginal and vein graft to the right posterior descending. Postoperatively, he developed acute kidney injury with creatinine increasing up to 1.93 from his baseline of 1.2. His lisinopril and further diuresis were held. O2 saturations at rest were normal; however, with exertion, his O2 saturations dropped to 78% and so he was sent home with home O2. He was discharged and then presented 2 days later with hematuria and urinary retention secondary to blood clots. He was sent home with a Andres, however, this apparently became occluded and then he saw Dr. Guzman yesterday in her office. He had significant peripheral edema as well as increased shortness of breath and hypoxemia. The patient did not bring his portable oxygen with him. He then was sent to the emergency room for further evaluation. He has been diuresed overnight and feels better. PAST MEDICAL HISTORY: Hypertension, hypercholesterolemia, history of prostate cancer, COPD. PAST SURGICAL HISTORY: CABG, back surgery, cholecystectomy, prostate surgery, iliac stents. MEDICATIONS: 1. Symbicort 2 puffs b.i.d. 2. Aspirin 81 daily. 3. Zetia 10 mg daily. 4. Rosuvastatin 40 daily. 5. Ventolin 2 puffs q.6 hours p.r.n. 6. Omeprazole 40 p.r.n. ALLERGIES: NONE. SOCIAL HISTORY: He smoked 1 pack per day, but stopped 25 years ago. REVIEW OF SYSTEMS: Ten-point review of systems is otherwise unremarkable. PHYSICAL EXAMINATION: VITAL SIGNS: Blood pressure 111/64, pulse of 89. HEENT: PERRL. NECK: Supple. CHEST: Clear. CARDIAC: S1 and S2 normal without any S3, S4, or murmurs. ABDOMEN: Obese. Normal bowel sounds. No tenderness. EXTREMITIES: Revealed 1+ pretibial edema. NEUROLOGICAL: Grossly intact. SKIN: Warm and dry. LABORATORY DATA: I do not see an EKG on the chart. Last chest x-ray was on September 14 with atelectasis of the left lower lobe. The last assessment of left ventricular function that I can find is an echo from the office from May 2019. Ejection fraction was 55% to 60% with borderline left ventricular hypertrophy, diastolic dysfunction, mild mitral regurgitation, and mild tricuspid regurgitation. Hemoglobin 8.9, hematocrit 27.8, white count 10,300, platelets 350,000. Sodium 135, potassium 4.1, chloride 100, carbon dioxide 28, BUN 27, and creatinine 1.28. AST 63, ALT 107, and alkaline phosphatase 156. COVID negative. IMPRESSION: 1. Continued volume overload after coronary artery bypass graft. 2. Acute kidney injury after coronary artery bypass graft with lisinopril being discontinued and also diuresis stopped. His creatinine has since returned to baseline. 3. Status post coronary artery bypass graft x3. 4. Normal left ventricular function on last echo in May 2019. 5. Urinary retention with hematuria and clots. At the present time, his urine is clear. 6. Hyperlipidemia. 7. History of hypertension. 8. Chronic obstructive pulmonary disease. 9. Former smoker. 10. Hypoxemia after bypass surgery with O2 saturation of 78% after ambulating. He was sent home with home oxygen. PLAN: The patient will continue to be diuresed. Daily BMPs need to be obtained. Also chest x-ray will be performed since it has been 8 days since his last x- ray. Echocardiogram will be performed. We will follow the patient with you. Job ID: [id number] MTDD
--- NOTE | 2019-09-23 11:03 | RAD ---
PORTABLE CHEST 1 VIEW: Date: 09/23/2019 Time: 1051 hours HISTORY: Hypoxia. COMPARISON: 09/15/2019. FINDINGS: Changes of median sternotomy again seen. Heart size stable. Lungs are well expanded without focal are as of consolidation, pneumothoraces, tex pulmonary edema, or pleural effusions. IMPRESSION: No acute process. POS: FREDY
--- NOTE | 2019-09-23 11:36 | PDOC.HOSPP ---
- Subjective Encounter Date: 09/23/19 Encounter Time: 10:15 Subjective: pt up in bed no complains - Objective Vital Signs & Weight: Vital Signs (12 hours) Temp Pulse Resp BP Pulse Ox 09/23/19 07:58 98 F 89 16 111/64 95 09/23/19 05:14 98.0 F 95 20 135/101 H 98 Weight Weight 258 lb 11.2 oz I&O: 09/22/19 09/23/19 09/24/19 06:59 06:59 06:59 Intake Total 3055 Output Total 5225 Balance -2170 Result Diagrams: 09/23/19 04:15 09/23/19 04:14 Hospitalist ROS - Review of Systems Respiratory: denies: cough, dry, shortness of breath, hemoptysis, SOB with excertion, pleuritic pain, sputum, wheezing, other Cardiovascular: denies: chest pain, palpitations, orthopnea, paroxysmal noc. dyspnea, edema, light headedness, other Gastrointestinal: denies: nausea, vomiting, abdominal pain, diarrhea, constipation, melena, hematochezia, other Genitourinary: denies: dysuria, frequency, incontinence, hematuria, retention, other - Medication Medications: Active Medications Generic Name Dose Route Start Last Admin Trade Name Freq PRN Reason Stop Dose Admin Aspirin 81 mg 09/23/19 09:00 09/23/19 08:02 Ecotrin PO 81 mg DAILY NIKA Administration Docusate Sodium 100 mg 09/22/19 21:00 09/23/19 08:03 Colace PO 100 mg BID NIKA Administration Ezetimibe 10 mg 09/23/19 09:00 09/23/19 08:02 Zetia PO 10 mg DAILY NIKA Administration Enoxaparin Sodium 40 mg 09/22/19 21:00 09/22/19 21:23 Lovenox SC 40 mg 2100 NIKA Administration Famotidine 20 mg 09/22/19 21:00 09/23/19 08:03 Pepcid SLOW IVP 20 mg Q12HR NIKA Administration Ceftriaxone Sodium 1 gm/ 100 mls @ 200 mls/hr 09/22/19 17:00 09/22/19 17:25 Sodium Chloride IVPB 100 mls 1700 NIKA Administration Nortriptyline HCl 50 mg 09/22/19 21:00 09/22/19 21:24 Pamelor PO Not Given HS NIKA Pantoprazole Sodium 40 mg 09/23/19 09:00 09/23/19 08:03 Protonix PO 40 mg DAILY NIKA Administration Rosuvastatin Calcium 40 mg 09/22/19 21:00 09/22/19 21:23 Crestor PO 40 mg HS NIKA Administration Sodium Chloride 10 ml 09/22/19 15:55 09/23/19 08:03 Flush - Normal Saline IVF 10 ml PRN PRN Administration Saline Flush Trospium 20 mg 09/22/19 21:00 09/23/19 08:02 Trospium PO 20 mg BID NIKA Administration - Exam Neck: negative: supple, symmetric, no JVD, no thyromegaly, no lymphadenopathy, no carotid bruit, JVD Heart: negative: RRR, no murmur, no gallops, no rubs, normal peripheral pulses, irregular, diminshed peripheral pulses, murmur present, II/IV, III/IV Heart - other findings: sternum scar noted Respiratory: negative: CTAB, no wheezes, no rales, no ronchi, normal chest expansion, no tachypnea, normal percussion, rales, rhonchi, tachypneic, wheezes Gastrointestinal: soft, normal bowel sounds Gastrointestinal - other findings: obese Hosp A/P (1) Hematuria Code(s): R31.9 - HEMATURIA, UNSPECIFIED Status: Acute (2) Status post coronary artery bypass graft Code(s): Z95.1 - PRESENCE OF AORTOCORONARY BYPASS GRAFT Status: Acute (3) COPD (chronic obstructive pulmonary disease) Status: Chronic Qualifiers: (4) Obesity (BMI 30-39.9) Code(s): E66.9 - OBESITY, UNSPECIFIED Status: Chronic - Plan pt was sent from urology office for hypoxia and he continued to have hematuria. He was started on cbi and currently his urine is pink tinged. will give him one dose of lasix iv and will continue his home meds. I spoke with urology yesterday and she want pt to be here until Wednesday. will continue ceftriaxone. HH is low stable will monitor may need one unit of prbc.
[2019-09-23 12:25] LABS: SARS-CoV-2 MS2 Positive; SARS-CoV-2 N Gene Negative; SARS-CoV-2 S Gene Negative; SARS-CoV-2 orf1ab Negative
[2019-09-23] MEDS: cefTRIAXone\\ROCEPHIN 1 GM in Sodium Chloride 0.9% 100 ML IVPB SCH (17:19)
[2019-09-23] MEDS: Enoxaparin Sodium 40 MG/0.4 ML SYRINGE SC SCH (21:08)
[2019-09-23] MEDS: Nortriptyline HCl 25 MG CAP PO SCH (21:08)
[2019-09-23] MEDS: Rosuvastatin 20 MG TAB PO SCH (21:08)
[2019-09-24 05:03] LABS: Anion Gap 12 mmol/L (10-20); BUN (Urea Nitrogen) 27 mg/dL (8.4-25.7); Calc. Creatinine Clearance 87 mL/min (70-130); Calcium 8.4 mg/dL (7.8-10.44); Carbon Dioxide 26 mmol/L (23-31); Chloride 102 mmol/L (98-107); Estimated GFR-MDRD 57; Glucose 118 mg/dL (83-110); Sodium 136 mmol/L (136-145)
[2019-09-24] MEDS: Docusate 100 MG CAP PO SCH ×2 (08:26→22:12)
[2019-09-24] MEDS: Famotidine/PF 20 mg/2ml Vial SLOW IVP SCH ×2 (08:26→22:12)
[2019-09-24] MEDS: Furosemide 40 MG TAB PO SCH (08:26)
[2019-09-24] MEDS: Trospium 20 MG TAB PO SCH ×2 (08:26→22:12)
[2019-09-24] MEDS: Ezetimibe 10 MG TAB PO SCH (08:26)
[2019-09-24] MEDS: Aspirin 81 mg Enteric Coated Tablet PO SCH (08:26)
--- NOTE | 2019-09-24 10:15 | PRG ---
DATE OF SERVICE: 09/23/2019 SUBJECTIVE: The patient is not having pain at this time. OBJECTIVE: VITAL SIGNS: Stable. T-max 99.0. Physical exam not performed. LABORATORY DATA: Urine is not grossly bloody. Urine culture positive for E coli. Hemoglobin 8.9. IMPRESSION: Hemodynamically stable and hemoglobin not significantly changed from yesterday. His urine culture is positive for E coli and he is currently on ceftriaxone, to which it is sensitive. PLAN: No further recommendations at this time. Job ID: [id number]
[2019-09-24] MEDS ORDERED: Oxybutynin 5 MG TAB PO PRN (10:49)
[2019-09-24 11:12] LABS: Hemoglobin 9.5 g/dL (14.0-18.0); Mean Corpuscular HGB CONC 33.2 g/dL (32.0-36.0); Mean Corpuscular Hemoglobin 31.8 pg (27.0-31.0); Mean Corpuscular Volume 95.7 fL (78.0-98.0); Mean Platelet Volume 7.7 fL (7.4-10.4); Platelet Count 341 thou/uL (130-400); RBC Distribution Width 14.7 % (11.5-14.5); Red Blood Cell (RBC) Count 2.99 mill/uL (4.70-6.10); White Blood Cell (WBC) Count 10.1 thou/uL (4.8-10.8)
[2019-09-24] MEDS: ASCORBIC ACID PO SCH (16:12)
[2019-09-24] MEDS: cefTRIAXone\\ROCEPHIN 1 GM in Sodium Chloride 0.9% 100 ML IVPB SCH (16:44)
--- NOTE | 2019-09-24 18:22 | PDOC.HOSPP ---
- Subjective Encounter Date: 09/24/19 Encounter Time: 09:30 Subjective: The patient states last night he had an episode of severe bladder pain later accompanied by passing three to four clots. He states his catheter required flushing yesterday Otherwise no complaints. States he had CABG 1.5 weeks ago and is on oxygen chronically - Objective Vital Signs & Weight: Vital Signs (12 hours) Temp Pulse Resp BP Pulse Ox 09/24/19 15:44 97.8 F 95 20 125/65 97 09/24/19 11:20 98.7 F 95 18 122/68 95 09/24/19 08:20 97.6 F 96 18 111/67 96 Weight Admit Weight 258 lb 11.2 oz Weight 254 lb 8 oz I&O: 09/23/19 09/24/19 09/25/19 06:59 06:59 06:59 Intake Total 3055 1080 Output Total 5223 1999 Balance -5951 -787 Result Diagrams: 09/24/19 11:00 09/24/19 04:33 Hospitalist ROS - Review of Systems Constitutional: denies: fever, chills - Medication Medications: Active Medications Generic Name Dose Route Start Last Admin Trade Name Bhaskarq PRN Reason Stop Dose Admin Aspirin 81 mg 09/23/19 09:00 09/24/19 08:26 Ecotrin PO 81 mg DAILY NIKA Administration Docusate Sodium 100 mg 09/22/19 21:00 09/24/19 08:26 Colace PO 100 mg BID NIKA Administration Ezetimibe 10 mg 09/23/19 09:00 09/24/19 08:26 Zetia PO 10 mg DAILY NIKA Administration Famotidine 20 mg 09/22/19 21:00 09/24/19 08:26 Pepcid SLOW IVP 20 mg Q12HR NIKA Administration Furosemide 40 mg 09/24/19 07:30 09/24/19 08:26 Lasix PO 40 mg DAILY-AC NIKA Administration Ceftriaxone Sodium 1 gm/ 100 mls @ 200 mls/hr 09/22/19 17:00 09/24/19 16:44 Sodium Chloride IVPB 100 mls 1700 NIKA Administration Nortriptyline HCl 50 mg 09/22/19 21:00 09/23/19 21:08 Pamelor PO 50 mg HS NIKA Administration Pantoprazole Sodium 40 mg 09/23/19 09:00 09/24/19 08:26 Protonix PO 40 mg DAILY NIKA Administration Rosuvastatin Calcium 40 mg 09/22/19 21:00 09/23/19 21:08 Crestor PO 40 mg HS NIKA Administration Sodium Chloride 10 ml 09/22/19 15:55 09/23/19 21:07 Flush - Normal Saline IVF 10 ml PRN PRN Administration Saline Flush Trospium 20 mg 09/22/19 21:00 09/24/19 08:26 Trospium PO 20 mg BID NIKA Administration - Exam General Appearance: NAD, awake alert Eye: PERRL, anicteric sclera ENT: normocephalic atraumatic, no oropharyngeal lesions Neck: no JVD Heart: RRR, no murmur Respiratory: CTAB, no wheezes, no rales, no ronchi Gastrointestinal: soft, non-tender, non-distended, normal bowel sounds Gastrointestinal - other findings: phelps catheter orange in color Extremities: no cyanosis, no clubbing, no edema Skin: normal turgor Neurological: cranial nerve grossly intact, normal sensation to touch, no focal deficits, no new deficit Hosp A/P - Plan ECHO: Ef 45-50%, mild pericardial effusion This is a 74 year old male who presented with hematuria Hematuria with clots - required CBI - Hb has improved to 9.5 - urology is following. Will add oxybutynin for bladder spasms - if no recurrent hematuria in 24 hours, then will d/c Mild E coli UTI - urine culture only 25 to [id number] - continue ceftriaxone Chronic respiratory failure with recent CABG - ECHO showed moderate pericardial effusion - continue home lasix - continue aspirin and statin Anemia - Hb 8.9, stable Dispo: possibly d/c louie
[2019-09-24] MEDS: Mometasone 200 MCG/Formoterol 5 MCG 120 PUFF INHALER INH SCH (18:31)
[2019-09-24] MEDS: Rosuvastatin 20 MG TAB PO SCH (22:11)
[2019-09-24] MEDS: Nortriptyline HCl 25 MG CAP PO SCH (22:20)
[2019-09-25 05:19] LABS: ALT (SGPT) 86 U/L (8-55); AST (SGOT) 49 U/L (5-34); Albumin 3.1 g/dL (3.4-4.8); Alkaline Phosphatase 134 U/L (40-110); Bilirubin, Direct 0.3 mg/dL (0.1-0.3); Bilirubin, Total 0.5 mg/dL (0.2-1.2); Protein, Total 5.8 g/dL (5.8-8.1)
[2019-09-25 05:53] LABS: Chloride 99 mmol/L (98-107); Potassium 4.1 mmol/L (3.5-5.1); Sodium 137 mmol/L (136-145)
[2019-09-25 05:54] LABS: Calcium 8.7 mg/dL (7.8-10.44); Glucose 106 mg/dL (83-110)
[2019-09-25 05:56] LABS: Carbon Dioxide 33 mmol/L (23-31)
[2019-09-25 05:57] LABS: Calc. Creatinine Clearance 88 mL/min (70-130); Estimated GFR-MDRD 56
[2019-09-25 05:58] LABS: BUN (Urea Nitrogen) 23 mg/dL (8.4-25.7)
[2019-09-25 06:06] LABS: Anion Gap 9 mmol/L (10-20)
[2019-09-25 07:00] LABS: Hemoglobin 9.7 g/dL (14.0-18.0); Mean Corpuscular HGB CONC 32.4 g/dL (32.0-36.0); Mean Corpuscular Hemoglobin 31.3 pg (27.0-31.0); Mean Corpuscular Volume 96.4 fL (78.0-98.0); Mean Platelet Volume 7.8 fL (7.4-10.4); Platelet Count 339 thou/uL (130-400); RBC Distribution Width 14.5 % (11.5-14.5); Red Blood Cell (RBC) Count 3.11 mill/uL (4.70-6.10); White Blood Cell (WBC) Count 9.2 thou/uL (4.8-10.8)
[2019-09-25] MEDS: Mometasone 200 MCG/Formoterol 5 MCG 120 PUFF INHALER INH SCH ×2 (07:05→18:56)
--- NOTE | 2019-09-25 07:50 | PRG ---
DATE OF SERVICE: 09/25/2019 SUBJECTIVE: The patient states that his shortness of breath is improved. Denies chest pain. Did require manual irrigation for bladder clots. Medication list reviewed, he was provided Lovenox by hospitalist Wednesday and Wednesday discontinued Wednesday.. OBJECTIVE: VITAL SIGNS: Vital signs are stable. He is afebrile. I's and O's 1180 in, 2300 out. Had one bowel movement. GENERAL: The patient is in no acute distress. HEENT: Unremarkable Heart regular rate Lungs no significant crackles ABDOMEN: Soft. No rigidity. No rebound. : Andres catheter with red-tinged hematuria, CBI tubing without irrigation going. Nursing staff notified regarding CBI fluid, which had run out. I had irrigated at bedside, scant clots evacuated. CBI fluid reconnected. PERTINENT LABORATORY DATA: White count 9, hemoglobin is 9.7, which has been stable since arrival, platelet 339. INR and PTT are grossly unremarkable. Creatinine improved from post-CABG, 1.9 and creatinine today is 1.26. Urine culture demonstrates E coli sensitive to Rocephin, which he remains on IV Rocephin since admission. Echocardiogram over the weekend reviewed, which demonstrates EF of 45% to 50% with diastolic dysfunction. IMPRESSION AND PLAN: 1. Mr. Meyer is a 74-year-old male, recently underwent coronary artery bypass graft earlier this month. 2. History of prostate cancer, pathologic T3, status post radical prostatectomy, bilateral pelvic lymph node dissection followed by adjuvant radiation therapy, prior history of radiation cystitis on prior cystoscopy with no evidence of bladder neck contracture. 3. Recent urinary retention, status post coronary artery bypass grafting, after discharge presented with gross hematuria, subsequently hematuria further exacerbated by traumatic Andres catheter placement. His H and H remained stable, he required manual irrigation over the weekend periodically by nursing staff. His H and H are stable, which is reassuring. The patient cannot be discharged until his urine output remains clear off CBI at minimum 24 hours. As his CBI fluid had run out this morning, it is difficult for me to decipher degree of hematuria off CBI. Bladder irrigation restarted, I will monitor degree of hematuria, and assess for candidacy to hold. If persistent hematuria of concern, I informed the patient that he will require exam under anesthesia. Dr. Johns is his primary can reconditioner. will need to discuss with him if he requires an exam under anesthesia for fulguration of bleed. Continue CBI. Monitor CBC, antispasmodics, and IV Rocephin for UTI Patient on baby aspirin due to recent CABG . please do NOT provide further Lovenox for patient as he presented with gross hematuria and clot retention. Job ID: [id number] MTDD
[2019-09-25 07:51] LABS: Band 9 % (5-11); Eosinophils 3 % (0-10); Lymphocytes 10 % (21-51); MDiff Complete? YES; Monocytes 14 % (0-10); Neutrophil 64 % (42-75); Platelet Morphology Comment Appears Adequate; Polychromasia SLIGHT = 2-3 cells (100X) (0-2/hpf)
--- NOTE | 2019-09-25 08:41 | PRG ---
DATE OF SERVICE: 09/24/2019 CHIEF COMPLAINT: Passage of small clots intermittently since yesterday. He has some discomfort with passage, otherwise doing well. OBJECTIVE: VITAL SIGNS: T-max 98.4, blood pressure 138/82, pulse 82, and respiratory rate 18. GENITOURINARY: Three-way Andres catheter is in place. The current bag is empty and the urine in the Andres drainage bag and the Andres tubing is clear. IMPRESSION: Gross hematuria, resolving. He has had a couple of issues with clots, although now the urine looks clear even on no irrigation. Irrigation has been reinstituted overnight at a slow rate to avoid the issues requiring irrigation at night. His hemoglobin is stable and actually higher today than yesterday. PLAN: Continued catheter drainage. Disconnect CBI when urine has been clear without clot passage for at least 24 [address] Dr[address] Guzman's recommendation. She will resume care on 09/25/2019. Job ID: [id number]
[2019-09-25] MEDS: Aspirin 81 mg Enteric Coated Tablet PO SCH (09:27)
[2019-09-25] MEDS: Ezetimibe 10 MG TAB PO SCH (09:27)
[2019-09-25] MEDS: Docusate 100 MG CAP PO SCH ×2 (09:27→21:40)
[2019-09-25] MEDS: Trospium 20 MG TAB PO SCH ×2 (09:28→21:40)
[2019-09-25] MEDS: Famotidine/PF 20 mg/2ml Vial SLOW IVP SCH (09:28)
[2019-09-25] MEDS: Furosemide 20 MG TAB PO SCH (09:30)
[2019-09-25] MEDS: Furosemide 40 MG TAB PO SCH (09:38)
--- NOTE | 2019-09-25 12:38 | PRG ---
DATE OF SERVICE: 09/25/2019 SUBJECTIVE: Mr. Meyer is doing better. He was diuresed over the weekend. The patient was seen and evaluated as a work-in late last week. I had recommended hospitalization due to increased shortness of breath. He refused at the time. One day later, he was then subsequently admitted. His overall LVEF was estimated at 45% to 50% on 09/23/2019. There was a moderate pericardial effusion present. OBJECTIVE: VITAL SIGNS: Blood pressure 130/64, pulse 97, and temp 98. LUNGS: Crackles bilaterally. HEART: Regular rate and rhythm. ABDOMEN: Soft, nontender, and nondistended. EXTREMITIES: 1+ pitting edema. PERTINENT LABORATORY DATA: Hemoglobin 9.7, hematocrit 30.0, and creatinine 1.26. AST and ALT of 49 and 86. IMPRESSION: 1. Shortness of breath. 2. Coronary artery disease, status post bypass surgery. 3. Pericardial effusion. 4. Hematuria. RECOMMENDATIONS: The patient is currently not on anticoagulation therapy. He has moderate pericardial effusion, will need to be monitored closely. Likely secondary to recent bypass surgery, we will continue to slowly diurese and continue to monitor blood pressure closely. If he develops pulsus paradoxus, I would then consider drainage, but at this point, continue to monitor closely. Job ID: [id number]
[2019-09-25] MEDS: cefTRIAXone\\ROCEPHIN 1 GM in Sodium Chloride 0.9% 100 ML IVPB SCH (16:55)
--- NOTE | 2019-09-25 18:37 | PDOC.HOSPP ---
- Subjective Encounter Date: 09/25/19 Encounter Time: 09:00 Subjective: The patient had another episode of hematuria again this morning. No clots. His bladder spasms have improved. Lovenox discontinued last night - Objective Vital Signs & Weight: Vital Signs (12 hours) Temp Pulse Resp BP Pulse Ox 09/25/19 16:52 98.0 F 96 20 131/74 97 09/25/19 12:05 98.0 F 97 18 130/64 98 09/25/19 09:14 98.2 F 94 20 142/79 H 96 Weight Admit Weight 258 lb 11.2 oz Weight 259 lb I&O: 09/24/19 09/25/19 09/26/19 06:59 06:59 06:59 Intake Total 1080 1580 8000 Output Total 2000 4000 8400 Balance -920 -2420 -400 Result Diagrams: 09/25/19 06:52 09/25/19 04:27 Hospitalist ROS - Review of Systems Constitutional: denies: fever, chills - Medication Medications: Active Medications Generic Name Dose Route Start Last Admin Trade Name Michael PRN Reason Stop Dose Admin Aspirin 81 mg 09/23/19 09:00 09/25/19 09:27 Ecotrin PO 81 mg DAILY NIKA Administration Docusate Sodium 100 mg 09/22/19 21:00 09/25/19 09:27 Colace PO 100 mg BID NIKA Administration Ezetimibe 10 mg 09/23/19 09:00 09/25/19 09:27 Zetia PO 10 mg DAILY NIKA Administration Furosemide 20 mg 09/25/19 09:00 09/25/19 09:30 Lasix PO 20 mg DAILY NIKA Administration Ceftriaxone Sodium 1 gm/ 100 mls @ 200 mls/hr 09/22/19 17:00 09/25/19 16:55 Sodium Chloride IVPB 100 mls 1700 NIKA Administration Mometasone Furoate/Formoterol Fumar 2 puff 09/24/19 18:30 09/25/19 07:05 Dulera 200 Mcg/5 Mcg Inhaler INH 2 puff BID-RT NIKA Administration Nortriptyline HCl 50 mg 09/22/19 21:00 09/24/19 22:20 Pamelor PO 50 mg HS NIKA Administration Pantoprazole Sodium 40 mg 09/23/19 09:00 09/25/19 09:28 Protonix PO 40 mg DAILY NIKA Administration Rosuvastatin Calcium 40 mg 09/22/19 21:00 09/24/19 22:11 Crestor PO 40 mg HS NIKA Administration Sodium Chloride 10 ml 09/22/19 15:55 09/25/19 09:31 Flush - Normal Saline IVF 10 ml PRN PRN Administration Saline Flush Trospium 20 mg 09/22/19 21:00 09/25/19 09:28 Trospium PO 20 mg BID NIKA Administration - Exam General Appearance: NAD, awake alert General - other findings: on 2L of oxygen Eye: PERRL, anicteric sclera ENT: normocephalic atraumatic, no oropharyngeal lesions Neck: no JVD Heart: RRR, no murmur, no gallops, no rubs Respiratory: CTAB, no wheezes, no rales, no ronchi Gastrointestinal: soft, non-tender, non-distended, normal bowel sounds Extremities: no cyanosis, no clubbing, no edema Skin: normal turgor, no lesions, no rashes Neurological: cranial nerve grossly intact, normal sensation to touch, no focal deficits, no new deficit Musculoskeletal: normal tone, normal strength, no muscle wasting Psychiatric: normal affect, normal behavior, A&O x 3, oriented to place Hosp A/P - Plan ECHO: Ef 45-50%, mild pericardial effusion This is a 74 year old male who presented with hematuria Hematuria with clots - has occurred again. Andres catheter irrigated - urology following - CBC stable at 9.7 - recheck another tomorrow Mild E coli UTI - [place] culture only 25 [place] [address]15 - continue ceftriaxone Chronic respiratory failure with recent CABG - ECHO showed moderate pericardial effusion - reduce lasix to 20 mg due to elevated bicarb - continue aspirin and statin Anemia - Hb 9.7 Dispo: dc/ when hematuria has resolved
[2019-09-25] MEDS: Rosuvastatin 20 MG TAB PO SCH (21:40)
[2019-09-25] MEDS: Famotidine 20 MG TAB PO SCH (21:40)
[2019-09-25] MEDS: Nortriptyline HCl 25 MG CAP PO SCH (21:40)
[2019-09-26 04:44] LABS: Anion Gap 11 mmol/L (10-20); BUN (Urea Nitrogen) 16 mg/dL (8.4-25.7); Calc. Creatinine Clearance 81 mL/min (70-130); Calcium 8.8 mg/dL (7.8-10.44); Carbon Dioxide 28 mmol/L (23-31); Chloride 99 mmol/L (98-107); Estimated GFR-MDRD 51; Glucose 110 mg/dL (83-110); Potassium 4.7 mmol/L (3.5-5.1); Sodium 133 mmol/L (136-145)
[2019-09-26] MEDS: Mometasone 200 MCG/Formoterol 5 MCG 120 PUFF INHALER INH SCH ×2 (06:35→18:38)
[2019-09-26 07:34] LABS: #Eosinphils 0.2 thou/uL (0.0-0.7); #Lymphocytes 0.7 thou/uL (1.20-3.40); #Monocytes 0.9 thou/uL (0.11-0.59); #Neutrophils 7.1 thou/uL (1.40-6.50); %Basophils 0.2 % (0.0-1.0); %Lymphocytes 7.4 % (21.0-51.0); %Monocytes 9.8 % (0.0-10.0); %Neutrophils 80.6 % (42.0-75.0); Hemoglobin 10.5 g/dL (14.0-18.0); Mean Corpuscular HGB CONC 33.5 g/dL (32.0-36.0); Mean Corpuscular Hemoglobin 31.8 pg (27.0-31.0); Mean Corpuscular Volume 94.9 fL (78.0-98.0); Mean Platelet Volume 7.7 fL (7.4-10.4); Platelet Count 336 thou/uL (130-400); RBC Distribution Width 14.4 % (11.5-14.5); White Blood Cell (WBC) Count 8.8 thou/uL (4.8-10.8)
--- NOTE | 2019-09-26 08:16 | PRG ---
DATE OF SERVICE: 09/26/2019 SUBJECTIVE: The patient is feeling okay, shortness of breath improved. Vital signs are stable. He is afebrile. His CBI was held this morning per my request, restarted by nursing staff due to red-tinged hematuria. OBJECTIVE: GENERAL: The patient is in no acute distress. HEENT: Grossly unremarkable. HEART: Regular rate. LUNGS: Clear. ABDOMEN: Soft. No rigidity. No rebound. GENITOURINARY: Andres catheter with CBI running at a low rate. I did manually flush his catheter at bedside with no clots. CBI restarted. EXTREMITIES: No cyanosis, clubbing, or edema. PERTINENT LABORATORY DATA: White count of 8.8, hemoglobin stable at 10.5, platelets 236. Renal function; creatinine of 1.37, stable. COVID testing is negative. Urine culture demonstrating Escherichia coli. He remains on Omnicef IV. IMPRESSION AND PLAN: 1. Mr. Meyer is a 74-year-old male with recent history of CABG, discharged without an indwelling Andres catheter, presented to the emergency room with clot retention, gross hematuria. 2. History of prostate cancer, pathologic T3, status post radical prostatectomy, pelvic lymph node dissection, followed by adjuvant RT. 3. Gross hematuria secondary to retention, catheter-related trauma compounding. His H and H are stable, clinically stable. However, the patient continues to be on CBI due to persistent hematuria. I will hold his CBI today, we will monitor the degree of hematuria. If persistent hematuria of concern, in which he has to restart his CBI, I will need to discuss with Cardiology regarding exam under anesthesia and fulguration of bleed, which he is tentatively scheduled for tomorrow. I will reach out to Dr. Johns as his recent echocardiogram demonstrates small pericardial effusion. Continue to hold CBI. Nursing staff to contact me regarding degree of hematuria. Disposition pending as he needs his hematuria resolve prior to final disposition. addendum, persistent hematuria, therefore CBI restarted. Conferenced with cardiology pulmonology patient is cleared to proceed with exam under anesthesia. Patient informed. N.p.o. after midnight Job ID: [id number] [facility] SYSTEMAbigail
[2019-09-26] MEDS: Ezetimibe 10 MG TAB PO SCH (08:30)
[2019-09-26] MEDS: Furosemide 20 MG TAB PO SCH (08:30)
[2019-09-26] MEDS: Aspirin 81 mg Enteric Coated Tablet PO SCH (08:30)
[2019-09-26] MEDS: Docusate 100 MG CAP PO SCH ×2 (08:30→21:24)
[2019-09-26] MEDS: Famotidine 20 MG TAB PO SCH ×2 (08:30→21:24)
[2019-09-26] MEDS: Trospium 20 MG TAB PO SCH ×2 (08:31→21:25)
--- NOTE | 2019-09-26 10:50 | PRG ---
DATE OF SERVICE: 09/26/2019 SUBJECTIVE: Mr. Meyer just got discharged from the hospital after coronary artery bypass grafting surgery and somewhat convoluted hospital course. He was readmitted [facility] with hematuria. He was scheduled to have cystoscopy tomorrow by Dr. Guzman. Dr. Johns called me and asked me to see the patient because he was concerned about his breathing. It should also be noted that the patient has fairly significant pericardial effusion, but no evidence of tamponade. When I interviewed the patient, he is somewhat dysarthric compared to normal, he is saying something that do not seem within his usual personality. OBJECTIVE: VITAL SIGNS: His temperature is 98.4, pulse 94, respirations 14, O2 saturation 96% on 2 L, and blood pressure 119/76. HEENT: Unremarkable. NECK: No adenopathy or JVD. LUNGS: Diminished breath sounds. No wheezing, but he does have some pursed lip breathing. CARDIAC: S1 and S2 muffled. ABDOMEN: Soft. EXTREMITIES: No edema except in his legs. He has a Andres catheter and with bloody urine. LABORATORY DATA: White blood cell count 8.8, hematocrit 31.3, and platelet count 336. Sodium 133, potassium 4.7, chloride 99, CO2 of 28, BUN 16, creatinine 1.4, and glucose 110. ASSESSMENT: 1. Hematuria. 2. Pericardial effusion. 3. Underlying chronic obstructive pulmonary disease. 4. Recent coronary artery bypass grafting surgery. PLAN: 1. I will increase his nebulization therapy. 2. I will check a blood gas to make sure he is not retaining CO2. Further disposition to follow. Job ID: [id number]
[2019-09-26] MEDS ORDERED: Oxybutynin 5 MG TAB PO PRN (11:15)
[2019-09-26] MEDS ORDERED: Senokot S 8.6-50 MG TAB PO PRN (11:15)
[2019-09-26 11:57] LABS: Actual Bicarbonate (HCO3a) 25.9 mEq/L (22-28); Analyzer IN Cardio OR; Base Excess (BEa) 3.3 mEq/L (-2.0 to +3.0); CO2 Tension 32.6 mmHg (35.0-45.0); Calcium, Ionized (arterial) 1.15 mmol/L (1.12-1.30); Carboxyhemoglobin (COHb) 0.1 gm% (0.0-3.0); Hemoglobin (Hb) 11.5 g/dL (14.0-18.0); O2 Tension (PaO2), arterial 129.1 mmHg (> 70.0); Potassium - ABG Lab 4.19 mmol/L (3.70-5.30); pH, Arterial 7.52 (7.35-7.45)
[2019-09-26 12:01] LABS: Puncture Site RRA
--- NOTE | 2019-09-26 15:53 | PDOC.HOSPP ---
- Subjective Encounter Date: 09/26/19 Encounter Time: 08:00 Subjective: The patient states he passed some clots this morning and has recurrent hematuria. No abd spasms, fevers or chills. He states his cardiologists and urologist are deciding whether it is safe to proceed with cystoscopy tomorrow - Objective Vital Signs & Weight: Vital Signs (12 hours) Temp Pulse Pulse Pulse Resp BP BP 09/26/19 15:18 100 16 09/26/19 12:35 97 107/65 09/26/19 11:38 97.5 F L 95 16 09/26/19 11:33 96 16 09/26/19 10:18 97 107 H 131/74 156/75 H 09/26/19 07:34 98.4 F 94 14 09/26/19 04:55 98.4 F 94 19 BP Pulse Ox 09/26/19 15:18 09/26/19 12:35 09/26/19 11:38 113/60 98 09/26/19 11:33 09/26/19 10:18 09/26/19 07:34 119/76 96 09/26/19 04:55 115/75 93 L Weight Admit Weight 258 lb 11.2 oz Weight 257 lb 4.8 oz I&O: 09/25/19 09/26/19 09/27/19 06:59 06:59 06:59 Intake Total 1580 72526 360 Output Total 4000 56057 Balance -2420 -1505 360 Result Diagrams: 09/26/19 07:16 09/26/19 04:00 Hospitalist ROS - Review of Systems Constitutional: denies: fever, chills - Medication Medications: Active Medications Generic Name Dose Route Start Last Admin Trade Name Freq PRN Reason Stop Dose Admin Albuterol/Ipratropium 3 ml 09/26/19 14:30 09/26/19 15:18 Duoneb EZPAP 3 ml [id number] NIKA Administration Aspirin 81 mg 09/23/19 09:00 09/26/19 08:30 Ecotrin PO 81 mg DAILY NIKA Administration Docusate Sodium 100 mg 09/22/19 21:00 09/26/19 08:30 Colace PO 100 mg BID NIKA Administration Ezetimibe 10 mg 09/23/19 09:00 09/26/19 08:30 Zetia PO 10 mg DAILY NIKA Administration Famotidine 20 mg 09/25/19 21:00 09/26/19 08:30 Pepcid PO 20 mg BID NIKA Administration Furosemide 20 mg 09/25/19 09:00 09/26/19 08:30 Lasix PO 20 mg DAILY NIKA Administration Ceftriaxone Sodium 1 gm/ 100 mls @ 200 mls/hr 09/22/19 17:00 09/25/19 16:55 Sodium Chloride IVPB 100 mls 1700 NIKA Administration Mometasone Furoate/Formoterol Fumar 2 puff 09/24/19 18:30 09/26/19 06:35 Dulera 200 Mcg/5 Mcg Inhaler INH 2 puff BID-RT NIKA Administration Nortriptyline HCl 50 mg 09/22/19 21:00 09/25/19 21:40 Pamelor PO 50 mg HS NIKA Administration Pantoprazole Sodium 40 mg 09/23/19 09:00 09/26/19 08:30 Protonix PO 40 mg DAILY NIKA Administration Rosuvastatin Calcium 40 mg 09/22/19 21:00 09/25/19 21:40 Crestor PO 40 mg HS NIKA Administration Sodium Chloride 10 ml 09/22/19 15:55 09/25/19 09:31 Flush - Normal Saline IVF 10 ml PRN PRN Administration Saline Flush Trospium 20 mg 09/22/19 21:00 09/26/19 08:31 Trospium PO 20 mg BID NIKA Administration - Exam General Appearance: NAD, awake alert Eye: PERRL, anicteric sclera ENT: normocephalic atraumatic, no oropharyngeal lesions Neck: no JVD Heart: RRR, no murmur, no gallops, no rubs Respiratory: CTAB, no wheezes, no rales, no ronchi Gastrointestinal: soft, non-tender, non-distended, normal bowel sounds Gastrointestinal - other findings: significant hematuria in phelps catheter Extremities: no cyanosis, no clubbing, no edema Skin: normal turgor, no lesions, no rashes Neurological: cranial nerve grossly intact, normal sensation to touch, no focal deficits, no new deficit Musculoskeletal: normal tone, normal strength, no muscle wasting Psychiatric: normal affect, normal behavior, A&O x 3 Hosp A/P - Plan ECHO: Ef 45-50%, mild pericardial effusion This is a 74 year old male who presented with hematuria Hematuria with clots - persistent. On CBI, IV fluids held this morning by urology to evaluate whether clots will reoccur - urology is deciding about whether to proceed with cystoscopy after discussion with cardiology - CBC stable, continue to trend Mild E coli UTI - urine culture only 25 to [id number] - continue ceftriaxone Chronic respiratory failure with recent CABG - ECHO showed moderate pericardial effusion - reduce lasix to 20 mg due to elevated bicarb - continue aspirin and statin Anemia - Hb 10.5 Dispo: dc/ when hematuria has resolved
[2019-09-26] MEDS: cefTRIAXone\\ROCEPHIN 1 GM in Sodium Chloride 0.9% 100 ML IVPB SCH (18:01)
[2019-09-26] MEDS: Nortriptyline HCl 25 MG CAP PO SCH (21:24)
[2019-09-26] MEDS: Rosuvastatin 20 MG TAB PO SCH (21:25)
[2019-09-27 04:43] LABS: Mean Corpuscular HGB CONC 32.6 g/dL (32.0-36.0); Mean Corpuscular Hemoglobin 30.8 pg (27.0-31.0); Mean Corpuscular Volume 94.5 fL (78.0-98.0); Mean Platelet Volume 7.7 fL (7.4-10.4); Platelet Count 344 thou/uL (130-400); RBC Distribution Width 14.4 % (11.5-14.5); Red Blood Cell (RBC) Count 3.24 mill/uL (4.70-6.10); White Blood Cell (WBC) Count 9.8 thou/uL (4.8-10.8)
[2019-09-27 05:04] LABS: Anion Gap 13 mmol/L (10-20); BUN (Urea Nitrogen) 17 mg/dL (8.4-25.7); Calc. Creatinine Clearance 88 mL/min (70-130); Calcium 8.9 mg/dL (7.8-10.44); Carbon Dioxide 27 mmol/L (23-31); Chloride 99 mmol/L (98-107); Estimated GFR-MDRD 57; Glucose 115 mg/dL (83-110); Potassium 4.1 mmol/L (3.5-5.1); Sodium 135 mmol/L (136-145)
[2019-09-27] MEDS: Mometasone 200 MCG/Formoterol 5 MCG 120 PUFF INHALER INH SCH ×2 (06:59→18:22)
--- NOTE | 2019-09-27 08:09 | PRG ---
DATE OF SERVICE: 09/26/2019 SUBJECTIVE: Mr. Meyer states he is breathing better. He continues to have pursed lip breathing. He has continued diuresis. Blood pressure and heart rate appear stable. OBJECTIVE: VITAL SIGNS: Blood pressure 113/60, pulse 95, temperature 97.5. LUNGS: No significant crackles noted bilaterally. HEART: Regular rate and rhythm. ABDOMEN: Soft, nontender, nondistended. EXTREMITIES: Trace edema. PERTINENT LABORATORY DATA: Hemoglobin 10.5. Creatinine 1.37. IMPRESSION: 1. Shortness of breath. 2. Coronary artery disease. 3. Status post bypass surgery. 4. Peripheral vascular disease. 5. Preoperative clearance. RECOMMENDATIONS: Mr. Meyer is to undergo surgical procedure due to continued hematuria. He will undergo general anesthesia. He appears to have diuresed significantly over the last several days. I have asked Dr. Parviz Lubin to also consult due to underlying COPD. From my standpoint, he would be cleared from a cardiac standpoint, given the fact that he has diuresed and is near his baseline weight. We would like to optimize his lung status as well. He does have a pericardial effusion, but does not appear to be symptomatic. This will likely resolve with time. This is secondary to recent bypass. We will monitor closely for hypotension or pulsus paradoxus. Job ID: [id number]
[2019-09-27] MEDS ORDERED: Midazolam HCl 2 mg/2 ml Vial ONE (10:01)
[2019-09-27] MEDS ORDERED: Famotidine/PF 20 mg/2ml Vial ONE (10:01)
[2019-09-27] MEDS ORDERED: Fentanyl 100 MCG/2 ML VIAL ONE (10:01)
[2019-09-27] MEDS ORDERED: Levofloxacin 500 mg/D5W 100 ml Premix Bag ONE (10:13)
[2019-09-27] MEDS ORDERED: Iothalamate Meglumine 60% 50 ML VIAL FS ONE (10:27)
[2019-09-27] MEDS ORDERED: Promethazine HCl 25 MG/ML VIAL SLOW IVP PRN (10:51)
[2019-09-27] MEDS ORDERED: Promethazine HCl 25 MG/ML VIAL IM PRN (10:51)
[2019-09-27] MEDS ORDERED: Ondansetron HCl/PF 4 MG/2 ML Vial IVP PRN (10:51)
[2019-09-27] MEDS ORDERED: Metoclopramide HCl 10 MG/2 ML VIAL ONE (10:57)
[2019-09-27] MEDS ORDERED: Ondansetron PF 4 MG/2 ML Vial ONE (10:57)
[2019-09-27] MEDS ORDERED: PHENYLEPHRINE-NS 100 MCG/ML 10 ML SYRINGE ONE (10:57)
[2019-09-27] MEDS ORDERED: Lidocaine 1% PF 5 ML VIAL ONE (10:57)
[2019-09-27] MEDS ORDERED: PROPOFOL 200 MG/20 ML VIAL ONE (10:57)
--- NOTE | 2019-09-27 10:59 | RAD ---
RETROGRADE IVP: HISTORY: Two fluoroscopic images are presented from the OR. INDICATION: Intraoperative imaging during retrograde procedure. FINDINGS/IMPRESSION: Both these images show evidence of a wire overlying the region of the urinary bladder. There is no c ontrast opacification of the urinary system on either of these images. POS: AH
--- NOTE | 2019-09-27 12:16 | OP ---
DATE OF PROCEDURE: 09/27/2019 PREOPERATIVE DIAGNOSES: 1. A 74-year-old male with history of prostate cancer, status post radical prostatectomy, adjuvant RT. 2. Recent CABG with postop urinary retention, with gross hematuria. 3. Subsequent catheter trauma. POSTOPERATIVE DIAGNOSES: 1. A 74-year-old male with history of prostate cancer, status post radical prostatectomy, adjuvant RT. 2. Recent CABG with postop urinary retention, with gross hematuria. 3. Subsequent catheter trauma. PROCEDURES PERFORMED: Cystoscopy, evacuation of clots, fulguration of bleed at the bladder neck, complex Andres catheter placement over guidewire 22-Swedish 30 mL to gravity, 20 mL instilled into the balloon. ANESTHESIA: LMA. COMPLICATIONS: None apparent. SPECIMEN: None. DISPOSITION: To recovery room in stable condition. INTRAOPERATIVE FINDINGS: 1. No evidence of vesicourethral anastomotic stricture. 2. 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 3. Oozing, bleeding source at the level of the bladder neck, likely due to catheter-related trauma. No bladder tumors or stones. INDICATIONS FOR PROCEDURE AND HISTORY: Mr. Meyer is a 74-year-old pleasant male, who underwent CABG recently. I did as a courtesy visit to place a 16-Swedish Andres catheter preoperatively without significant issues. He underwent CABG, had a protracted hospital stay, discharged without an indwelling Andres catheter. He subsequently presented to emergency room after his discharge as he presented with urinary retention of 400 mL with gross hematuria. Subsequently, a 20-Swedish Andres catheter was attempted in the ER with no success, subsequent 16-Swedish Andres catheter was placed. I did perform a cystoscopy in the office as he has persistent hematuria, which demonstrated catheter-related trauma at the level of the bladder neck, visualization was poor as he was having clot retention and gross hematuria in the local. Catheter at that time was placed over guidewire and was monitored with CBI. He has had no significant decrease in anemia of concern, requiring blood transfusion, however, require CBI due to persistent hematuria, requiring manual irrigation periodically. Therefore, he presents today for diagnostic cystoscopy, fulguration of bleed. He has been cleared by Cardiology and Pulmonology. DESCRIPTION OF PROCEDURE: After an informed consent was signed, the patient was taken to the operating room, placed in dorsal lithotomy position with the genital area prepped and draped in the usual surgical sterile fashion. A 21-Swedish cystoscope was utilized for cystoscopy after his indwelling Andres catheter was removed. At the level of the vesicourethral anastomosis, I was able to see the anastomosis clearly with no evidence of bladder neck contracture. Bladder was entered. There was a small clot within the bladder about 30 to 40 mL, which was Ellik evacuated. The bladder was surveyed with a 30-degree and a 70-degree lens. The UOs were well away from the anastomosis. There were somewhat subtle inside, however, we were able to visualize them bilaterally. There was intermittent areas of telangiectasia consistent with radiation cystitis. However, I did not see any source of active bleeding from the bladder mucosa. We pulled the scope back to the level of the anastomosis and at the level of the anastomosis at 3 o'clock, 11 o'clock, and 4 o'clock position, there was some oozing from the anastomotic site, likely due to catheter-related trauma and prior history of urinary retention. Using a gyrus bipolar, resectoscope 24-Swedish, we passed this with a visual obturator, which passed without significant issues to the level of the bladder. Using a bladder loop, I gently fulgurated the areas that was oozing. As he does have history of radiation cystitis, even despite fulguration, they tend to ooze. We gently cauterized the area, and at the end of the procedure, I did not see any further oozing from the bladder neck site longer. A 0.035 Super Stiff wire was placed at the level of the bladder and a 22-Swedish 3-way Andres catheter was placed through the guidewire assist, 20 mL insufflated. CBI tubing attached demonstrating clear output at a low rate. We will continue to monitor him on CBI, and continue broad-spectrum antibiotics as he presented with E coli UTI. Job ID: [id number]
[2019-09-27] MEDS: Aspirin 81 mg Enteric Coated Tablet PO SCH (12:23)
[2019-09-27] MEDS: Ezetimibe 10 MG TAB PO SCH (12:23)
[2019-09-27] MEDS: Docusate 100 MG CAP PO SCH ×2 (12:23→21:08)
[2019-09-27] MEDS: Furosemide 20 MG TAB PO SCH (12:23)
[2019-09-27] MEDS: Trospium 20 MG TAB PO SCH ×2 (12:23→21:09)
[2019-09-27] MEDS: Famotidine 20 MG TAB PO SCH ×2 (12:29→21:08)
--- NOTE | 2019-09-27 12:29 | PRG ---
DATE OF SERVICE: 09/27/2019 SUBJECTIVE: The patient is doing well post cystoscopy. He is in his usual good humour. OBJECTIVE: VITAL SIGNS: His temperature is 98.9, pulse 100, respirations 15, O2 saturation 95% on 2 L, blood pressure 139/81. HEENT: Unremarkable. NECK: No adenopathy or JVD. CHEST: Clear. CARDIAC: S1 and S2. Regular. ABDOMEN: Soft. EXTREMITIES: No edema. LABORATORY DATA: White blood cell count 9.8, hematocrit 30, and platelet count 344. Sodium 135, potassium 4.1, BUN 17, creatinine 1.2, and glucose 115. ASSESSMENT: 1. Stable chronic obstructive pulmonary disease. 2. Status post coronary artery bypass grafting surgery. 3. Hematuria. 4. Pericardial effusion. PLAN: Continue mobilization therapy and increase activity as tolerated. Job ID: [id number]
--- NOTE | 2019-09-27 14:07 | PRG ---
DATE OF SERVICE: 09/27/2019 SUBJECTIVE: Mr. Meyer continues to slowly improve. He states his shortness of breath continues to improve. He was seen and evaluated by Dr. Parviz Lubin yesterday with changes in his pulmonary support. He has continued to diurese. OBJECTIVE: VITAL SIGNS: Blood pressure 139/81, pulse 100, temperature 98.9. LUNGS: No crackles noted bilaterally. HEART: Regular rate and rhythm. ABDOMEN: Soft, nontender, nondistended. EXTREMITIES: No edema. PERTINENT LABORATORY DATA: Hemoglobin 10.0. Creatinine 1.25. IMPRESSION: 1. Coronary artery disease. 2. Status post bypass surgery. 3. Acute on chronic diastolic heart failure. 4. Chronic obstructive pulmonary disease. 5. Pericardial effusion. RECOMMENDATION: Mr. Meyer appears to be doing well. He has had significant diuresis with close to 10-pound weight loss during his admission. He will need to have a low-risk procedure to assess his bleeding issue. The patient is felt to be low risk. Blood pressure and heart rate appear stable. The patient has been changed to p.o. Lasix. Continue aspirin in addition to Crestor. Job ID: [id number]
--- NOTE | 2019-09-27 15:30 | PDOC.HOSPP ---
- Subjective Encounter Date: 09/27/19 Encounter Time: 07:30 Subjective: THe patient states he is doing well. He was noted to have red hematuria again this morning. He denies dizziness or lightheadedness. There is plan for cystoscopy today He denies cough or SOB He was getting irrigated again today - Objective Vital Signs & Weight: Vital Signs (12 hours) Temp Pulse Resp BP Pulse Ox 09/27/19 14:52 99 16 09/27/19 07:42 98.9 F 100 15 139/81 95 09/27/19 07:40 95 09/27/19 07:01 98 16 09/27/19 04:27 98.2 F 100 20 104/67 96 Weight Admit Weight 258 lb 11.2 oz Weight 257 lb 4.8 oz I&O: 09/26/19 09/27/19 09/28/19 06:59 06:59 06:59 Intake Total 91515 2527 Output Total 93162 65232 Balance -7952 -90285 Result Diagrams: 09/27/19 04:28 09/27/19 04:28 Hospitalist ROS - Review of Systems Constitutional: denies: fever, chills - Medication Medications: Active Medications Generic Name Dose Route Start Last Admin Trade Name Freq PRN Reason Stop Dose Admin Albuterol/Ipratropium 3 ml 09/26/19 14:30 09/27/19 14:52 Duoneb EZPAP 3 ml [id number] NIKA Administration Aspirin 81 mg 09/23/19 09:00 09/27/19 12:23 Ecotrin PO 81 mg DAILY NIKA Administration Docusate Sodium 100 mg 09/22/19 21:00 09/27/19 12:23 Colace PO 100 mg BID NIKA Administration Ezetimibe 10 mg 09/23/19 09:00 09/27/19 12:23 Zetia PO 10 mg DAILY NIKA Administration Famotidine 20 mg 09/25/19 21:00 09/27/19 12:29 Pepcid PO 20 mg BID NIKA Administration Furosemide 20 mg 09/25/19 09:00 09/27/19 12:23 Lasix PO 20 mg DAILY NIKA Administration Ceftriaxone Sodium 1 gm/ 100 mls @ 200 mls/hr 09/22/19 17:00 09/26/19 18:01 Sodium Chloride IVPB 100 mls 1700 NIKA Administration Mometasone Furoate/Formoterol Fumar 2 puff 09/24/19 18:30 09/27/19 06:59 Dulera 200 Mcg/5 Mcg Inhaler INH 2 puff BID-RT NIKA Administration Nortriptyline HCl 50 mg 09/22/19 21:00 09/26/19 21:24 Pamelor PO 50 mg HS NIKA Administration Pantoprazole Sodium 40 mg 09/23/19 09:00 09/27/19 12:23 Protonix PO 40 mg DAILY NIKA Administration Rosuvastatin Calcium 40 mg 09/22/19 21:00 09/26/19 21:25 Crestor PO 40 mg HS NIKA Administration Sodium Chloride 10 ml 09/22/19 15:55 09/25/19 09:31 Flush - Normal Saline IVF 10 ml PRN PRN Administration Saline Flush Trospium 20 mg 09/22/19 21:00 09/27/19 12:23 Trospium PO 20 mg BID NIKA Administration - Exam General Appearance: NAD, awake alert Eye: PERRL, anicteric sclera ENT: normocephalic atraumatic, no oropharyngeal lesions Neck: no JVD Heart: RRR, no murmur, no gallops, no rubs Respiratory: CTAB, no wheezes, no rales, no ronchi Gastrointestinal: soft Gastrointestinal - other findings: abdomen distended. Phelps catheter in place with hematuria Extremities: no cyanosis, no clubbing, no edema Skin: normal turgor, no lesions, no rashes Neurological: cranial nerve grossly intact, normal sensation to touch, no focal deficits, no new deficit Musculoskeletal: normal tone, normal strength, no muscle wasting Psychiatric: normal affect, normal behavior, A&O x 3 Hosp A/P - Plan ECHO: Ef 45-50%, mild pericardial effusion This is a 74 year old male who presented with hematuria #Hematuria with clots possibliy from radiation cystitis vs trauma #Acute blood loss anemia - patient underwent cystoscopy with evacuation of clots, fulguration of bleed at bladder neck, complex phelps placement - he was noted to have radiation cystitis and trauma from phelps catheter. [address] phelps catheter was placed toda - Hb remains stable today Mild E coli UTI - urine culture only 25 to [id number] - continue ceftriaxone Chronic respiratory failure with recent CABG - ECHO showed moderate pericardial effusion -continue lasix to 20 mg due to elevated bicarb - continue aspirin and statin Anemia - Hb 10.5 Dispo: re-evaluate hematuria in am
[2019-09-27] MEDS: cefTRIAXone\\ROCEPHIN 1 GM in Sodium Chloride 0.9% 100 ML IVPB SCH (18:04)
[2019-09-27] MEDS: Nortriptyline HCl 25 MG CAP PO SCH (21:08)
[2019-09-27] MEDS: Rosuvastatin 20 MG TAB PO SCH (21:08)
[2019-09-28 04:17] LABS: #Eosinphils 0.1 thou/uL (0.0-0.7); #Lymphocytes 0.8 thou/uL (1.20-3.40); #Neutrophils 7.2 thou/uL (1.40-6.50); %Basophils 0.1 % (0.0-1.0); %Eosinophils 1.5 % (0.0-10.0); %Lymphocytes 8.7 % (21.0-51.0); %Monocytes 10.5 % (0.0-10.0); %Neutrophils 79.3 % (42.0-75.0); Hemoglobin 9.9 g/dL (14.0-18.0); Mean Corpuscular HGB CONC 33.6 g/dL (32.0-36.0); Mean Corpuscular Hemoglobin 31.7 pg (27.0-31.0); Mean Corpuscular Volume 94.5 fL (78.0-98.0); Mean Platelet Volume 7.4 fL (7.4-10.4); Platelet Count 317 thou/uL (130-400); RBC Distribution Width 14.4 % (11.5-14.5); Red Blood Cell (RBC) Count 3.13 mill/uL (4.70-6.10); White Blood Cell (WBC) Count 9.1 thou/uL (4.8-10.8)
[2019-09-28 04:46] LABS: Anion Gap 11 mmol/L (10-20); BUN (Urea Nitrogen) 19 mg/dL (8.4-25.7); Calc. Creatinine Clearance 82 mL/min (70-130); Calcium 8.5 mg/dL (7.8-10.44); Carbon Dioxide 27 mmol/L (23-31); Chloride 99 mmol/L (98-107); Estimated GFR-MDRD 52; Glucose 110 mg/dL (83-110); Potassium 4.3 mmol/L (3.5-5.1); Sodium 133 mmol/L (136-145)
[2019-09-28] MEDS: Mometasone 200 MCG/Formoterol 5 MCG 120 PUFF INHALER INH SCH ×2 (08:16→18:31)
[2019-09-28] MEDS: Furosemide 20 MG TAB PO SCH (08:51)
[2019-09-28] MEDS: Aspirin 81 mg Enteric Coated Tablet PO SCH (08:51)
[2019-09-28] MEDS: Docusate 100 MG CAP PO SCH ×2 (08:51→20:56)
[2019-09-28] MEDS: Ezetimibe 10 MG TAB PO SCH (08:52)
[2019-09-28] MEDS: Famotidine 20 MG TAB PO SCH ×2 (08:52→20:56)
[2019-09-28] MEDS: Trospium 20 MG TAB PO SCH ×2 (08:52→20:56)
--- NOTE | 2019-09-28 09:13 | PRG ---
DATE OF SERVICE: 09/28/2019 SUBJECTIVE: Patient is doing well without discomfort. Denies chest pain. Baseline pursing of the lip dyspnea on conversation. OBJECTIVE: VITAL SIGNS: Stable. GENERAL: The patient is in no acute distress. HEART: Regular rate. LUNGS: Clear. ABDOMEN: Morbidly obese. : His CBI was held at 5:00 a.m. per my request demonstrating bel pink tinged urine. There is a small clot in the tubing which we flushed with no further hematuria of concern. Since his CBI has been held, it is bel pink tinged. EXTREMITIES: No cyanosis, clubbing, or edema. PERTINENT LABORATORY DATA: White count is 9, hemoglobin 9.9, creatinine is 1.3. IMPRESSION AND PLAN: 1. Mr. Meyer is a 74-year-old male with history of prostate cancer, status post radical prostatectomy, bilateral pelvic lymph node dissection, status post adjuvant RT. 2. History of radiation cystitis. 3. Recent history of CABG, presented to emergency room with retention of 400 mL with gross hematuria. Subsequent Andres catheter placement, which caused further hematuria as there is evidence of bladder neck trauma on prior cystoscopy. Postop day #1, status post cysto, fulguration of bladder neck, trigone region, replacement of Andres catheter. We will continue to hold the CBI, if his CBI remains relatively clear in the next 24 hours, I will remove his catheter tomorrow for a voiding trial in hopes that we can discharge the patient without an indwelling Andres catheter. The patient informed. Job ID: [id number] MTDD
[2019-09-28 13:08] VITALS: BMI 34.6
--- NOTE | 2019-09-28 15:31 | PRG ---
DATE OF SERVICE: 09/28/2019 SUBJECTIVE: Mr. Meyer is doing much better today. He recently underwent surgery and cauterization and did well. Unfortunately, his I's and O's and weights have been not accurate. He does appear closer to being euvolemic. He states he is close to baseline. His weight is 255. OBJECTIVE: VITAL SIGNS: Blood pressure 120/70, pulse 98, respirations 20. LUNGS: Rhonchi and rales bilaterally. HEART: Regular rate and rhythm. ABDOMEN: Soft, nontender, nondistended. EXTREMITIES: No edema. PERTINENT LABORATORY DATA: Hemoglobin 9.9. Creatinine 1.34, sodium 133, AST and ALT of 49 and 86. IMPRESSION: 1. Acute on chronic diastolic heart failure. 2. Coronary artery disease. 3. Status post bypass surgery. 4. Moderate pericardial effusion. RECOMMENDATIONS: 1. We will continue close observation of the pericardial effusion. We will likely repeat echo in a few weeks to make sure effusion is diminishing. This is secondary to recent bypass. He appears to be hemodynamically stable. 2. We will continue Lasix 20 q.a.m. 3. Avoid beta-margarita therapy due to history of asthma. 4. The patient is close to discharge. Job ID: [id number]
[2019-09-28] MEDS: cefTRIAXone\\ROCEPHIN 1 GM in Sodium Chloride 0.9% 100 ML IVPB SCH (16:27)
--- NOTE | 2019-09-28 17:04 | PDOC.HOSPP ---
- Subjective Encounter Date: 09/28/19 Encounter Time: 12:00 Subjective: The patient continued to have some hematuria this morning .He had no abd pain, no bladder spasms. Patient was groggy when I evaluated him and states he was in the middle of a nap - Objective Vital Signs & Weight: Vital Signs (12 hours) Temp Pulse Resp BP Pulse Ox 09/28/19 15:21 98.1 F 102 H 18 98/69 96 09/28/19 14:50 98 16 09/28/19 12:10 100 121/70 09/28/19 11:28 98.3 F 100 19 89/65 L 99 09/28/19 10:23 99 16 09/28/19 08:13 96 16 95 09/28/19 08:12 98.0 F 96 18 107/66 94 L Weight Admit Weight 258 lb 11.2 oz Weight 255 lb 4.8 oz I&O: 09/27/19 09/28/19 09/29/19 06:59 06:59 06:59 Intake Total 252 3700 Output Total 83941 8349 Balance -52671 -8251 Result Diagrams: 09/28/19 03:58 09/28/19 03:58 Hospitalist ROS - Review of Systems Constitutional: denies: fever, chills - Medication Medications: Active Medications Generic Name Dose Route Start Last Admin Trade Name Michael PRN Reason Stop Dose Admin Albuterol/Ipratropium 3 ml 09/26/19 14:30 09/28/19 14:50 Duoneb EZPAP 3 ml [id number] NIKA Administration Aspirin 81 mg 09/23/19 09:00 09/28/19 08:51 Ecotrin PO 81 mg DAILY NIKA Administration Docusate Sodium 100 mg 09/22/19 21:00 09/28/19 08:51 Colace PO 100 mg BID NIKA Administration Ezetimibe 10 mg 09/23/19 09:00 09/28/19 08:52 Zetia PO 10 mg DAILY NIKA Administration Famotidine 20 mg 09/25/19 21:00 09/28/19 08:52 Pepcid PO 20 mg BID NIKA Administration Furosemide 20 mg 09/25/19 09:00 09/28/19 08:51 Lasix PO 20 mg DAILY NIKA Administration Ceftriaxone Sodium 1 gm/ 100 mls @ 200 mls/hr 09/22/19 17:00 07/23/20 16:27 Sodium Chloride IVPB 100 mls 1700 NIKA Administration Mometasone Furoate/Formoterol Fumar 2 puff 09/24/19 18:30 09/28/19 08:16 Dulera 200 Mcg/5 Mcg Inhaler INH 2 puff BID-RT NIKA Administration Nortriptyline HCl 50 mg 09/22/19 21:00 09/27/19 21:08 Pamelor PO 50 mg HS NIKA Administration Pantoprazole Sodium 40 mg 09/23/19 09:00 09/28/19 08:52 Protonix PO 40 mg DAILY NIKA Administration Rosuvastatin Calcium 40 mg 09/22/19 21:00 09/27/19 21:08 Crestor PO 40 mg HS NIKA Administration Sodium Chloride 10 ml 09/22/19 15:55 09/25/19 09:31 Flush - Normal Saline IVF 10 ml PRN PRN Administration Saline Flush Trospium 20 mg 09/22/19 21:00 09/28/19 08:52 Trospium PO 20 mg BID NIKA Administration - Exam General Appearance: NAD, awake alert Eye: PERRL, anicteric sclera ENT: normocephalic atraumatic, no oropharyngeal lesions ENT - other findings: on nasal cannula Neck: supple, symmetric, no JVD Heart: RRR, no murmur, no gallops Respiratory: CTAB, no wheezes, no rales, no ronchi Gastrointestinal: soft, non-tender, non-distended, normal bowel sounds, no palpable masses Extremities: no cyanosis, no clubbing, no edema Hosp A/P - Plan ECHO: Ef 45-50%, mild pericardial effusion This is a 74 year old male who presented with hematuria #Hematuria with clots possibly from radiation cystitis vs trauma #Acute blood loss anemia - patient underwent cystoscopy with evacuation of clots, fulguration of bleed at bladder neck, complex phelps placement - he was noted to have radiation cystitis and trauma from phelps catheter. [address] way phelps catheter was placed - Hb stable at 9.9 Mild E coli UTI - urine culture only 25 to [id number] - continue ceftriaxone day 6, d/c after one day Chronic respiratory failure with recent CABG - ECHO showed moderate pericardial effusion. Per cardiology , plan to repeat ECHO in a few weeks -continue lasix 20 mg daily - continue aspirin and statin Dispo: pending stabilization of hematuria
[2019-09-28] MEDS: Nortriptyline HCl 25 MG CAP PO SCH (20:55)
[2019-09-28] MEDS: Rosuvastatin 20 MG TAB PO SCH (20:56)
[2019-09-29 05:03] LABS: Anion Gap 10 mmol/L (10-20); BUN (Urea Nitrogen) 16 mg/dL (8.4-25.7); Calc. Creatinine Clearance 87 mL/min (70-130); Calcium 8.7 mg/dL (7.8-10.44); Carbon Dioxide 30 mmol/L (23-31); Chloride 99 mmol/L (98-107); Estimated GFR-MDRD 56; Glucose 116 mg/dL (83-110); Potassium 4.1 mmol/L (3.5-5.1); Sodium 135 mmol/L (136-145)
[2019-09-29] MEDS: Mometasone 200 MCG/Formoterol 5 MCG 120 PUFF INHALER INH SCH (07:00)
--- NOTE | 2019-09-29 08:09 | PRG ---
DATE OF SERVICE: SUBJECTIVE: The patient is feeling well. Vital signs are stable. CBI has been held since yesterday, demonstrating bel yellow urine. No clots seen in the tubing. OBJECTIVE: GENERAL: The patient is in no acute distress. HEENT: Grossly unremarkable. HEART: Regular rate. LUNGS: Clear. ABDOMEN: Morbidly obese, soft, nondistended. : Andres catheter demonstrating bel clear urine. I filled him to capacity to the CBI port and Andres catheter removed atraumatically. EXTREMITIES: No cyanosis or clubbing; trace edema. LABORATORY DATA: Creatinine is 1.26. Previous urine culture demonstrated E coli, on IV Rocephin, pansensitive. IMPRESSION: 1. Mr. Meyer is a 74-year-old male with recent coronary artery bypass graft, postoperative urinary retention. 2. Prior history of preoperative Andres catheter placement uneventfully with a 18-[place] Citizen. 3. Presented with postoperative urinary retention with gross hematuria. 4. History of radiation cystitis. 5. Traumatic Andres catheter placement, postop day #2, status post cystoscopy, evacuation of clots, fulguration of bleed at the trigone, bladder neck. His CBI has been held since yesterday, with bel yellow urine. Catheter removed, voiding trial initiated. Discontinue trospium, Ditropan for antispasmodics. We will monitor his urine output, for degree of hematuria and urinary retention. Nursing staff advised regarding strict I's and O's, keep serial urine at the bedside and check PVR. I will recheck his status this afternoon, if no significant hematuria of concern, with no PVR, the patient will be cleared to be discharged with home, home health and outpatient cardiac rehab. The patient may be discharged after successful voiding trial after reassessment. When discharged, I would recommend he be discharged with ciprofloxacin 500 mg one p.o. b.i.d. for a course of three more days, no antispasmodics as he presented with urinary retention recently. We will provide outpatient followup appointment. addendum. Rounded this afternoon, patient has voided multiple times, with urine output clear bel-yellow. Multiple PVR check with no significant postvoid residual of concern. Discussed with hospitalist, he will be discharged this afternoon with home health, cardiac rehab. Has follow-up appointment with me in the next 2 weeks to recheck his voiding status recommend antibiotics as above. No anticholinergics advised due to recent urinary retention Job ID: [id number] MTDD
[2019-09-29] MEDS: Docusate 100 MG CAP PO SCH (08:23)
[2019-09-29] MEDS: Ezetimibe 10 MG TAB PO SCH (08:23)
[2019-09-29] MEDS: Aspirin 81 mg Enteric Coated Tablet PO SCH (08:23)
[2019-09-29] MEDS: Famotidine 20 MG TAB PO SCH (08:23)
[2019-09-29] MEDS: Furosemide 20 MG TAB PO SCH (08:24)
--- NOTE | 2019-09-29 09:06 | PRG ---
DATE OF SERVICE: 09/29/2019 SUBJECTIVE: Mr. Meyer is doing very well today. He has had significant diuresis. He is down to 245 after more accurate I's and O's and weights. His blood pressure also appears stable. OBJECTIVE: VITAL SIGNS: 137/76, pulse 104, respirations 20. LUNGS: Minimal rhonchi, rales. HEART: Regular rate and rhythm. ABDOMEN: Soft, nontender, nondistended. EXTREMITIES: No edema. PERTINENT LABORATORY DATA: Hemoglobin 9.9, creatinine 1.26. IMPRESSION: 1. Acute on chronic diastolic heart failure. 2. Pericardial effusion. 3. Hematuria. 4. Coronary artery disease. 5. Status post bypass surgery. RECOMMENDATIONS: Mr. Meyer is currently doing very well. It would be okay from my standpoint to discharge home. We will continue the following CV medications: 1. Aspirin 81 q.a.m. 2. Zetia 10 daily. 3. Crestor 40 at bedtime. 4. Lasix 20 daily. 5. We will avoid beta-margarita therapy due to asthma. Followup in the office in 1 to 2 weeks. Job ID: [id number]
[2019-09-29 15:49] VITALS: BP 111/70; TEMP 98.1
--- NOTE | 2019-09-30 02:13 | DIS ---
DATE OF ADMISSION: 09/25/2019 DATE OF DISCHARGE: 09/29/2019 DISCHARGE DIAGNOSES: 1. Hematuria, status post evacuation of clots and fulguration of bleed with history of radiation cystitis. 2. Acute blood loss anemia. 3. Chronic respiratory failure, status post recent CABG with pericardial effusion. 4. Mild Escherichia coli urinary tract infection. BRIEF HISTORY OF PRESENT ILLNESS: This is a 74-year-old male with a past medical history of recent CABG 2 weeks ago, who presented to the emergency room due to urinary retention, hematuria, and penile pain. The patient presented to the emergency room with further workup. HOSPITAL COURSE: Hematuria: The patient was seen by Urology. He did require irrigation with a CBI. He was monitored in the hospital with serial CBCs. He continued to have recurrent hematuria after discontinuation of his blood thinners. He underwent cystoscopy on 09/26 with progression of bleed and evacuation of bladder clots. He was thereafter monitored for 1 more day and had no further hematuria. His Andres catheter was removed. His hemoglobin has remained stable at 9.9. He did have a urine culture, which showed 25,000 to 75,000 colonies of Escherichia coli. He did receive ceftriaxone for 6 days. He will be discharged with cefdinir for an additional 3 days to complete a 10-day course of antibiotics per Dr. Guzman. He will follow up with Dr. Guzman on October 09 at 1 p.m. Chronic respiratory failure with recent CABG and moderate pericardial effusion: The patient underwent an echo, which showed a moderate pericardial effusion. He was initially placed on Lasix 40 mg daily, however, developed a contraction alkalosis with a bicarb of 33. His Lasix was reduced to 20 mg daily. He will follow up with Dr. Johns in 1-2 weeks. Transaminitis: Patient presented with elevated LFTs with AST of 63 and an ALT of 107. After restarting his Lasix, his LFTs improved with an AST of 49 and ALT of 86. He should have repeat LFTs done in a week with his PCP. DISCHARGE PHYSICAL EXAMINATION: VITAL SIGNS: Temperature 98.2, heart rate 100, respiratory rate 16, O2 saturation 96% on 2 L nasal cannula. GENERAL: The patient is alert, awake, and oriented x3. CVS: Regular rate and rhythm with no murmurs, rubs, or gallops. LUNGS: Clear to auscultation bilaterally. ABDOMEN: Mildly distended. He has positive bowel sounds. There is no tenderness. : His urine still was noted to have orange urine. EXTREMITIES: No edema. DIAGNOSTIC STUDIES: PERTINENT LABORATORY DATA: 1. CBC on 09/27: White count 9.1, hemoglobin 9.9, hematocrit 29.6, platelet count 317. 2. BMP on 09/28: Shows a normal sodium of 135. Rest of BMP unremarkable. 3. LFT on 09/24: AST 49, ALT 86, alkaline phosphatase 34. 4. COVID PCR on 09/21: Negative. IMAGING: Echo on 09/22: Shows EF of 45% to 50%. Mild MR. Mild TR. Diastolic dysfunction. Moderate pericardial effusion. DISCHARGE CONDITION: Stable. ACTIVITY: As tolerated. DIET: Heart healthy diet with a 2 L fluid restriction. DISCHARGE MEDICATIONS: 1. Cefdinir 300 mg p.o. q.12. 2. Lasix 20 mg p.o. daily. All other home medications were resumed. Please refer to discharge worksheet. DISCHARGE INSTRUCTIONS: Patient is to follow up with his PCP in a week and have repeat LFTs done in a week. Also consider repeat CBC for evaluation of resolution of hematuria. Follow up with Dr. Johns in 1-2 weeks, and follow up with Dr. Guzman on October 09. Job ID: [id number]
== END 2019-09-29 16:30 | disposition home health service (06) | DRG 662 ==
LOC: 2NO 15:34 → OBSVTOIN 09-25 18:39
PROVIDERS: ADMIT Internal Medicine; ATTEND Internal Medicine
PROC: 0W3R8ZZ Control Bleeding in Genitourinary Tract, Via Natural or Artificial Opening Endoscopic (ICD-10-PCS; principal; 2019-09-27)
PROC: 0TCC8ZZ Extirpation of Matter from Bladder Neck, Via Natural or Artificial Opening Endoscopic (ICD-10-PCS; 2019-09-27)
PROC: BT141ZZ Fluoroscopy of Kidneys, Ureters and Bladder using Low Osmolar Contrast (ICD-10-PCS; 2019-09-27)
PROC: 0T9B80Z Drainage of Bladder with Drainage Device, Via Natural or Artificial Opening Endoscopic (ICD-10-PCS; 2019-09-27)
DX: T83.83XA Hemorrhage due to genitourinary prosthetic devices, implants and grafts, initial encounter (principal); I50.33 Acute on chronic diastolic (congestive) heart failure; D62 Acute posthemorrhagic anemia; J96.11 Chronic respiratory failure with hypoxia; N17.9 Acute kidney failure, unspecified; N30.41 Irradiation cystitis with hematuria; I31.3 Pericardial effusion (noninflammatory); B96.20 Unspecified Escherichia coli [E. coli] as the cause of diseases classified elsewhere; E78.00 Pure hypercholesterolemia, unspecified; I25.10 Atherosclerotic heart disease of native coronary artery without angina pectoris; J44.9 Chronic obstructive pulmonary disease, unspecified; E66.9 Obesity, unspecified; I11.0 Hypertensive heart disease with heart failure; Y84.6 Urinary catheterization as the cause of abnormal reaction of the patient, or of later complication, without mention of misadventure at the time of the procedure; Z95.1 Presence of aortocoronary bypass graft; Z90.49 Acquired absence of other specified parts of digestive tract; Z79.51 Long term (current) use of inhaled steroids; Z79.82 Long term (current) use of aspirin; Z79.899 Other long term (current) drug therapy; Z87.891 Personal history of nicotine dependence; Z68.33 Body mass index [BMI] 33.0-33.9, adult; Z85.46 Personal history of malignant neoplasm of prostate
CPT/HCPCS: 36415; 71045; 74420; 80048; 80053; 80076; 82805; 85025; 85027; 86850; 86900; 86901; 87635; 93005; 93010; 93306; 94640; J0696; J1650; J1940; J1956; J2250; J2405; J2704; J2765; J3010; J3490; J7620; S0028; U0003

== ENCOUNTER 2021-09-09 12:25 | Outpatient (CLI) | payer MEDICARE, OTHER ==
[~2021-09-09 12:25] MED LIST changes: +Iopamidol 370 76% 100 ML VIAL ONE; -Iopamidol-370 76% 500 ML 1 ML ONE
== END 2021-09-09 12:26 | disposition home or self-care (01) ==
LOC: BICCT 12:25
PROVIDERS: ATTEND Urology
DX: C61 Malignant neoplasm of prostate (principal); R31.0 Gross hematuria; N32.81 Overactive bladder; K57.30 Diverticulosis of large intestine without perforation or abscess without bleeding
CPT/HCPCS: 74178; 82565

== ENCOUNTER 2021-10-16 11:40 | Outpatient (CLI) | payer MEDICARE, OTHER ==
[2021-10-16 12:39] LABS: #Basophils 0.1 10x3/uL (0.0-0.2); #Eosinphils 0.3 10x3/uL (0.0-0.5); #Monocytes 0.8 10x3/uL (0.0-1.1); #Neutrophils 6.2 10x3/uL (1.5-8.4); %Basophils 0.7 % (0.0-2.0); %Eosinophils 2.9 % (0.0-6.0); %Lymphocytes 13.5 % (18.0-47.0); %Monocytes 9.4 % (0.0-10.0); %Neutrophils 73.3 % (40.0-75.0); Hemoglobin 16.2 g/dL (13.5-17.5); Mean Corpuscular HGB CONC 33.4 g/dL (32.0-36.0); Mean Corpuscular Hemoglobin 30.9 pg (27.0-33.0); Mean Corpuscular Volume 92.6 fl (81.2-95.1); Mean Platelet Volume 11.1 fl (7.4-10.4); Platelet Count 269 10x3/uL (150-450); RBC Distribution Width 15.8 % (11.5-14.5); Red Blood Cell (RBC) Count 5.24 10x6/uL (4.32-5.72); White Blood Cell (WBC) Count 8.5 10x3/uL (3.5-10.5)
[2021-10-16 12:57] LABS: INR-International Normal Ratio 0.9; PTT 25.3 sec (22.0-33.0); Prothrombin Time 10.3 sec (9.5-12.1)
[2021-10-16 13:03] LABS: Anion Gap 14 mmol/L (10-20); BUN (Urea Nitrogen) 25 mg/dL (8.4-25.7); Calc. Creatinine Clearance 0 mL/min (70-130); Calcium 9.4 mg/dL (7.8-10.44); Carbon Dioxide 27 mmol/L (23-31); Chloride 104 mmol/L (98-107); Estimated GFR 62; Glucose 105 mg/dL (83-110); Potassium 4.5 mmol/L (3.5-5.1); Sodium 140 mmol/L (136-145)
== END 2021-10-16 11:41 | disposition home or self-care (01) ==
LOC: LABBT 11:40
PROVIDERS: ATTEND Urology
DX: Z01.818 Encounter for other preprocedural examination (principal); Z20.822 Contact with and (suspected) exposure to COVID-19
CPT/HCPCS: 80048; 85025; 85610; 85730; 87811; 93005; 93010

== ENCOUNTER 2021-10-19 21:54 | Emergency (ER) | payer MEDICARE, OTHER ==
[2021-10-20] LABS: #Eosinphils 0.3 thou/uL (0.0-0.7); #Lymphocytes 1.2 thou/uL (1.20-3.40); #Neutrophils 9.2 thou/uL (1.40-6.50); %Basophils 0.4 % (0.0-1.0); %Eosinophils 2.4 % (0.0-10.0); %Lymphocytes 10.2 % (21.0-51.0); %Monocytes 8.6 % (0.0-10.0); %Neutrophils 78.4 % (42.0-75.0); Hemoglobin 16.5 g/dL (14.0-18.0); Mean Corpuscular HGB CONC 33.9 g/dL (32.0-36.0); Mean Corpuscular Hemoglobin 32.4 pg (27.0-31.0); Mean Corpuscular Volume 95.6 fL (78.0-98.0); Mean Platelet Volume 9.1 fL (7.4-10.4); Platelet Count 232 thou/uL (130-400); RBC Distribution Width 14.9 % (11.5-14.5); Red Blood Cell (RBC) Count 5.09 mill/uL (4.70-6.10); White Blood Cell (WBC) Count 11.8 thou/uL (4.8-10.8)
[2021-10-20 00:21] LABS: ALT (SGPT) 22 U/L (8-55); AST (SGOT) 18 U/L (5-34); Albumin 4.1 g/dL (3.4-4.8); Alkaline Phosphatase 80 U/L (40-110); Anion Gap 15 mmol/L (10-20); BUN (Urea Nitrogen) 23 mg/dL (8.4-25.7); Bilirubin, Total 0.8 mg/dL (0.2-1.2); Calc. Creatinine Clearance 0 mL/min (70-130); Calcium 9.4 mg/dL (7.8-10.44); Carbon Dioxide 21 mmol/L (23-31); Chloride 104 mmol/L (98-107); Estimated GFR 62; Globulin 3.1 g/dL (2.4-3.5); Glucose 102 mg/dL (83-110); Potassium 4.4 mmol/L (3.5-5.1); Protein, Total 7.2 g/dL (5.8-8.1); Sodium 136 mmol/L (136-145)
== END 2021-10-20 01:22 | disposition home or self-care (01) ==
LOC: ERS 21:54
DX: T83.091A Other mechanical complication of indwelling urethral catheter, initial encounter (principal); R31.9 Hematuria, unspecified; E78.5 Hyperlipidemia, unspecified; I10 Essential (primary) hypertension; G47.33 Obstructive sleep apnea (adult) (pediatric); J44.9 Chronic obstructive pulmonary disease, unspecified; I25.10 Atherosclerotic heart disease of native coronary artery without angina pectoris; E11.42 Type 2 diabetes mellitus with diabetic polyneuropathy; F17.220 Nicotine dependence, chewing tobacco, uncomplicated
CPT/HCPCS: 36415; 80053; 85025

== ENCOUNTER 2021-10-20 07:36 | Day surgery (SDC) | payer MEDICARE, OTHER ==
[2021-10-17 10:15] VITALS: BMI 32.1
[~2021-10-20 07:36] MED LIST changes: -Iopamidol 370 76% 100 ML VIAL ONE; +Triamcinolone 40 MG/ML VIAL IJ SCH
[2021-10-20] MEDS ORDERED: Triamcinolone 40 MG/ML VIAL ONE (11:08)
[2021-10-20] MEDS ORDERED: Fentanyl 100 MCG/2 ML VIAL ONE (11:13)
[2021-10-20] MEDS ORDERED: Famotidine/PF 20 mg/2ml Vial ONE (11:13)
[2021-10-20] MEDS ORDERED: Levofloxacin 500 mg/D5W 100 ml Premix Bag ONE (11:23)
[2021-10-20] MEDS ORDERED: Ondansetron PF 4 MG/2 ML Vial ONE (11:31)
[2021-10-20] MEDS ORDERED: ePHEDrine 50 MG/ML VIAL ONE (11:31)
[2021-10-20] MEDS ORDERED: Lidocaine 1% PF 5 ML VIAL ONE (11:31)
[2021-10-20] MEDS ORDERED: Metoclopramide HCl 10 MG/2 ML VIAL ONE (11:31)
[2021-10-20] MEDS ORDERED: PROPOFOL 200 MG/20 ML VIAL ONE (11:31)
[2021-10-20] MEDS ORDERED: Phenazopyridine HCl 100 MG TAB ONE (12:22)
[2021-10-20] MEDS ORDERED: Oxybutynin 5 MG TAB ONE (12:23)
== END 2021-10-20 13:48 | disposition home or self-care (01) ==
LOC: SDC 07:36
PROVIDERS: ATTEND Urology
PROC: 0T7D8ZZ Dilation of Urethra, Via Natural or Artificial Opening Endoscopic (ICD-10-PCS; principal; 2021-10-20)
PROC: 3E0K8GC Introduction of Other Therapeutic Substance into Genitourinary Tract, Via Natural or Artificial Opening Endoscopic (ICD-10-PCS; 2021-10-20)
DX: N35.912 Unspecified bulbous urethral stricture, male (principal); N30.41 Irradiation cystitis with hematuria; K21.9 Gastro-esophageal reflux disease without esophagitis; I10 Essential (primary) hypertension; E78.00 Pure hypercholesterolemia, unspecified; I25.10 Atherosclerotic heart disease of native coronary artery without angina pectoris; J44.9 Chronic obstructive pulmonary disease, unspecified; F17.290 Nicotine dependence, other tobacco product, uncomplicated; Z85.46 Personal history of malignant neoplasm of prostate; Z79.82 Long term (current) use of aspirin; Z79.899 Other long term (current) drug therapy; Z95.1 Presence of aortocoronary bypass graft
CPT/HCPCS: 36415; 80053; 85025; 99283; J1956; J2405; J2704; J2765; J3010; J3301; J3490; S0028

== ENCOUNTER 2022-04-20 19:30 | Outpatient (CLI) | payer MEDICARE, OTHER | END 2022-04-20 19:31 | disposition home or self-care (01) | LOC: SLEEPLAB 19:30 | PROVIDERS: ATTEND Internal Medicine Critical Care Medicine | DX: G47.33 Obstructive sleep apnea (adult) (pediatric) (principal); R06.83 Snoring; J44.9 Chronic obstructive pulmonary disease, unspecified | CPT/HCPCS: 95811 ==

== ENCOUNTER 2022-12-07 07:15 | Inpatient (IN) | payer MEDICARE, OTHER ==
[2022-12-07 08:21] LABS: #Basophils 0.1 thou/uL (0.0-0.2); #Eosinphils 0.1 thou/uL (0.0-0.7); #Monocytes 1.2 thou/uL (0.11-0.59); #Neutrophils 10.1 thou/uL (1.40-6.50); %Basophils 0.6 % (0.0-1.0); %Lymphocytes 7.7 % (21.0-51.0); %Monocytes 9.3 % (0.0-10.0); Hematocrit 53.3 % (42.0-52.0); Hemoglobin 18.3 g/dL (14.0-18.0); Mean Corpuscular HGB CONC 34.3 g/dL (32.0-36.0); Mean Corpuscular Hemoglobin 31.1 pg (27.0-31.0); Mean Corpuscular Volume 90.6 fl (78.0-98.0); Mean Platelet Volume 11.3 fL (7.4-10.4); Platelet Count 287 10x3/uL (130-400); RBC Distribution Width 17.5 % (11.5-14.5); Red Blood Cell (RBC) Count 5.88 mill/uL (4.70-6.10); White Blood Cell (WBC) Count 12.5 10x3/uL (4.8-10.8)
[2022-12-07 08:41] LABS: PTT 32.8 sec (22.9-36.1); Prothrombin Time 13.7 sec (12.0-14.7)
[2022-12-07 08:45] LABS: ALT (SGPT) 21 U/L (8-55); AST (SGOT) 21 U/L (5-34); Albumin 4.3 g/dL (3.4-4.8); Alkaline Phosphatase 86 U/L (40-110); Anion Gap 17 mmol/L (10-20); BUN (Urea Nitrogen) 21 mg/dL (8.4-25.7); Bilirubin, Total 1.1 mg/dL (0.2-1.2); Calc. Creatinine Clearance 0 mL/min (70-130); Calcium 9.9 mg/dL (7.8-10.44); Carbon Dioxide 21 mmol/L (23-31); Chloride 105 mmol/L (98-107); Estimated GFR 62; Globulin 3.6 g/dL (2.4-3.5); Glucose 116 mg/dL (83-110); Potassium 4.1 mmol/L (3.5-5.1); Protein, Total 7.9 g/dL (5.8-8.1); Sodium 139 mmol/L (136-145)
[2022-12-07] MEDS ORDERED: LevoFLOXacin 500 mg/D5W 100 ML BAG ONE (10:53)
[2022-12-07] MEDS ORDERED: Ondansetron PF 4 MG/2 ML Vial IVP PRN (11:33)
[2022-12-07] MEDS ORDERED: Acetaminophen 325 MG TAB PO PRN (11:33)
[2022-12-07] MEDS ORDERED: Ondansetron ODT 4 MG TAB PO PRN (11:33)
[2022-12-07] MEDS ORDERED: HYDROcodone/Acetaminophen 5/325 mg Tablet PO PRN (11:33)
[2022-12-07 11:42] LABS: Bilirubin Unable to Interpret (Negative); Blood, Urine Unable to Interpret (Negative); Clarity Hazy (Clear); Glucose, Urine (Dipstick) Unable to Interpret mg/dL (Negative); Ketone, Urine Unable to Interpret mg/dL (Negative); Leukocyte Unable to Interpret Leu/uL (Negative); Nitrite Unable to Interpret (Negative); Protein, Urine (Dipstick) Unable to Interpret mg/dL (Neg-Trace); Urobilinogen UNABLE TO INTERPRET mg/dL (Less than 2); pH, Urine 5.5 (5.0-9.0)
[2022-12-07 11:44] LABS: Bacteria/HPF 4+ HPF (None Seen); CAUTI Indications for Culture Pelvic or flank pain; RBC/HPF Greater than 50 HPF (0-3); Squamous Epithelial None Seen HPF (0-3)
[2022-12-07 11:46] LABS: Urine Culture Reflex No No
[2022-12-07] MEDS: Hyoscyamine SL 0.125 MG TAB PO SCH ×2 (17:20→20:11)
[2022-12-07] MEDS: Rosuvastatin 20 MG TAB PO SCH (20:11)
[2022-12-07] MEDS: Gabapentin 100 MG CAP PO SCH (20:11)
[2022-12-07] MEDS: Amlodipine 5 MG TAB PO SCH (20:11)
[2022-12-07 21:04] VITALS: BMI 29.8
[2022-12-08] MEDS: Hyoscyamine SL 0.125 MG TAB PO SCH ×7 (01:25→21:49)
[2022-12-08 05:59] LABS: #Basophils 0.1 thou/uL (0.0-0.2); #Eosinphils 0.1 thou/uL (0.0-0.7); #Monocytes 1.3 thou/uL (0.11-0.59); #Neutrophils 11.2 thou/uL (1.40-6.50); %Basophils 0.4 % (0.0-1.0); %Eosinophils 0.7 % (0.0-10.0); %Lymphocytes 6.6 % (21.0-51.0); %Monocytes 9.3 % (0.0-10.0); %Neutrophils 82.5 % (42.0-75.0); Hematocrit 46.6 % (42.0-52.0); Hemoglobin 15.7 g/dL (14.0-18.0); Mean Corpuscular HGB CONC 33.7 g/dL (32.0-36.0); Mean Corpuscular Hemoglobin 30.8 pg (27.0-31.0); Mean Corpuscular Volume 91.4 fl (78.0-98.0); Mean Platelet Volume 10.7 fL (7.4-10.4); Platelet Count 277 10x3/uL (130-400); RBC Distribution Width 17.2 % (11.5-14.5); White Blood Cell (WBC) Count 13.6 10x3/uL (4.8-10.8)
[2022-12-08] MEDS ORDERED: LevoFLOXacin 500 mg/D5W 100 ML BAG ONE (07:01)
[2022-12-08] MEDS ORDERED: fentaNYL 50 mcg/mL 1 mL Vial ONE ×3 (07:11→08:54)
[2022-12-08 07:26] LABS: Chloride 102 mmol/L (98-107); Potassium 4.2 mmol/L (3.5-5.1); Sodium 133 mmol/L (136-145)
[2022-12-08 07:27] LABS: Anion Gap 12 mmol/L (10-20); BUN (Urea Nitrogen) 24 mg/dL (8.4-25.7); Calc. Creatinine Clearance 66 mL/min (70-130); Calcium 9.1 mg/dL (7.8-10.44); Carbon Dioxide 23 mmol/L (23-31); Estimated GFR 54; Glucose 107 mg/dL (83-110)
[2022-12-08] MEDS ORDERED: Iopamidol 0 ML ONE (07:27)
[2022-12-08] MEDS ORDERED: Sodium Chloride 0.9% 100 ML ONE (07:29)
[2022-12-08] MEDS ORDERED: cefTRIAXone (ROCEPHIN) 2 GM VIAL ONE (07:29)
[2022-12-08] MEDS ORDERED: PROPOFOL 200 MG/20 ML VIAL ONE (07:36)
[2022-12-08] MEDS ORDERED: Ondansetron PF 4 MG/2 ML Vial ONE (07:36)
[2022-12-08] MEDS ORDERED: Lidocaine 1% PF 5 ML VIAL ONE (07:36)
[2022-12-08] MEDS ORDERED: Rocuronium Bromide 10 MG/ML (10ML VIAL) ONE (07:36)
[2022-12-08] MEDS ORDERED: SUGAMMADEX SODIUM 200 MG/2 ML VIAL ONE (08:14)
[2022-12-08] MEDS ORDERED: Mag-Al 1200 mg/1200 mg/30 ML UDCUP PO PRN (08:36)
[2022-12-08] MEDS ORDERED: Promethazine HCl 25 MG/ML VIAL IM PRN (08:39)
[2022-12-08] MEDS ORDERED: Ondansetron HCl/PF 4 MG/2 ML Vial IVP PRN (08:39)
[2022-12-08] MEDS ORDERED: Furosemide 20 MG TAB PO SCH (09:00)
[2022-12-08] MEDS ORDERED: Lisinopril 20 MG TAB PO SCH (09:00)
[2022-12-08] MEDS: Docusate 100 MG CAP PO SCH ×2 (09:51→21:41)
[2022-12-08] MEDS: HYDROcodone/Acetaminophen 5/325 mg Tablet PO PRN ×2 (09:52→21:39)
[2022-12-08] MEDS ORDERED: LevoFLOXacin 500 mg/D5W 500 MG in Premix 1 BAG IVPB SCH (10:30)
[2022-12-08] MEDS: Mometasone 100 MCG/Formoterol 5 MCG 120 PUFF INHALER INH SCH (18:44)
[2022-12-08] MEDS: Sodium Chloride 0.9% 1,000 ML IV SCH ×2 (21:39)
[2022-12-08] MEDS: Amlodipine 5 MG TAB PO SCH (21:40)
[2022-12-08] MEDS: Gabapentin 100 MG CAP PO SCH (21:40)
[2022-12-08] MEDS: Rosuvastatin 20 MG TAB PO SCH (21:40)
[2022-12-09] MEDS: Hyoscyamine SL 0.125 MG TAB PO SCH ×6 (01:30→20:17)
[2022-12-09 05:06] LABS: #Basophils 0.1 thou/uL (0.0-0.2); #Eosinphils 0.2 thou/uL (0.0-0.7); #Monocytes 1.4 thou/uL (0.11-0.59); #Neutrophils 10.3 thou/uL (1.40-6.50); %Basophils 0.5 % (0.0-1.0); %Eosinophils 1.7 % (0.0-10.0); %Monocytes 10.7 % (0.0-10.0); %Neutrophils 78.5 % (42.0-75.0); Hematocrit 41.9 % (42.0-52.0); Hemoglobin 14.1 g/dL (14.0-18.0); Mean Corpuscular HGB CONC 33.7 g/dL (32.0-36.0); Mean Corpuscular Hemoglobin 31.6 pg (27.0-31.0); Mean Corpuscular Volume 93.9 fl (78.0-98.0); Mean Platelet Volume 10.8 fL (7.4-10.4); Platelet Count 246 10x3/uL (130-400); RBC Distribution Width 17.2 % (11.5-14.5); Red Blood Cell (RBC) Count 4.46 mill/uL (4.70-6.10); White Blood Cell (WBC) Count 13.1 10x3/uL (4.8-10.8)
[2022-12-09 05:36] LABS: Anion Gap 13 mmol/L (10-20); BUN (Urea Nitrogen) 33 mg/dL (8.4-25.7); Calc. Creatinine Clearance 56 mL/min (70-130); Calcium 8.4 mg/dL (7.8-10.44); Carbon Dioxide 22 mmol/L (23-31); Chloride 104 mmol/L (98-107); Estimated GFR 44; Glucose 110 mg/dL (83-110); Potassium 4.3 mmol/L (3.5-5.1); Sodium 135 mmol/L (136-145)
[2022-12-09] MEDS: Mometasone 100 MCG/Formoterol 5 MCG 120 PUFF INHALER INH SCH ×2 (06:42→19:27)
[2022-12-09] MEDS ORDERED: LevoFLOXacin 500 mg/D5W 500 MG in Premix 1 BAG IVPB SCH (08:00)
[2022-12-09] MEDS: Docusate 100 MG CAP PO SCH ×2 (08:31→20:10)
[2022-12-09] MEDS: Sodium Chloride 0.9% 1,000 ML IV SCH (08:35)
[2022-12-09] MEDS ORDERED: Lisinopril 20 MG TAB PO SCH (09:00)
[2022-12-09] MEDS ORDERED: Furosemide 20 MG TAB PO SCH (09:00)
[2022-12-09] MEDS ORDERED: Carboprost 250 MCG/ML AMP IM SCH (13:00)
[2022-12-09] MEDS: HYDROcodone/Acetaminophen 5/325 mg Tablet PO PRN ×2 (14:00→20:10)
[2022-12-09] MEDS: cefTRIAXone\\ROCEPHIN 1 GM in Sodium Chloride 0.9% 100 ML IVPB SCH (17:14)
[2022-12-09] MEDS: Rosuvastatin 20 MG TAB PO SCH (20:08)
[2022-12-09] MEDS: Amlodipine 5 MG TAB PO SCH (20:08)
[2022-12-09] MEDS: Gabapentin 100 MG CAP PO SCH (20:09)
[2022-12-10] MEDS: Sodium Chloride 0.9% 1,000 ML IV SCH ×2 (01:38→09:45)
[2022-12-10] MEDS: Hyoscyamine SL 0.125 MG TAB PO SCH ×7 (01:38→20:43)
[2022-12-10 03:40] LABS: #Basophils 0.1 thou/uL (0.0-0.2); #Eosinphils 0.4 thou/uL (0.0-0.7); #Monocytes 1.5 thou/uL (0.11-0.59); #Neutrophils 10.3 thou/uL (1.40-6.50); %Basophils 0.4 % (0.0-1.0); %Eosinophils 2.7 % (0.0-10.0); %Lymphocytes 7.9 % (21.0-51.0); %Monocytes 11.1 % (0.0-10.0); %Neutrophils 77.2 % (42.0-75.0); Hematocrit 40.2 % (42.0-52.0); Hemoglobin 13.5 g/dL (14.0-18.0); Mean Corpuscular HGB CONC 33.6 g/dL (32.0-36.0); Mean Corpuscular Hemoglobin 31.1 pg (27.0-31.0); Mean Corpuscular Volume 92.6 fl (78.0-98.0); Mean Platelet Volume 10.9 fL (7.4-10.4); Platelet Count 244 10x3/uL (130-400); RBC Distribution Width 16.9 % (11.5-14.5); Red Blood Cell (RBC) Count 4.34 mill/uL (4.70-6.10); White Blood Cell (WBC) Count 13.4 10x3/uL (4.8-10.8)
[2022-12-10 04:09] LABS: Anion Gap 13 mmol/L (10-20); BUN (Urea Nitrogen) 29 mg/dL (8.4-25.7); Calc. Creatinine Clearance 66 mL/min (70-130); Calcium 8.5 mg/dL (7.8-10.44); Carbon Dioxide 24 mmol/L (23-31); Chloride 103 mmol/L (98-107); Estimated GFR 54; Glucose 112 mg/dL (83-110); Sodium 136 mmol/L (136-145)
[2022-12-10] MEDS: Mometasone 100 MCG/Formoterol 5 MCG 120 PUFF INHALER INH SCH ×2 (07:28→18:36)
[2022-12-10] MEDS ORDERED: Carboprost 250 MCG/ML AMP IM SCH ×2 (08:00→13:30)
[2022-12-10] MEDS: Docusate 100 MG CAP PO SCH ×2 (09:34→20:42)
[2022-12-10] MEDS: HYDROcodone/Acetaminophen 5/325 mg Tablet PO PRN ×2 (11:19→20:47)
[2022-12-10] MEDS: cefTRIAXone\\ROCEPHIN 1 GM in Sodium Chloride 0.9% 100 ML IVPB SCH (15:54)
[2022-12-10] MEDS: Amlodipine 5 MG TAB PO SCH (20:40)
[2022-12-10] MEDS: Gabapentin 100 MG CAP PO SCH (20:42)
[2022-12-10] MEDS: Rosuvastatin 20 MG TAB PO SCH (20:44)
[2022-12-11] MEDS: Sodium Chloride 0.9% 1,000 ML IV SCH ×4 (00:13→14:26)
[2022-12-11] MEDS: Hyoscyamine SL 0.125 MG TAB PO SCH ×6 (01:00→21:27)
[2022-12-11 05:16] LABS: Hematocrit 39.3 % (42.0-52.0); Hemoglobin 13.2 g/dL (14.0-18.0); Mean Corpuscular HGB CONC 33.6 g/dL (32.0-36.0); Mean Corpuscular Hemoglobin 31.1 pg (27.0-31.0); Mean Corpuscular Volume 92.7 fl (78.0-98.0); Mean Platelet Volume 10.6 fL (7.4-10.4); Platelet Count 251 10x3/uL (130-400); Red Blood Cell (RBC) Count 4.24 mill/uL (4.70-6.10); White Blood Cell (WBC) Count 10.9 10x3/uL (4.8-10.8)
[2022-12-11 05:41] LABS: Anion Gap 11 mmol/L (10-20); BUN (Urea Nitrogen) 22 mg/dL (8.4-25.7); Calc. Creatinine Clearance 87 mL/min (70-130); Calcium 8.8 mg/dL (7.8-10.44); Carbon Dioxide 23 mmol/L (23-31); Chloride 104 mmol/L (98-107); Estimated GFR 75; Glucose 99 mg/dL (83-110); Potassium 4.3 mmol/L (3.5-5.1); Sodium 134 mmol/L (136-145)
[2022-12-11] MEDS: Mometasone 100 MCG/Formoterol 5 MCG 120 PUFF INHALER INH SCH ×2 (06:48→18:46)
[2022-12-11] MEDS: Polyethylene Glycol 3350 17 GM Packet PO SCH (10:45)
[2022-12-11] MEDS: Docusate 100 MG CAP PO SCH ×2 (10:45→21:24)
[2022-12-11] MEDS: HYDROcodone/Acetaminophen 5/325 mg Tablet PO PRN ×2 (17:25→21:25)
[2022-12-11] MEDS: cefTRIAXone\\ROCEPHIN 1 GM in Sodium Chloride 0.9% 100 ML IVPB SCH (17:25)
[2022-12-11] MEDS: Gabapentin 100 MG CAP PO SCH (21:24)
[2022-12-11] MEDS: Rosuvastatin 20 MG TAB PO SCH (21:24)
[2022-12-11] MEDS: Amlodipine 5 MG TAB PO SCH (21:24)
[2022-12-12] MEDS: Hyoscyamine SL 0.125 MG TAB PO SCH ×6 (01:09→21:11)
[2022-12-12 04:00] LABS: #Eosinphils 0.3 thou/uL (0.0-0.7); #Monocytes 0.9 thou/uL (0.11-0.59); #Neutrophils 6.9 thou/uL (1.40-6.50); %Basophils 0.4 % (0.0-1.0); %Eosinophils 3.6 % (0.0-10.0); %Lymphocytes 8.9 % (21.0-51.0); %Monocytes 9.5 % (0.0-10.0); Hematocrit 37.5 % (42.0-52.0); Hemoglobin 12.8 g/dL (14.0-18.0); Mean Corpuscular HGB CONC 34.1 g/dL (32.0-36.0); Mean Corpuscular Hemoglobin 31.5 pg (27.0-31.0); Mean Corpuscular Volume 92.4 fl (78.0-98.0); Platelet Count 252 10x3/uL (130-400); RBC Distribution Width 16.8 % (11.5-14.5); Red Blood Cell (RBC) Count 4.06 mill/uL (4.70-6.10)
[2022-12-12 04:24] LABS: Anion Gap 12 mmol/L (10-20); BUN (Urea Nitrogen) 24 mg/dL (8.4-25.7); Calc. Creatinine Clearance 81 mL/min (70-130); Calcium 8.9 mg/dL (7.8-10.44); Carbon Dioxide 25 mmol/L (23-31); Chloride 103 mmol/L (98-107); Estimated GFR 69; Glucose 146 mg/dL (83-110); Potassium 4.1 mmol/L (3.5-5.1); Sodium 136 mmol/L (136-145)
[2022-12-12] MEDS: Mometasone 100 MCG/Formoterol 5 MCG 120 PUFF INHALER INH SCH ×2 (07:48→19:18)
[2022-12-12] MEDS: Polyethylene Glycol 3350 17 GM Packet PO SCH (08:23)
[2022-12-12] MEDS: Docusate 100 MG CAP PO SCH ×2 (08:23→21:11)
[2022-12-12] MEDS: Sodium Chloride 0.9% 1,000 ML IV SCH (08:23)
[2022-12-12] MEDS: cefTRIAXone\\ROCEPHIN 1 GM in Sodium Chloride 0.9% 100 ML IVPB SCH (16:06)
[2022-12-12] MEDS: Amlodipine 5 MG TAB PO SCH (21:07)
[2022-12-12] MEDS: HYDROcodone/Acetaminophen 5/325 mg Tablet PO PRN (21:07)
[2022-12-12] MEDS: Rosuvastatin 20 MG TAB PO SCH (21:07)
[2022-12-12] MEDS: Gabapentin 100 MG CAP PO SCH (21:08)
[2022-12-13] MEDS: Hyoscyamine SL 0.125 MG TAB PO SCH ×6 (00:42→20:03)
[2022-12-13 04:09] LABS: #Eosinphils 0.3 thou/uL (0.0-0.7); #Monocytes 0.8 thou/uL (0.11-0.59); #Neutrophils 6.8 thou/uL (1.40-6.50); %Basophils 0.4 % (0.0-1.0); %Eosinophils 3.7 % (0.0-10.0); %Lymphocytes 9.8 % (21.0-51.0); %Monocytes 9.3 % (0.0-10.0); Hematocrit 39.2 % (42.0-52.0); Hemoglobin 13.1 g/dL (14.0-18.0); Mean Corpuscular HGB CONC 33.4 g/dL (32.0-36.0); Mean Corpuscular Hemoglobin 30.8 pg (27.0-31.0); Mean Corpuscular Volume 92.2 fl (78.0-98.0); Mean Platelet Volume 10.2 fL (7.4-10.4); Platelet Count 260 10x3/uL (130-400); RBC Distribution Width 16.4 % (11.5-14.5); Red Blood Cell (RBC) Count 4.25 mill/uL (4.70-6.10); White Blood Cell (WBC) Count 8.9 10x3/uL (4.8-10.8)
[2022-12-13 04:31] LABS: Anion Gap 11 mmol/L (10-20); BUN (Urea Nitrogen) 22 mg/dL (8.4-25.7); Calc. Creatinine Clearance 88 mL/min (70-130); Calcium 9.2 mg/dL (7.8-10.44); Carbon Dioxide 25 mmol/L (23-31); Chloride 104 mmol/L (98-107); Estimated GFR 77; Glucose 119 mg/dL (83-110); Potassium 4.1 mmol/L (3.5-5.1); Sodium 136 mmol/L (136-145)
[2022-12-13] MEDS: Sodium Chloride 0.9% 1,000 ML IV SCH ×2 (05:30→14:18)
[2022-12-13] MEDS: Mometasone 100 MCG/Formoterol 5 MCG 120 PUFF INHALER INH SCH ×2 (07:19→18:48)
[2022-12-13] MEDS: Docusate 100 MG CAP PO SCH ×2 (10:03→20:01)
[2022-12-13] MEDS: Polyethylene Glycol 3350 17 GM Packet PO SCH (10:03)
[2022-12-13] MEDS: cefTRIAXone\\ROCEPHIN 1 GM in Sodium Chloride 0.9% 100 ML IVPB SCH (17:45)
[2022-12-13] MEDS: Rosuvastatin 20 MG TAB PO SCH (20:01)
[2022-12-13] MEDS: Gabapentin 100 MG CAP PO SCH (20:01)
[2022-12-13] MEDS: Amlodipine 5 MG TAB PO SCH (20:02)
[2022-12-14] MEDS: Hyoscyamine SL 0.125 MG TAB PO SCH ×6 (01:13→21:09)
[2022-12-14 03:46] LABS: #Basophils 0.1 thou/uL (0.0-0.2); #Eosinphils 0.3 thou/uL (0.0-0.7); #Monocytes 0.8 thou/uL (0.11-0.59); #Neutrophils 6.8 thou/uL (1.40-6.50); %Basophils 0.7 % (0.0-1.0); %Eosinophils 3.8 % (0.0-10.0); %Lymphocytes 10.2 % (21.0-51.0); %Monocytes 8.5 % (0.0-10.0); Hematocrit 40.7 % (42.0-52.0); Hemoglobin 13.7 g/dL (14.0-18.0); Mean Corpuscular HGB CONC 33.7 g/dL (32.0-36.0); Mean Corpuscular Volume 92.1 fl (78.0-98.0); Mean Platelet Volume 10.7 fL (7.4-10.4); Platelet Count 298 10x3/uL (130-400); RBC Distribution Width 16.2 % (11.5-14.5); Red Blood Cell (RBC) Count 4.42 mill/uL (4.70-6.10); White Blood Cell (WBC) Count 8.9 10x3/uL (4.8-10.8)
[2022-12-14 04:17] LABS: Anion Gap 12 mmol/L (10-20); BUN (Urea Nitrogen) 20 mg/dL (8.4-25.7); Calc. Creatinine Clearance 84 mL/min (70-130); Calcium 8.9 mg/dL (7.8-10.44); Carbon Dioxide 24 mmol/L (23-31); Chloride 106 mmol/L (98-107); Estimated GFR 72; Glucose 100 mg/dL (83-110); Potassium 4.5 mmol/L (3.5-5.1); Sodium 137 mmol/L (136-145)
[2022-12-14] MEDS: Mometasone 100 MCG/Formoterol 5 MCG 120 PUFF INHALER INH SCH ×2 (07:15→18:45)
[2022-12-14] MEDS: Docusate 100 MG CAP PO SCH ×2 (09:46→21:09)
[2022-12-14] MEDS: Polyethylene Glycol 3350 17 GM Packet PO SCH (09:46)
[2022-12-14] MEDS: cefTRIAXone\\ROCEPHIN 1 GM in Sodium Chloride 0.9% 100 ML IVPB SCH (17:26)
[2022-12-14] MEDS: Amlodipine 5 MG TAB PO SCH (21:09)
[2022-12-14] MEDS: Rosuvastatin 20 MG TAB PO SCH (21:09)
[2022-12-14] MEDS: Sodium Chloride 0.9% 1,000 ML IV SCH (21:09)
[2022-12-14] MEDS: Gabapentin 100 MG CAP PO SCH (21:10)
[2022-12-14] MEDS: HYDROcodone/Acetaminophen 5/325 mg Tablet PO PRN (21:12)
[2022-12-15] MEDS: Hyoscyamine SL 0.125 MG TAB PO SCH ×6 (01:36→19:36)
[2022-12-15 05:30] LABS: #Basophils 0.1 thou/uL (0.0-0.2); #Eosinphils 0.3 thou/uL (0.0-0.7); #Monocytes 0.7 thou/uL (0.11-0.59); #Neutrophils 5.9 thou/uL (1.40-6.50); %Basophils 0.6 % (0.0-1.0); %Eosinophils 3.4 % (0.0-10.0); %Lymphocytes 13.4 % (21.0-51.0); %Monocytes 8.9 % (0.0-10.0); %Neutrophils 72.5 % (42.0-75.0); Hematocrit 41.3 % (42.0-52.0); Hemoglobin 13.7 g/dL (14.0-18.0); Mean Corpuscular HGB CONC 33.2 g/dL (32.0-36.0); Mean Corpuscular Hemoglobin 30.6 pg (27.0-31.0); Mean Corpuscular Volume 92.4 fl (78.0-98.0); Mean Platelet Volume 10.1 fL (7.4-10.4); Platelet Count 305 10x3/uL (130-400); RBC Distribution Width 16.4 % (11.5-14.5); Red Blood Cell (RBC) Count 4.47 mill/uL (4.70-6.10); White Blood Cell (WBC) Count 8.2 10x3/uL (4.8-10.8)
[2022-12-15 06:20] LABS: Anion Gap 11 mmol/L (10-20); BUN (Urea Nitrogen) 23 mg/dL (8.4-25.7); Calc. Creatinine Clearance 98 mL/min (70-130); Calcium 9.1 mg/dL (7.8-10.44); Carbon Dioxide 25 mmol/L (23-31); Chloride 105 mmol/L (98-107); Estimated GFR 87; Glucose 98 mg/dL (83-110); Potassium 4.1 mmol/L (3.5-5.1); Sodium 137 mmol/L (136-145)
[2022-12-15] MEDS ORDERED: fentaNYL PF 100 MCG/2 ML SYRINGE ONE (06:32)
[2022-12-15] MEDS ORDERED: LevoFLOXacin 500 mg/D5W 500 MG in Premix 1 BAG IVPB SCH (07:00)
[2022-12-15] MEDS ORDERED: SODIUM CHLORIDE 0.9% IV SCH (07:00)
[2022-12-15] MEDS ORDERED: AMINOCAPROIC ACID IV SCH (07:00)
[2022-12-15] MEDS ORDERED: LevoFLOXacin 500 mg/D5W 100 ML BAG ONE (07:07)
[2022-12-15] MEDS ORDERED: Lidocaine 1% PF 5 ML VIAL ONE (07:29)
[2022-12-15] MEDS ORDERED: PROPOFOL 200 MG/20 ML VIAL ONE (07:29)
[2022-12-15] MEDS ORDERED: Rocuronium Bromide 10 MG/ML (10ML VIAL) ONE (07:29)
[2022-12-15] MEDS ORDERED: Glycopyrrolate 0.2 MG/ML 5 ML SYRINGE ONE (07:29)
[2022-12-15] MEDS ORDERED: NEOSTIGMINE 3 MG/3 ML SYR 3 MG/3 ML SYRINGE ONE (07:29)
[2022-12-15] MEDS ORDERED: Ondansetron PF 4 MG/2 ML Vial ONE (07:29)
[2022-12-15] MEDS ORDERED: PHENYLEPHRINE-NS 100 MCG/ML 10 ML SYRINGE ONE (07:29)
[2022-12-15] MEDS ORDERED: SODIUM CHLORIDE 0.9% FS SCH ×2 (07:30→14:45)
[2022-12-15] MEDS ORDERED: AMINOCAPROIC ACID FS SCH ×2 (07:30→14:45)
[2022-12-15] MEDS: Mometasone 100 MCG/Formoterol 5 MCG 120 PUFF INHALER INH SCH ×2 (07:38→23:03)
[2022-12-15] MEDS ORDERED: SUGAMMADEX SODIUM 200 MG/2 ML VIAL ONE (08:39)
[2022-12-15] MEDS ORDERED: fentaNYL 50 mcg/mL 1 mL Vial ONE ×4 (08:50→09:34)
[2022-12-15] MEDS ORDERED: Hyoscyamine SL 0.125 MG TAB ONE (08:51)
[2022-12-15] MEDS ORDERED: Ondansetron HCl/PF 4 MG/2 ML Vial IVP PRN (08:54)
[2022-12-15] MEDS ORDERED: Promethazine HCl 25 MG/ML VIAL IM PRN (08:54)
[2022-12-15] MEDS: Sodium Chloride 0.9% 1,000 ML IV SCH ×2 (10:00→19:36)
[2022-12-15] MEDS ORDERED: Aminocaproic Acid 5 GM in Sodium Chloride 0.9% 250 ML 250 ML IV SCH (10:00)
[2022-12-15] MEDS: Morphine 2 MG/ML VIAL SLOW IVP PRN ×2 (10:18→13:32)
[2022-12-15] MEDS: AMINOCAPROIC ACID FS SCH ×5 (10:25→23:16)
[2022-12-15] MEDS: SODIUM CHLORIDE 0.9% FS SCH ×5 (10:25→23:16)
[2022-12-15] MEDS: Polyethylene Glycol 3350 17 GM Packet PO SCH (11:04)
[2022-12-15] MEDS: Docusate 100 MG CAP PO SCH ×2 (11:10→19:34)
[2022-12-15] MEDS: Aminocaproic Acid 5 GM in Sodium Chloride 0.9% 250 ML 250 ML IV SCH ×2 (11:11→17:36)
[2022-12-15] MEDS: HYDROcodone/Acetaminophen 5/325 mg Tablet PO PRN ×2 (11:13→19:33)
[2022-12-15] MEDS: cefTRIAXone\\ROCEPHIN 1 GM in Sodium Chloride 0.9% 100 ML IVPB SCH (17:35)
[2022-12-15] MEDS: Gabapentin 100 MG CAP PO SCH (19:34)
[2022-12-15] MEDS: Rosuvastatin 20 MG TAB PO SCH (19:34)
[2022-12-15] MEDS: Amlodipine 5 MG TAB PO SCH (20:00)
[2022-12-16] MEDS: Aminocaproic Acid 5 GM in Sodium Chloride 0.9% 250 ML 250 ML IV SCH ×2 (00:01→06:25)
[2022-12-16] MEDS: AMINOCAPROIC ACID FS SCH ×4 (01:39→16:33)
[2022-12-16] MEDS: Hyoscyamine SL 0.125 MG TAB PO SCH ×6 (01:39→20:59)
[2022-12-16] MEDS: SODIUM CHLORIDE 0.9% FS SCH ×4 (01:39→16:33)
[2022-12-16 06:23] LABS: #Eosinphils 0.2 thou/uL (0.0-0.7); #Monocytes 0.9 thou/uL (0.11-0.59); #Neutrophils 7.7 thou/uL (1.40-6.50); %Basophils 0.4 % (0.0-1.0); %Eosinophils 2.2 % (0.0-10.0); %Lymphocytes 10.5 % (21.0-51.0); %Monocytes 8.6 % (0.0-10.0); %Neutrophils 77.5 % (42.0-75.0); Hematocrit 35.4 % (42.0-52.0); Hemoglobin 11.9 g/dL (14.0-18.0); Mean Corpuscular HGB CONC 33.6 g/dL (32.0-36.0); Mean Corpuscular Hemoglobin 31.2 pg (27.0-31.0); Mean Corpuscular Volume 92.7 fl (78.0-98.0); Mean Platelet Volume 10.4 fL (7.4-10.4); Platelet Count 283 10x3/uL (130-400); RBC Distribution Width 16.4 % (11.5-14.5); Red Blood Cell (RBC) Count 3.82 mill/uL (4.70-6.10); White Blood Cell (WBC) Count 9.9 10x3/uL (4.8-10.8)
[2022-12-16] MEDS: Sodium Chloride 0.9% 1,000 ML IV SCH ×2 (06:24→14:38)
[2022-12-16 06:46] LABS: Anion Gap 9 mmol/L (10-20); BUN (Urea Nitrogen) 21 mg/dL (8.4-25.7); Calc. Creatinine Clearance 105 mL/min (70-130); Calcium 8.5 mg/dL (7.8-10.44); Carbon Dioxide 22 mmol/L (23-31); Chloride 108 mmol/L (98-107); Estimated GFR 90; Glucose 98 mg/dL (83-110); Potassium 4.1 mmol/L (3.5-5.1); Sodium 135 mmol/L (136-145)
[2022-12-16] MEDS: Mometasone 100 MCG/Formoterol 5 MCG 120 PUFF INHALER INH SCH ×2 (07:00→18:58)
[2022-12-16] MEDS: Docusate 100 MG CAP PO SCH ×2 (09:10→20:59)
[2022-12-16] MEDS: Polyethylene Glycol 3350 17 GM Packet PO SCH (09:12)
[2022-12-16] MEDS: cefTRIAXone\\ROCEPHIN 1 GM in Sodium Chloride 0.9% 100 ML IVPB SCH (16:29)
[2022-12-16] MEDS: Rosuvastatin 20 MG TAB PO SCH (20:58)
[2022-12-16] MEDS: Amlodipine 5 MG TAB PO SCH (20:58)
[2022-12-16] MEDS: Gabapentin 100 MG CAP PO SCH (20:59)
[2022-12-16] MEDS: HYDROcodone/Acetaminophen 5/325 mg Tablet PO PRN (21:05)
[2022-12-17] MEDS: Sodium Chloride 0.9% 1,000 ML IV SCH (01:23)
[2022-12-17] MEDS: SODIUM CHLORIDE 0.9% FS SCH ×4 (01:24→22:52)
[2022-12-17] MEDS: AMINOCAPROIC ACID FS SCH ×4 (01:24→22:52)
[2022-12-17] MEDS: Hyoscyamine SL 0.125 MG TAB PO SCH ×6 (01:24→21:25)
[2022-12-17 07:01] LABS: Hemoglobin 12.1 g/dL (14.0-18.0); Mean Corpuscular HGB CONC 32.7 g/dL (32.0-36.0); Mean Corpuscular Hemoglobin 30.9 pg (27.0-31.0); Mean Corpuscular Volume 94.4 fl (78.0-98.0); Mean Platelet Volume 10.8 fL (7.4-10.4); Platelet Count 281 10x3/uL (130-400); RBC Distribution Width 16.6 % (11.5-14.5); Red Blood Cell (RBC) Count 3.92 mill/uL (4.70-6.10); White Blood Cell (WBC) Count 8.8 10x3/uL (4.8-10.8)
[2022-12-17 07:29] LABS: Anion Gap 11 mmol/L (10-20); BUN (Urea Nitrogen) 22 mg/dL (8.4-25.7); Calc. Creatinine Clearance 99 mL/min (70-130); Calcium 8.6 mg/dL (7.8-10.44); Carbon Dioxide 22 mmol/L (23-31); Chloride 107 mmol/L (98-107); Estimated GFR 88; Glucose 97 mg/dL (83-110); Potassium 4.2 mmol/L (3.5-5.1); Sodium 136 mmol/L (136-145)
[2022-12-17] MEDS: Mometasone 100 MCG/Formoterol 5 MCG 120 PUFF INHALER INH SCH ×2 (07:58→18:50)
[2022-12-17] MEDS ORDERED: Furosemide 20 MG/2 ML VIAL SLOW IVP SCH (08:45)
[2022-12-17] MEDS: Docusate 100 MG CAP PO SCH ×2 (09:23→21:22)
[2022-12-17] MEDS: Polyethylene Glycol 3350 17 GM Packet PO SCH (09:24)
[2022-12-17] MEDS: cefTRIAXone\\ROCEPHIN 1 GM in Sodium Chloride 0.9% 100 ML IVPB SCH (17:27)
[2022-12-17] MEDS: Rosuvastatin 20 MG TAB PO SCH (21:22)
[2022-12-17] MEDS: Gabapentin 100 MG CAP PO SCH (21:22)
[2022-12-17] MEDS: Amlodipine 5 MG TAB PO SCH (21:23)
[2022-12-17] MEDS: HYDROcodone/Acetaminophen 5/325 mg Tablet PO PRN (21:25)
[2022-12-18] MEDS: Hyoscyamine SL 0.125 MG TAB PO SCH ×6 (01:44→20:08)
[2022-12-18] MEDS: AMINOCAPROIC ACID FS SCH ×3 (02:47→23:48)
[2022-12-18] MEDS: SODIUM CHLORIDE 0.9% FS SCH ×3 (02:47→23:48)
[2022-12-18 03:58] LABS: Hematocrit 37.7 % (42.0-52.0); Hemoglobin 12.6 g/dL (14.0-18.0); Mean Corpuscular HGB CONC 33.4 g/dL (32.0-36.0); Mean Corpuscular Hemoglobin 30.9 pg (27.0-31.0); Mean Corpuscular Volume 92.4 fl (78.0-98.0); Mean Platelet Volume 10.2 fL (7.4-10.4); Platelet Count 302 10x3/uL (130-400); RBC Distribution Width 16.3 % (11.5-14.5); Red Blood Cell (RBC) Count 4.08 mill/uL (4.70-6.10); White Blood Cell (WBC) Count 9.8 10x3/uL (4.8-10.8)
[2022-12-18 04:20] LABS: Anion Gap 11 mmol/L (10-20); BUN (Urea Nitrogen) 23 mg/dL (8.4-25.7); Calc. Creatinine Clearance 89 mL/min (70-130); Calcium 9.1 mg/dL (7.8-10.44); Carbon Dioxide 26 mmol/L (23-31); Chloride 104 mmol/L (98-107); Estimated GFR 77; Glucose 106 mg/dL (83-110); Potassium 4.1 mmol/L (3.5-5.1); Sodium 137 mmol/L (136-145)
[2022-12-18] MEDS: Mometasone 100 MCG/Formoterol 5 MCG 120 PUFF INHALER INH SCH ×2 (06:43→18:42)
[2022-12-18] MEDS: Furosemide 20 MG TAB PO SCH (06:48)
[2022-12-18] MEDS: Docusate 100 MG CAP PO SCH ×2 (08:05→19:58)
[2022-12-18] MEDS: Polyethylene Glycol 3350 17 GM Packet PO SCH (08:06)
[2022-12-18] MEDS ORDERED: Aminocaproic Acid 5 GM in Sodium Chloride 0.9% 250 ML 250 ML IV SCH (13:15)
[2022-12-18] MEDS: Aminocaproic Acid 5 GM in Sodium Chloride 0.9% 250 ML 250 ML IV SCH ×2 (14:11→19:59)
[2022-12-18] MEDS: cefTRIAXone\\ROCEPHIN 1 GM in Sodium Chloride 0.9% 100 ML IVPB SCH (16:49)
[2022-12-18] MEDS ORDERED: SODIUM CHLORIDE 0.9% FS SCH (17:30)
[2022-12-18] MEDS ORDERED: AMINOCAPROIC ACID FS SCH (17:30)
[2022-12-18] MEDS: HYDROcodone/Acetaminophen 5/325 mg Tablet PO PRN (19:56)
[2022-12-18] MEDS: Amlodipine 5 MG TAB PO SCH (19:57)
[2022-12-18] MEDS: Rosuvastatin 20 MG TAB PO SCH (19:58)
[2022-12-18] MEDS: Gabapentin 100 MG CAP PO SCH (19:58)
[2022-12-19] MEDS: Hyoscyamine SL 0.125 MG TAB PO SCH ×6 (01:30→21:10)
[2022-12-19] MEDS: Aminocaproic Acid 5 GM in Sodium Chloride 0.9% 250 ML 250 ML IV SCH ×4 (03:20→19:56)
[2022-12-19 03:54] LABS: Hemoglobin 12.9 g/dL (14.0-18.0); Mean Corpuscular HGB CONC 33.9 g/dL (32.0-36.0); Mean Corpuscular Hemoglobin 30.9 pg (27.0-31.0); Mean Corpuscular Volume 91.1 fl (78.0-98.0); Mean Platelet Volume 10.8 fL (7.4-10.4); Platelet Count 331 10x3/uL (130-400); RBC Distribution Width 16.3 % (11.5-14.5); Red Blood Cell (RBC) Count 4.17 mill/uL (4.70-6.10); White Blood Cell (WBC) Count 9.1 10x3/uL (4.8-10.8)
[2022-12-19 04:18] LABS: Anion Gap 13 mmol/L (10-20); BUN (Urea Nitrogen) 26 mg/dL (8.4-25.7); Calc. Creatinine Clearance 97 mL/min (70-130); Carbon Dioxide 23 mmol/L (23-31); Chloride 104 mmol/L (98-107); Estimated GFR 86; Glucose 115 mg/dL (83-110); Sodium 136 mmol/L (136-145)
[2022-12-19] MEDS: Furosemide 20 MG TAB PO SCH (06:10)
[2022-12-19] MEDS: Mometasone 100 MCG/Formoterol 5 MCG 120 PUFF INHALER INH SCH ×2 (07:12→18:21)
[2022-12-19] MEDS: Docusate 100 MG CAP PO SCH ×2 (07:53→21:14)
[2022-12-19] MEDS: Polyethylene Glycol 3350 17 GM Packet PO SCH (07:53)
[2022-12-19] MEDS: Oxybutynin ER 5 MG TAB PO SCH (08:41)
[2022-12-19] MEDS: cefTRIAXone\\ROCEPHIN 1 GM in Sodium Chloride 0.9% 100 ML IVPB SCH (16:12)
[2022-12-19] MEDS: Gabapentin 100 MG CAP PO SCH (21:10)
[2022-12-19] MEDS: HYDROcodone/Acetaminophen 5/325 mg Tablet PO PRN (21:12)
[2022-12-19] MEDS: Rosuvastatin 20 MG TAB PO SCH (21:14)
[2022-12-19] MEDS: Amlodipine 5 MG TAB PO SCH (21:15)
[2022-12-20] MEDS: Hyoscyamine SL 0.125 MG TAB PO SCH ×6 (00:56→20:54)
[2022-12-20] MEDS: AMINOCAPROIC ACID FS SCH (00:58)
[2022-12-20] MEDS: SODIUM CHLORIDE 0.9% FS SCH (00:58)
[2022-12-20] MEDS: Aminocaproic Acid 5 GM in Sodium Chloride 0.9% 250 ML 250 ML IV SCH ×4 (01:08→21:07)
[2022-12-20 04:18] LABS: Hematocrit 38.3 % (42.0-52.0); Hemoglobin 12.9 g/dL (14.0-18.0); Mean Corpuscular HGB CONC 33.7 g/dL (32.0-36.0); Mean Corpuscular Hemoglobin 31.1 pg (27.0-31.0); Mean Corpuscular Volume 92.3 fl (78.0-98.0); Mean Platelet Volume 10.2 fL (7.4-10.4); Platelet Count 308 10x3/uL (130-400); RBC Distribution Width 16.4 % (11.5-14.5); Red Blood Cell (RBC) Count 4.15 mill/uL (4.70-6.10)
[2022-12-20 04:41] LABS: Anion Gap 13 mmol/L (10-20); BUN (Urea Nitrogen) 26 mg/dL (8.4-25.7); Calc. Creatinine Clearance 103 mL/min (70-130); Calcium 8.9 mg/dL (7.8-10.44); Carbon Dioxide 24 mmol/L (23-31); Chloride 104 mmol/L (98-107); Estimated GFR 90; Glucose 111 mg/dL (83-110); Potassium 4.1 mmol/L (3.5-5.1); Sodium 137 mmol/L (136-145)
[2022-12-20] MEDS: Mometasone 100 MCG/Formoterol 5 MCG 120 PUFF INHALER INH SCH ×2 (06:58→19:28)
[2022-12-20] MEDS: Furosemide 20 MG TAB PO SCH (07:14)
[2022-12-20] MEDS: Docusate 100 MG CAP PO SCH ×2 (07:37→20:54)
[2022-12-20] MEDS: Polyethylene Glycol 3350 17 GM Packet PO SCH (07:38)
[2022-12-20] MEDS: Oxybutynin ER 5 MG TAB PO SCH (07:38)
[2022-12-20] MEDS: cefTRIAXone\\ROCEPHIN 1 GM in Sodium Chloride 0.9% 100 ML IVPB SCH (17:18)
[2022-12-20] MEDS: Rosuvastatin 20 MG TAB PO SCH (20:54)
[2022-12-20] MEDS: Amlodipine 5 MG TAB PO SCH (20:54)
[2022-12-20] MEDS: HYDROcodone/Acetaminophen 5/325 mg Tablet PO PRN (20:55)
[2022-12-20] MEDS: Gabapentin 100 MG CAP PO SCH (20:55)
[2022-12-21] MEDS: Hyoscyamine SL 0.125 MG TAB PO SCH ×2 (00:35→05:10)
[2022-12-21] MEDS: Aminocaproic Acid 5 GM in Sodium Chloride 0.9% 250 ML 250 ML IV SCH ×4 (01:13→19:48)
[2022-12-21 04:13] LABS: Hematocrit 39.5 % (42.0-52.0); Hemoglobin 13.2 g/dL (14.0-18.0); Mean Corpuscular HGB CONC 33.4 g/dL (32.0-36.0); Mean Corpuscular Hemoglobin 31.1 pg (27.0-31.0); Mean Corpuscular Volume 93.2 fl (78.0-98.0); Mean Platelet Volume 10.6 fL (7.4-10.4); Platelet Count 319 10x3/uL (130-400); RBC Distribution Width 16.6 % (11.5-14.5); Red Blood Cell (RBC) Count 4.24 mill/uL (4.70-6.10); White Blood Cell (WBC) Count 9.7 10x3/uL (4.8-10.8)
[2022-12-21 04:37] LABS: Anion Gap 13 mmol/L (10-20); BUN (Urea Nitrogen) 25 mg/dL (8.4-25.7); Calc. Creatinine Clearance 101 mL/min (70-130); Calcium 9.1 mg/dL (7.8-10.44); Carbon Dioxide 23 mmol/L (23-31); Chloride 104 mmol/L (98-107); Estimated GFR 89; Glucose 108 mg/dL (83-110); Potassium 3.9 mmol/L (3.5-5.1); Sodium 136 mmol/L (136-145)
[2022-12-21] MEDS: Furosemide 20 MG TAB PO SCH (05:10)
[2022-12-21] MEDS: Mometasone 100 MCG/Formoterol 5 MCG 120 PUFF INHALER INH SCH ×2 (06:50→19:04)
[2022-12-21] MEDS: Polyethylene Glycol 3350 17 GM Packet PO SCH (10:45)
[2022-12-21] MEDS: Docusate 100 MG CAP PO SCH ×2 (10:46→19:59)
[2022-12-21] MEDS: Oxybutynin ER 5 MG TAB PO SCH (10:52)
[2022-12-21] MEDS: cefTRIAXone\\ROCEPHIN 2 GM in Sodium Chloride 0.9% 100 ML IVPB SCH (16:20)
[2022-12-21] MEDS: Rosuvastatin 20 MG TAB PO SCH (19:57)
[2022-12-21] MEDS: Gabapentin 100 MG CAP PO SCH (19:57)
[2022-12-21] MEDS: HYDROcodone/Acetaminophen 5/325 mg Tablet PO PRN (19:58)
[2022-12-21] MEDS: Amlodipine 5 MG TAB PO SCH (19:58)
[2022-12-22] MEDS: Aminocaproic Acid 5 GM in Sodium Chloride 0.9% 250 ML 250 ML IV SCH ×4 (02:15→20:20)
[2022-12-22 03:02] LABS: Hemoglobin 13.8 g/dL (14.0-18.0); Mean Corpuscular HGB CONC 33.7 g/dL (32.0-36.0); Mean Corpuscular Hemoglobin 30.9 pg (27.0-31.0); Mean Corpuscular Volume 91.7 fl (78.0-98.0); Mean Platelet Volume 10.6 fL (7.4-10.4); Platelet Count 319 10x3/uL (130-400); RBC Distribution Width 16.6 % (11.5-14.5); Red Blood Cell (RBC) Count 4.47 mill/uL (4.70-6.10)
[2022-12-22 03:30] LABS: Anion Gap 12 mmol/L (10-20); BUN (Urea Nitrogen) 24 mg/dL (8.4-25.7); Calc. Creatinine Clearance 104 mL/min (70-130); Calcium 9.1 mg/dL (7.8-10.44); Carbon Dioxide 24 mmol/L (23-31); Chloride 102 mmol/L (98-107); Estimated GFR 90; Glucose 97 mg/dL (83-110); Sodium 134 mmol/L (136-145)
[2022-12-22] MEDS: Mometasone 100 MCG/Formoterol 5 MCG 120 PUFF INHALER INH SCH ×2 (06:48→19:08)
[2022-12-22] MEDS: Furosemide 20 MG TAB PO SCH (07:23)
[2022-12-22] MEDS: Polyethylene Glycol 3350 17 GM Packet PO SCH (09:21)
[2022-12-22] MEDS: Docusate 100 MG CAP PO SCH ×2 (09:21→20:19)
[2022-12-22] MEDS: cefTRIAXone\\ROCEPHIN 2 GM in Sodium Chloride 0.9% 100 ML IVPB SCH (15:09)
[2022-12-22] MEDS: Gabapentin 100 MG CAP PO SCH (20:18)
[2022-12-22] MEDS: Rosuvastatin 20 MG TAB PO SCH (20:18)
[2022-12-22] MEDS: Amlodipine 5 MG TAB PO SCH (20:18)
[2022-12-22] MEDS: HYDROcodone/Acetaminophen 5/325 mg Tablet PO PRN (20:19)
[2022-12-23 04:20] LABS: Hematocrit 37.6 % (42.0-52.0); Hemoglobin 12.9 g/dL (14.0-18.0); Mean Corpuscular HGB CONC 34.3 g/dL (32.0-36.0); Mean Corpuscular Hemoglobin 31.5 pg (27.0-31.0); Mean Corpuscular Volume 91.7 fl (78.0-98.0); Mean Platelet Volume 11.4 fL (7.4-10.4); Platelet Count 303 10x3/uL (130-400); RBC Distribution Width 16.5 % (11.5-14.5); White Blood Cell (WBC) Count 9.8 10x3/uL (4.8-10.8)
[2022-12-23] MEDS: Aminocaproic Acid 5 GM in Sodium Chloride 0.9% 250 ML 250 ML IV SCH ×4 (04:51→20:04)
[2022-12-23] MEDS: Furosemide 20 MG TAB PO SCH (05:28)
[2022-12-23 06:50] LABS: Anion Gap 12 mmol/L (10-20); BUN (Urea Nitrogen) 24 mg/dL (8.4-25.7); Calc. Creatinine Clearance 100 mL/min (70-130); Calcium 8.8 mg/dL (7.8-10.44); Carbon Dioxide 26 mmol/L (23-31); Chloride 102 mmol/L (98-107); Estimated GFR 88; Glucose 96 mg/dL (83-110); Sodium 136 mmol/L (136-145)
[2022-12-23] MEDS: Mometasone 100 MCG/Formoterol 5 MCG 120 PUFF INHALER INH SCH ×2 (07:24→19:26)
[2022-12-23] MEDS: Polyethylene Glycol 3350 17 GM Packet PO SCH (09:45)
[2022-12-23] MEDS: Docusate 100 MG CAP PO SCH ×2 (09:45→20:38)
[2022-12-23] MEDS: cefTRIAXone\\ROCEPHIN 2 GM in Sodium Chloride 0.9% 100 ML IVPB SCH (14:13)
[2022-12-23] MEDS: Rosuvastatin 20 MG TAB PO SCH (20:38)
[2022-12-23] MEDS: Amlodipine 5 MG TAB PO SCH (20:38)
[2022-12-23] MEDS: HYDROcodone/Acetaminophen 5/325 mg Tablet PO PRN (20:39)
[2022-12-23] MEDS: Gabapentin 100 MG CAP PO SCH (20:39)
[2022-12-24] MEDS: Aminocaproic Acid 5 GM in Sodium Chloride 0.9% 250 ML 250 ML IV SCH ×4 (02:36→20:11)
[2022-12-24 04:23] LABS: Hematocrit 37.6 % (42.0-52.0); Hemoglobin 12.5 g/dL (14.0-18.0); Mean Corpuscular HGB CONC 33.2 g/dL (32.0-36.0); Mean Corpuscular Hemoglobin 30.6 pg (27.0-31.0); Mean Corpuscular Volume 92.2 fl (78.0-98.0); Mean Platelet Volume 10.7 fL (7.4-10.4); Platelet Count 294 10x3/uL (130-400); RBC Distribution Width 16.5 % (11.5-14.5); Red Blood Cell (RBC) Count 4.08 mill/uL (4.70-6.10); White Blood Cell (WBC) Count 10.7 10x3/uL (4.8-10.8)
[2022-12-24 04:52] LABS: Anion Gap 11 mmol/L (10-20); BUN (Urea Nitrogen) 29 mg/dL (8.4-25.7); Calc. Creatinine Clearance 87 mL/min (70-130); Calcium 8.6 mg/dL (7.8-10.44); Carbon Dioxide 26 mmol/L (23-31); Chloride 104 mmol/L (98-107); Estimated GFR 74; Glucose 103 mg/dL (83-110); Sodium 137 mmol/L (136-145)
[2022-12-24] MEDS: Furosemide 20 MG TAB PO SCH (06:24)
[2022-12-24] MEDS: Mometasone 100 MCG/Formoterol 5 MCG 120 PUFF INHALER INH SCH ×2 (06:27→18:20)
[2022-12-24] MEDS: Docusate 100 MG CAP PO SCH ×2 (09:24→20:03)
[2022-12-24] MEDS: AMINOCAPROIC ACID FS SCH ×2 (09:28→21:25)
[2022-12-24] MEDS: Polyethylene Glycol 3350 17 GM Packet PO SCH (09:28)
[2022-12-24] MEDS: SODIUM CHLORIDE 0.9% FS SCH ×2 (09:28→21:25)
[2022-12-24] MEDS: cefTRIAXone\\ROCEPHIN 2 GM in Sodium Chloride 0.9% 100 ML IVPB SCH (13:42)
[2022-12-24] MEDS: Rosuvastatin 20 MG TAB PO SCH (20:03)
[2022-12-24] MEDS: Amlodipine 5 MG TAB PO SCH (20:03)
[2022-12-24] MEDS: Gabapentin 100 MG CAP PO SCH (20:04)
[2022-12-24] MEDS: HYDROcodone/Acetaminophen 5/325 mg Tablet PO PRN (20:07)
[2022-12-25] MEDS: AMINOCAPROIC ACID FS SCH (01:41)
[2022-12-25] MEDS: SODIUM CHLORIDE 0.9% FS SCH (01:41)
[2022-12-25] MEDS: Aminocaproic Acid 5 GM in Sodium Chloride 0.9% 250 ML 250 ML IV SCH ×4 (02:22→20:46)
[2022-12-25] MEDS: Furosemide 20 MG TAB PO SCH (05:05)
[2022-12-25 05:53] LABS: Red Blood Cell (RBC) Count 4.42 mill/uL (4.70-6.10); White Blood Cell (WBC) Count 8.6 10x3/uL (4.8-10.8)
[2022-12-25 05:54] LABS: Hematocrit 41.2 % (42.0-52.0); Hemoglobin 13.6 g/dL (14.0-18.0); Mean Corpuscular Hemoglobin 30.8 pg (27.0-31.0); Mean Corpuscular Volume 93.2 fl (78.0-98.0); Mean Platelet Volume 11.1 fL (7.4-10.4); Platelet Count 329 10x3/uL (130-400); RBC Distribution Width 16.5 % (11.5-14.5)
[2022-12-25 06:19] LABS: Anion Gap 12 mmol/L (10-20); BUN (Urea Nitrogen) 23 mg/dL (8.4-25.7); Calc. Creatinine Clearance 101 mL/min (70-130); Calcium 8.8 mg/dL (7.8-10.44); Carbon Dioxide 25 mmol/L (23-31); Chloride 105 mmol/L (98-107); Estimated GFR 89; Glucose 100 mg/dL (83-110); Potassium 4.1 mmol/L (3.5-5.1); Sodium 138 mmol/L (136-145)
[2022-12-25] MEDS: Mometasone 100 MCG/Formoterol 5 MCG 120 PUFF INHALER INH SCH ×2 (06:39→18:51)
[2022-12-25] MEDS: Docusate 100 MG CAP PO SCH ×2 (09:24→20:39)
[2022-12-25] MEDS: Polyethylene Glycol 3350 17 GM Packet PO SCH (09:26)
[2022-12-25] MEDS: cefTRIAXone\\ROCEPHIN 2 GM in Sodium Chloride 0.9% 100 ML IVPB SCH (16:56)
[2022-12-25] MEDS: Phenazopyridine HCl 100 MG TAB PO SCH ×2 (17:01→20:39)
[2022-12-25] MEDS: Amlodipine 5 MG TAB PO SCH (20:39)
[2022-12-25] MEDS: Gabapentin 100 MG CAP PO SCH (20:40)
[2022-12-25] MEDS: Rosuvastatin 20 MG TAB PO SCH (20:40)
[2022-12-25] MEDS: HYDROcodone/Acetaminophen 5/325 mg Tablet PO PRN (20:41)
[2022-12-26] MEDS: Aminocaproic Acid 5 GM in Sodium Chloride 0.9% 250 ML 250 ML IV SCH ×4 (02:28→20:51)
[2022-12-26 04:41] LABS: Hematocrit 37.8 % (42.0-52.0); Hemoglobin 12.7 g/dL (14.0-18.0); Mean Corpuscular HGB CONC 33.6 g/dL (32.0-36.0); Mean Corpuscular Hemoglobin 30.8 pg (27.0-31.0); Mean Corpuscular Volume 91.7 fl (78.0-98.0); Mean Platelet Volume 10.5 fL (7.4-10.4); Platelet Count 294 10x3/uL (130-400); RBC Distribution Width 16.4 % (11.5-14.5); Red Blood Cell (RBC) Count 4.12 mill/uL (4.70-6.10); White Blood Cell (WBC) Count 9.1 10x3/uL (4.8-10.8)
[2022-12-26 05:08] LABS: Anion Gap 11 mmol/L (10-20); BUN (Urea Nitrogen) 23 mg/dL (8.4-25.7); Calc. Creatinine Clearance 99 mL/min (70-130); Carbon Dioxide 26 mmol/L (23-31); Chloride 104 mmol/L (98-107); Estimated GFR 88; Glucose 113 mg/dL (83-110); Potassium 3.8 mmol/L (3.5-5.1); Sodium 137 mmol/L (136-145)
[2022-12-26] MEDS: Furosemide 20 MG TAB PO SCH (05:09)
[2022-12-26] MEDS: Mometasone 100 MCG/Formoterol 5 MCG 120 PUFF INHALER INH SCH ×2 (06:45→18:19)
[2022-12-26] MEDS: Polyethylene Glycol 3350 17 GM Packet PO SCH (09:02)
[2022-12-26] MEDS: Docusate 100 MG CAP PO SCH ×2 (09:02→20:52)
[2022-12-26] MEDS: Phenazopyridine HCl 100 MG TAB PO SCH ×3 (09:02→20:52)
[2022-12-26] MEDS: cefTRIAXone\\ROCEPHIN 2 GM in Sodium Chloride 0.9% 100 ML IVPB SCH (14:01)
[2022-12-26] MEDS: Rosuvastatin 20 MG TAB PO SCH (20:52)
[2022-12-26] MEDS: Amlodipine 5 MG TAB PO SCH (20:52)
[2022-12-26] MEDS: Gabapentin 100 MG CAP PO SCH (20:52)
[2022-12-26] MEDS: HYDROcodone/Acetaminophen 5/325 mg Tablet PO PRN (20:52)
[2022-12-27] MEDS: Aminocaproic Acid 5 GM in Sodium Chloride 0.9% 250 ML 250 ML IV SCH ×4 (02:15→20:33)
[2022-12-27] MEDS: Furosemide 20 MG TAB PO SCH (05:20)
[2022-12-27 05:39] LABS: #Basophils 0.1 thou/uL (0.0-0.2); #Eosinphils 0.4 thou/uL (0.0-0.7); #Neutrophils 6.1 thou/uL (1.40-6.50); %Basophils 0.7 % (0.0-1.0); %Eosinophils 4.5 % (0.0-10.0); %Lymphocytes 13.4 % (21.0-51.0); %Monocytes 11.3 % (0.0-10.0); %Neutrophils 69.5 % (42.0-75.0); Hematocrit 37.8 % (42.0-52.0); Hemoglobin 12.7 g/dL (14.0-18.0); Mean Corpuscular HGB CONC 33.6 g/dL (32.0-36.0); Mean Corpuscular Hemoglobin 31.1 pg (27.0-31.0); Mean Corpuscular Volume 92.4 fl (78.0-98.0); Mean Platelet Volume 10.3 fL (7.4-10.4); Platelet Count 302 10x3/uL (130-400); RBC Distribution Width 16.3 % (11.5-14.5); Red Blood Cell (RBC) Count 4.09 mill/uL (4.70-6.10); White Blood Cell (WBC) Count 8.7 10x3/uL (4.8-10.8)
[2022-12-27 06:22] LABS: Anion Gap 15 mmol/L (10-20); BUN (Urea Nitrogen) 21 mg/dL (8.4-25.7); Calc. Creatinine Clearance 105 mL/min (70-130); Carbon Dioxide 22 mmol/L (23-31); Chloride 104 mmol/L (98-107); Estimated GFR 90; Glucose 99 mg/dL (83-110); Potassium 3.9 mmol/L (3.5-5.1); Sodium 137 mmol/L (136-145)
[2022-12-27] MEDS: Mometasone 100 MCG/Formoterol 5 MCG 120 PUFF INHALER INH SCH ×2 (06:57→18:19)
[2022-12-27] MEDS: Polyethylene Glycol 3350 17 GM Packet PO SCH (07:23)
[2022-12-27] MEDS: Docusate 100 MG CAP PO SCH ×2 (08:00→20:05)
[2022-12-27] MEDS: Phenazopyridine HCl 100 MG TAB PO SCH ×3 (08:00→20:02)
[2022-12-27] MEDS ORDERED: HYDROcodone/Acetaminophen 5/325 mg Tablet PO PRN ×2 (12:32)
[2022-12-27] MEDS: cefTRIAXone\\ROCEPHIN 2 GM in Sodium Chloride 0.9% 100 ML IVPB SCH (15:26)
[2022-12-27] MEDS: Rosuvastatin 20 MG TAB PO SCH (20:02)
[2022-12-27] MEDS: Gabapentin 100 MG CAP PO SCH (20:03)
[2022-12-27] MEDS: Amlodipine 5 MG TAB PO SCH (20:04)
[2022-12-27 20:06] VITALS: BP 110/70
[2022-12-28] MEDS: Aminocaproic Acid 5 GM in Sodium Chloride 0.9% 250 ML 250 ML IV SCH ×2 (01:32→08:54)
[2022-12-28 04:36] LABS: #Basophils 0.1 thou/uL (0.0-0.2); #Eosinphils 0.4 thou/uL (0.0-0.7); #Monocytes 0.8 thou/uL (0.11-0.59); #Neutrophils 4.8 thou/uL (1.40-6.50); %Basophils 0.7 % (0.0-1.0); %Eosinophils 5.6 % (0.0-10.0); %Lymphocytes 14.3 % (21.0-51.0); %Monocytes 11.4 % (0.0-10.0); %Neutrophils 67.6 % (42.0-75.0); Hematocrit 36.9 % (42.0-52.0); Hemoglobin 12.4 g/dL (14.0-18.0); Mean Corpuscular HGB CONC 33.6 g/dL (32.0-36.0); Mean Corpuscular Hemoglobin 31.4 pg (27.0-31.0); Mean Corpuscular Volume 93.4 fl (78.0-98.0); Mean Platelet Volume 10.7 fL (7.4-10.4); Platelet Count 245 10x3/uL (130-400); RBC Distribution Width 16.7 % (11.5-14.5); Red Blood Cell (RBC) Count 3.95 mill/uL (4.70-6.10); White Blood Cell (WBC) Count 7.1 10x3/uL (4.8-10.8)
[2022-12-28] MEDS: Furosemide 20 MG TAB PO SCH (05:55)
[2022-12-28 06:31] LABS: Chloride 107 mmol/L (98-107); Potassium 3.9 mmol/L (3.5-5.1)
[2022-12-28 06:32] LABS: Calcium 8.9 mg/dL (7.8-10.44); Sodium 140 mmol/L (136-145)
[2022-12-28 06:33] LABS: Glucose 102 mg/dL (83-110)
[2022-12-28 06:34] LABS: Anion Gap 13 mmol/L (10-20); Carbon Dioxide 24 mmol/L (23-31)
[2022-12-28 06:36] LABS: Calc. Creatinine Clearance 92 mL/min (70-130); Estimated GFR 79
[2022-12-28 06:37] LABS: BUN (Urea Nitrogen) 28 mg/dL (8.4-25.7)
[2022-12-28 07:49] VITALS: TEMP 97.8
[2022-12-28] MEDS: Mometasone 100 MCG/Formoterol 5 MCG 120 PUFF INHALER INH SCH (08:00)
[2022-12-28] MEDS: Phenazopyridine HCl 100 MG TAB PO SCH (08:54)
[2022-12-28] MEDS: Docusate 100 MG CAP PO SCH (08:54)
[2022-12-28] MEDS: Polyethylene Glycol 3350 17 GM Packet PO SCH (08:54)
== END 2022-12-28 11:58 | disposition home or self-care (01) | DRG 669 ==
LOC: ERS 07:15 → SUATTDRO 07:15 → SJJU 11:34 → OBSVTOIN 12-08 10:56 → IMCU/EMU 12-09 10:53
PROVIDERS: ADMIT Family Medicine; ATTEND Family Medicine
PROC: 0T9B70Z Drainage of Bladder with Drainage Device, Via Natural or Artificial Opening (ICD-10-PCS; 2022-12-08)
PROC: 5A09457 Assistance with Respiratory Ventilation, 24-96 Consecutive Hours, Continuous Positive Airway Pressure (ICD-10-PCS; 2022-12-10)
PROC: 5A0935A Assistance with Respiratory Ventilation, Less than 24 Consecutive Hours, High Flow/Velocity Cannula (ICD-10-PCS; 2022-12-10)
PROC: 0T5B8ZZ Destruction of Bladder, Via Natural or Artificial Opening Endoscopic (ICD-10-PCS; principal; 2022-12-15)
PROC: 0T7D8ZZ Dilation of Urethra, Via Natural or Artificial Opening Endoscopic (ICD-10-PCS; 2022-12-15)
DX: N30.41 Irradiation cystitis with hematuria (principal); I50.42 Chronic combined systolic (congestive) and diastolic (congestive) heart failure; J96.11 Chronic respiratory failure with hypoxia; N17.9 Acute kidney failure, unspecified; D64.9 Anemia, unspecified; E78.5 Hyperlipidemia, unspecified; J44.9 Chronic obstructive pulmonary disease, unspecified; N35.912 Unspecified bulbous urethral stricture, male; Z79.82 Long term (current) use of aspirin; Z79.899 Other long term (current) drug therapy; I25.10 Atherosclerotic heart disease of native coronary artery without angina pectoris; Z95.1 Presence of aortocoronary bypass graft; Z90.49 Acquired absence of other specified parts of digestive tract; Z98.890 Other specified postprocedural states; Z90.89 Acquired absence of other organs; F17.220 Nicotine dependence, chewing tobacco, uncomplicated; N35.919 Unspecified urethral stricture, male, unspecified site; G47.33 Obstructive sleep apnea (adult) (pediatric); Z85.46 Personal history of malignant neoplasm of prostate; I11.0 Hypertensive heart disease with heart failure
CPT/HCPCS: 36415; 36416; 51702; 71045; 80048; 80053; 81001; 83605; 85025; 85027; 85610; 85730; 86850; 86900; 86901; 87040; 87077; 87086; 87186; 96365; C1769; J0696; J1940; J1956; J2272; J2405; J2704; J3010; J3490; J7050; Q9967; S0017

== ENCOUNTER 2023-07-13 16:06 | Inpatient (IN) | payer MEDICARE, OTHER ==
[~2023-07-13 16:06] MED LIST changes: +Iopamidol-370 76% 500 ML MDV (1 ML CHARGE) ONE; -Triamcinolone 40 MG/ML VIAL IJ SCH
[2023-07-13 17:56] LABS: Bacteria/HPF 4+ HPF (None Seen); Bilirubin Negative (Negative); Blood, Urine 2+ (Negative); CAUTI Indications for Culture Dysuria,urgency,freq; Clarity Turbid (Clear); Glucose, Urine (Dipstick) Normal (Negative); Ketone, Urine Negative (Negative); Leukocyte 500 Leu/uL (Negative); Nitrite Negative (Negative); Protein, Urine (Dipstick) 50 mg/dL (Neg-Trace); RBC/HPF 21-50 HPF (0-3); Squamous Epithelial None Seen HPF (0-3); WBC/HPF Greater than 50 HPF (0-3)
[2023-07-13 17:57] LABS: Urine Culture Reflex Yes Yes; Yeast-Budding Rare HPF (None Seen)
[2023-07-13 18:13] LABS: Globulin 4.5 g/dL (2.4-3.5)
[2023-07-13 18:18] LABS: #Basophils 0.03 10x3/uL (0.0-0.2); #Eosinphils Less than 0.03 10x3/uL (0.0-0.7); %Basophils 0.2 % (0.0-1.0); %Eosinophils 0.1 % (0.0-10.0); %Lymphocytes 4.3 % (21.0-51.0); %Monocytes 10.2 % (0.0-10.0); %Neutrophils 84.8 % (42.0-75.0); Hematocrit 48.6 % (42.0-52.0); Hemoglobin 16.4 g/dL (14.0-18.0); Mean Corpuscular HGB CONC 33.7 g/dL (32.0-36.0); Mean Corpuscular Hemoglobin 27.4 pg (27.0-31.0); Mean Corpuscular Volume 81.3 fL (78.0-98.0); Mean Platelet Volume 10.2 fL (7.4-10.4); Platelet Count 231 10x3/uL (130-400); RBC Distribution Width 22.4 % (11.5-14.5); Red Blood Cell (RBC) Count 5.98 mill/uL (4.70-6.10)
[2023-07-13 18:18] LABS: ALT (SGPT) 17 U/L (8-55); AST (SGOT) 20 U/L (5-34); Albumin 3.3 g/dL (3.4-4.8); Alkaline Phosphatase 89 U/L (40-110); Anion Gap 17 mmol/L (10-20); BUN (Urea Nitrogen) 24 mg/dL (8.4-25.7); Bilirubin, Total 1.7 mg/dL (0.2-1.2); Calc. Creatinine Clearance 0 mL/min (70-130); Calcium 9.6 mg/dL (7.8-10.44); Carbon Dioxide 20 mmol/L (23-31); Chloride 98 mmol/L (98-107); Estimated GFR 60; Glucose 97 mg/dL (83-110); Potassium 4.1 mmol/L (3.5-5.1); Protein, Total 7.8 g/dL (5.8-8.1); Sodium 131 mmol/L (136-145)
[2023-07-13] MEDS ORDERED: LevoFLOXacin D5W 500 mg (100 mL) BAG ONE (18:43)
[2023-07-13] MEDS ORDERED: Acetaminophen 325 MG TAB PO PRN (23:15)
[2023-07-14 00:09] VITALS: BMI 29.5
[2023-07-14] MEDS: Lactated Ringer's 1,000 ML IV SCH (00:36)
[2023-07-14 06:54] LABS: #Basophils Less than 0.03 10x3/uL (0.0-0.2); %Basophils 0.2 % (0.0-1.0); %Eosinophils 1.2 % (0.0-10.0); %Lymphocytes 8.7 % (21.0-51.0); %Monocytes 13.3 % (0.0-10.0); %Neutrophils 76.2 % (42.0-75.0); Hematocrit 43.2 % (42.0-52.0); Hemoglobin 14.4 g/dL (14.0-18.0); Mean Corpuscular HGB CONC 33.3 g/dL (32.0-36.0); Mean Corpuscular Hemoglobin 27.7 pg (27.0-31.0); Mean Corpuscular Volume 83.1 fL (78.0-98.0); Mean Platelet Volume 10.8 fL (7.4-10.4); Platelet Count 204 10x3/uL (130-400); RBC Distribution Width 22.3 % (11.5-14.5)
[2023-07-14 07:18] LABS: Globulin 3.7 g/dL (2.4-3.5)
[2023-07-14 07:22] LABS: ALT (SGPT) 15 U/L (8-55); AST (SGOT) 19 U/L (5-34); Albumin 2.8 g/dL (3.4-4.8); Alkaline Phosphatase 74 U/L (40-110); Anion Gap 12 mmol/L (10-20); BUN (Urea Nitrogen) 24 mg/dL (8.4-25.7); Bilirubin, Total 0.9 mg/dL (0.2-1.2); Calc. Creatinine Clearance 80 mL/min (70-130); Calcium 9.1 mg/dL (7.8-10.44); Carbon Dioxide 22 mmol/L (23-31); Chloride 104 mmol/L (98-107); Estimated GFR 70; Glucose 103 mg/dL (83-110); Potassium 3.8 mmol/L (3.5-5.1); Protein, Total 6.5 g/dL (5.8-8.1); Sodium 134 mmol/L (136-145)
[2023-07-14] MEDS: Mometasone 100 MCG/Formoterol 5 MCG 120 PUFF INHALER INH SCH (07:39)
[2023-07-14] MEDS: Gabapentin 100 MG CAP PO SCH (08:34)
[2023-07-14] MEDS: Lisinopril 20 MG TAB PO SCH (08:34)
[2023-07-14] MEDS: Docusate 100 MG CAP PO SCH (08:35)
[2023-07-14] MEDS ORDERED: Amlodipine 5 MG TAB PO SCH (09:00)
[2023-07-14] MEDS: LevoFLOXacin 750 MG TAB PO SCH (16:15)
[2023-07-14] MEDS: Rosuvastatin 20 MG TAB PO SCH (21:16)
[2023-07-14] MEDS: Amlodipine 5 MG TAB PO SCH (21:16)
[2023-07-15 06:54] LABS: #Basophils 0.03 10x3/uL (0.0-0.2); %Basophils 0.4 % (0.0-1.0); %Eosinophils 3.3 % (0.0-10.0); %Lymphocytes 10.3 % (21.0-51.0); %Monocytes 12.2 % (0.0-10.0); %Neutrophils 73.4 % (42.0-75.0); Hematocrit 41.5 % (42.0-52.0); Hemoglobin 13.7 g/dL (14.0-18.0); Mean Corpuscular Hemoglobin 27.6 pg (27.0-31.0); Mean Corpuscular Volume 83.7 fL (78.0-98.0); Mean Platelet Volume 10.6 fL (7.4-10.4); Platelet Count 218 10x3/uL (130-400); RBC Distribution Width 21.9 % (11.5-14.5); Red Blood Cell (RBC) Count 4.96 mill/uL (4.70-6.10)
[2023-07-15 07:35] LABS: Globulin 3.6 g/dL (2.4-3.5)
[2023-07-15 07:39] LABS: ALT (SGPT) 22 U/L (8-55); AST (SGOT) 25 U/L (5-34); Albumin 2.6 g/dL (3.4-4.8); Alkaline Phosphatase 70 U/L (40-110); Anion Gap 16 mmol/L (10-20); BUN (Urea Nitrogen) 25 mg/dL (8.4-25.7); Bilirubin, Total 0.5 mg/dL (0.2-1.2); Calc. Creatinine Clearance 76 mL/min (70-130); Calcium 8.9 mg/dL (7.8-10.44); Carbon Dioxide 21 mmol/L (23-31); Chloride 107 mmol/L (98-107); Estimated GFR 66; Glucose 104 mg/dL (83-110); Protein, Total 6.2 g/dL (5.8-8.1); Sodium 140 mmol/L (136-145)
[2023-07-15 15:56] VITALS: BP 159/72; TEMP 97.3
== END 2023-07-15 16:04 | disposition home or self-care (01) | DRG 690 ==
LOC: ERS 16:06 → T4-A 22:17 → OBSVTOIN 07-14 13:25
PROVIDERS: ADMIT Family Medicine; ATTEND Family Medicine
DX: N39.0 Urinary tract infection, site not specified (principal); E87.1 Hypo-osmolality and hyponatremia; Z16.24 Resistance to multiple antibiotics; C61 Malignant neoplasm of prostate; J44.9 Chronic obstructive pulmonary disease, unspecified; E66.9 Obesity, unspecified; I25.10 Atherosclerotic heart disease of native coronary artery without angina pectoris; E78.5 Hyperlipidemia, unspecified; G47.33 Obstructive sleep apnea (adult) (pediatric); Z90.49 Acquired absence of other specified parts of digestive tract; Z95.1 Presence of aortocoronary bypass graft; Z90.79 Acquired absence of other genital organ(s); Z79.899 Other long term (current) drug therapy; Z98.890 Other specified postprocedural states; Z82.49 Family history of ischemic heart disease and other diseases of the circulatory system; Z83.3 Family history of diabetes mellitus
CPT/HCPCS: 36415; 74177; 80053; 81001; 83605; 83930; 83935; 84145; 84300; 85025; 87040; 87077; 87086; 87186; 96365; 96366; J1956; J7120; Q9967

== ENCOUNTER 2023-11-05 07:56 | Outpatient (CLI) | payer MEDICARE, OTHER ==
[2023-11-05] MEDS ORDERED: Iopamidol 370 76% 100 ML VIAL ONE (13:52)
== END 2023-11-05 07:57 | disposition home or self-care (01) ==
LOC: CT 07:56
PROVIDERS: ATTEND Urology
DX: C61 Malignant neoplasm of prostate (principal); N30.40 Irradiation cystitis without hematuria; N28.9 Disorder of kidney and ureter, unspecified; R35.0 Frequency of micturition; N35.919 Unspecified urethral stricture, male, unspecified site; N39.45 Continuous leakage; N32.89 Other specified disorders of bladder; K57.30 Diverticulosis of large intestine without perforation or abscess without bleeding; K59.00 Constipation, unspecified; N28.89 Other specified disorders of kidney and ureter; Z90.79 Acquired absence of other genital organ(s)
CPT/HCPCS: 74178; Q9967

== ENCOUNTER 2024-03-30 12:21 | Outpatient (CLI) | payer MEDICARE, OTHER ==
[2024-03-30 14:12] LABS: #Basophils 0.08 10x3/uL (0.0-0.2); %Basophils 0.9 % (0.0-1.0); %Eosinophils 1.8 % (0.0-10.0); %Lymphocytes 10.9 % (21.0-51.0); Hematocrit 58.7 % (42.0-52.0); Mean Corpuscular HGB CONC 32.4 g/dL (32.0-36.0); Mean Corpuscular Hemoglobin 26.4 pg (27.0-31.0); Mean Corpuscular Volume 81.6 fL (78.0-98.0); Mean Platelet Volume 10.8 fL (7.4-10.4); Platelet Count 228 10x3/uL (130-400); RBC Distribution Width 19.1 % (11.5-14.5); Red Blood Cell (RBC) Count 7.19 mill/uL (4.70-6.10)
[2024-03-30 14:21] LABS: Anion Gap 12 mmol/L (10-20); BUN (Urea Nitrogen) 18 mg/dL (8.4-25.7); Calc. Creatinine Clearance 0 mL/min (70-130); Calcium 9.3 mg/dL (7.8-10.44); Carbon Dioxide 23 mmol/L (23-31); Chloride 106 mmol/L (98-107); Estimated GFR 82; Glucose 85 mg/dL (83-110); Potassium 4.1 mmol/L (3.5-5.1); Sodium 137 mmol/L (136-145)
[2024-03-30 14:23] LABS: Bacteria/HPF None Seen HPF (None Seen); Bilirubin Negative (Negative); Blood, Urine 1+ (Negative); Clarity Clear (Clear); Glucose, Urine (Dipstick) Normal (Negative); Ketone, Urine Negative (Negative); Leukocyte 75 Leu/uL (Negative); Nitrite Negative (Negative); Protein, Urine (Dipstick) 300 mg/dL (Neg-Trace); Prothrombin Time 13.4 sec (12.0-14.7); Specific Gravity, Urine 1.021 (1.002-1.036); Squamous Epithelial None Seen HPF (0-3); Urobilinogen Normal mg/dL (Less than 2); WBC/HPF 21-50 HPF (0-3)
[2024-03-30 14:42] LABS: PTT 32.4 sec (22.9-36.1)
== END 2024-03-30 12:22 | disposition home or self-care (01) ==
LOC: LABBT 12:21
PROVIDERS: ATTEND Urology
DX: Z01.818 Encounter for other preprocedural examination (principal); N30.40 Irradiation cystitis without hematuria; R35.0 Frequency of micturition; C61 Malignant neoplasm of prostate; N28.9 Disorder of kidney and ureter, unspecified; R39.15 Urgency of urination; R31.0 Gross hematuria; R33.9 Retention of urine, unspecified; R06.02 Shortness of breath; R60.0 Localized edema; R82.89 Other abnormal findings on cytological and histological examination of urine; N35.919 Unspecified urethral stricture, male, unspecified site; N39.45 Continuous leakage; N32.89 Other specified disorders of bladder; Z95.1 Presence of aortocoronary bypass graft
CPT/HCPCS: 80048; 81001; 84153; 85025; 85610; 85730; 87086; 93005; 93010

== ENCOUNTER 2025-03-06 10:07 | Outpatient (CLI) | payer MEDICARE, OTHER | END 2025-03-06 10:08 | disposition home or self-care (01) | LOC: ULT 10:07 | PROVIDERS: ATTEND Urology | DX: C61 Malignant neoplasm of prostate (principal); N28.9 Disorder of kidney and ureter, unspecified; N30.40 Irradiation cystitis without hematuria; N13.30 Unspecified hydronephrosis | CPT/HCPCS: 76770 ==